=== PATIENT | female | born 1985 | race American Indian/Alaskan Native ===

== ENCOUNTER 2016-05-15 03:18 | Emergency (ER) | payer OTHER ==
[2016-05-15 05:17] LABS: Basophils % (Auto) 0.5 % (0.0-1.8); Eosinophils % (Auto) 1.4 % (0.0-4.3); Hemoglobin 14.2 gm/dl (10.1-14.3); Mean Corpuscular HGB Conc 35 % (30-34); Mean Corpuscular Hemoglobin 32 pg (28-32); Mean Corpuscular Volume 91 fl (79-97); Platelet Count 241 K/mm3 (140-440); Red Blood Count 4.51 M/mm3 (3.65-5.03); Red Cell Distribution Width 13.8 % (13.2-15.2); White Blood Count 7.9 K/mm3 (4.5-11.0)
[2016-05-15 05:23] LABS: BUN/Creatinine Ratio 17.14; Blood Urea Nitrogen 12 mg/dL (7-17); Calcium 9.2 mg/dL (8.4-10.2); Carbon Dioxide 24 mmol/L (22-30); Chloride 98.1 mmol/L (98-107); Glucose 122 mg/dL (65-100); Potassium 4.3 mmol/L (3.6-5.0); Sodium 137 mmol/L (137-145)
[2016-05-15 05:44] LABS: Anion Gap 19 mmol/L
[2016-05-15 09:32] VITALS: BP 125/87
--- NOTE | 2016-05-15 10:12 | Emergency Department Report ---
ED ENT HPI - General Chief complaint: Sore Throat Stated complaint: SORE THROAT Time Seen by Provider: 05/15/16 09:40 Source: patient Mode of arrival: Ambulatory Limitations: No Limitations - History of Present Illness Initial comments: 31 y/o female complain of sore throat x 2 month . complaint: sore throat Onset/Timin -: days(s) Location: throat Severity: moderate Severity scale (0 -10): 3 Quality: aching Consistency: constant Improves with: none Worsens with: none - Related Data Previous Rx's Medication Instructions Recorded Last Taken Type Azithromycin [Zithromax Z-LUCAS] 250 mg PO DAILY #7 tab 12/29/12 01/03/13 07:30 Rx Prednisone 20 mg PO QDAY #5 tablet 12/29/12 Unknown Rx Ciprofloxacin HCl [Cipro] 500 mg PO Q12H #14 tab 09/02/14 Unknown Rx HYDROcodone/APAP 5-325 [Pima 1 each PO Q6HR PRN #20 tablet 09/02/14 Unknown Rx 5/325] Ibuprofen [Motrin] 600 mg PO Q8H PRN #50 tablet 09/02/14 Unknown Rx Amoxicillin [Amoxicillin TAB] 875 mg PO BID #20 tablet 04/03/16 Unknown Rx Cetirizine HCl [ZyrTEC] 10 mg PO QDAY #30 capsule 04/03/16 Unknown Rx Fluticasone [Flonase] 1 spray NS QDAY #1 bottle 04/03/16 Unknown Rx guaiFENesin/DEXTROMETHORPHAN 1 each PO BID #20 tbmp.12hr 04/03/16 Unknown Rx [Mucinex Dm ER 1,200-60 mg Tab] ALBUTEROL Inhaler [Proair] 2 puff IH QID PRN #1 inhalation 04/06/16 Unknown Rx Azelastine 0.1% (Nf) [Astelin (Nf)] 137 mcg NS QDAY #1 ml 04/06/16 Unknown Rx Ibuprofen [Motrin] 600 mg PO Q8H PRN #20 tablet 04/06/16 Unknown Rx Amoxicillin/K Clav Tab [Augmentin 1 tab PO Q12HR #20 tab 05/15/16 Unknown Rx 875 mg] Ibuprofen [Motrin] 800 mg PO Q8HR PRN #30 tablet 05/15/16 Unknown Rx Allergies Allergy/AdvReac Type Severity Reaction Status Date / Time Sulfa (Sulfonamide Allergy Unknown Verified 05/15/16 03:21 Antibiotics) ED Dental HPI - General Chief complaint: Sore Throat Stated complaint: SORE THROAT Time Seen by Provider: 05/15/16 09:40 Source: patient Mode of arrival: Ambulatory Limitations: No Limitations - Related Data Previous Rx's Medication Instructions Recorded Last Taken Type Azithromycin [Zithromax Z-LUCAS] 250 mg PO DAILY #7 tab 12/29/12 01/03/13 07:30 Rx Prednisone 20 mg PO QDAY #5 tablet 12/29/12 Unknown Rx Ciprofloxacin HCl [Cipro] 500 mg PO Q12H #14 tab 09/02/14 Unknown Rx HYDROcodone/APAP 5-325 [Pima 1 each PO Q6HR PRN #20 tablet 09/02/14 Unknown Rx 5/325] Ibuprofen [Motrin] 600 mg PO Q8H PRN #50 tablet 09/02/14 Unknown Rx Amoxicillin [Amoxicillin TAB] 875 mg PO BID #20 tablet 04/03/16 Unknown Rx Cetirizine HCl [ZyrTEC] 10 mg PO QDAY #30 capsule 04/03/16 Unknown Rx Fluticasone [Flonase] 1 spray NS QDAY #1 bottle 04/03/16 Unknown Rx guaiFENesin/DEXTROMETHORPHAN 1 each PO BID #20 tbmp.12hr 04/03/16 Unknown Rx [Mucinex Dm ER 1,200-60 mg Tab] ALBUTEROL Inhaler [Proair] 2 puff IH QID PRN #1 inhalation 04/06/16 Unknown Rx Azelastine 0.1% (Nf) [Astelin (Nf)] 137 mcg NS QDAY #1 ml 04/06/16 Unknown Rx Ibuprofen [Motrin] 600 mg PO Q8H PRN #20 tablet 04/06/16 Unknown Rx Amoxicillin/K Clav Tab [Augmentin 1 tab PO Q12HR #20 tab 05/15/16 Unknown Rx 875 mg] Ibuprofen [Motrin] 800 mg PO Q8HR PRN #30 tablet 05/15/16 Unknown Rx Allergies Allergy/AdvReac Type Severity Reaction Status Date / Time Sulfa (Sulfonamide Allergy Unknown Verified 05/15/16 03:21 Antibiotics) ED Review of Systems ROS: Stated complaint: SORE THROAT Other details as noted in HPI Constitutional: denies: chills, fever Eyes: denies: eye pain, eye discharge, vision change ENT: throat pain. denies: ear pain Respiratory: denies: cough, shortness of breath, wheezing Cardiovascular: denies: chest pain, palpitations Endocrine: no symptoms reported Gastrointestinal: denies: abdominal pain, nausea, diarrhea Genitourinary: denies: urgency, dysuria, discharge Musculoskeletal: denies: back pain, joint swelling, arthralgia Skin: denies: rash, lesions Neurological: denies: headache, weakness, paresthesias Psychiatric: denies: anxiety, depression Hematological/Lymphatic: denies: easy bleeding, easy bruising ED Past Medical Hx - Past Medical History Previous Medical History?: Yes Hx Congestive Heart Failure: Yes (in 2006 related) Additional medical history: Vaginal delivery x 3 - Surgical History Past Surgical History?: Yes Additional Surgical History: hernia repair x 2, endoscopy - Social History Smoking Status: Never Smoker Substance Use Type: None - Medications Home Medications: Home Medications Medication Instructions Recorded Confirmed Last Taken Type Azithromycin [Zithromax Z-LUCAS] 250 mg PO DAILY #7 tab 12/29/12 01/03/13 07:30 Rx Prednisone 20 mg PO QDAY #5 tablet 12/29/12 01/03/13 Unknown Rx Ciprofloxacin HCl [Cipro] 500 mg PO Q12H #14 tab 09/02/14 Unknown Rx HYDROcodone/APAP 5-325 [Pima 1 each PO Q6HR PRN #20 tablet 09/02/14 Unknown Rx 5/325] Ibuprofen [Motrin] 600 mg PO Q8H PRN #50 tablet 09/02/14 Unknown Rx Amoxicillin [Amoxicillin TAB] 875 mg PO BID #20 tablet 04/03/16 Unknown Rx Cetirizine HCl [ZyrTEC] 10 mg PO QDAY #30 capsule 04/03/16 Unknown Rx Fluticasone [Flonase] 1 spray NS QDAY #1 bottle 04/03/16 Unknown Rx guaiFENesin/DEXTROMETHORPHAN 1 each PO BID #20 tbmp.12hr 04/03/16 Unknown Rx [Mucinex Dm ER 1,200-60 mg Tab] ALBUTEROL Inhaler [Proair] 2 puff IH QID PRN #1 inhalation 04/06/16 Unknown Rx Azelastine 0.1% (Nf) [Astelin (Nf)] 137 mcg NS QDAY #1 ml 04/06/16 Unknown Rx Ibuprofen [Motrin] 600 mg PO Q8H PRN #20 tablet 04/06/16 Unknown Rx Amoxicillin/K Clav Tab [Augmentin 1 tab PO Q12HR #20 tab 05/15/16 Unknown Rx 875 mg] Ibuprofen [Motrin] 800 mg PO Q8HR PRN #30 tablet 05/15/16 Unknown Rx ED Physical Exam - General Limitations: No Limitations General appearance: alert, in no apparent distress - Head Head exam: Present: atraumatic, normocephalic - Eye Eye exam: Present: normal appearance - ENT ENT exam: Present: mucous membranes moist - Expanded ENT Exam Expanded Ear exam: Present: normal external inspection Mouth exam: Absent: drooling, trismus, muffled voice Throat exam: Positive: tonsillomegaly, tonsillar exudate - Neck Neck exam: Present: normal inspection - Respiratory Respiratory exam: Present: normal lung sounds bilaterally. Absent: respiratory distress - Cardiovascular Cardiovascular Exam: Present: regular rate, normal rhythm. Absent: systolic murmur, diastolic murmur, rubs, gallop - GI/Abdominal GI/Abdominal exam: Present: soft, normal bowel sounds - Extremities Exam Extremities exam: Present: normal inspection - Back Exam Back exam: Present: normal inspection - Neurological Exam Neurological exam: Present: alert, oriented X3 - Psychiatric Psychiatric exam: Present: normal affect, normal mood - Skin Skin exam: Present: warm, dry, intact, normal color. Absent: rash ED Course Vital Signs 05/15/16 05/15/16 03:22 09:31 Temperature 99.3 F 99.4 F Pulse Rate 97 H 91 H Respiratory 18 Rate Blood Pressure 148/91 Blood Pressure 125/87 [Left] O2 Sat by Pulse 99 99 Oximetry ED Medical Decision Making - Lab Data Result diagrams: 05/15/16 04:47 05/15/16 04:47 - Medical Decision Making Pharyngitis pt has been evaluate three time in the last month for sore throat .pt to follow up with ENT Critical care attestation.: If time is entered above; I have spent that time in minutes in the direct care of this critically ill patient, excluding procedure time. ED Disposition Clinical Impression: Pharyngitis Qualifiers: Pharyngitis/tonsillitis etiology: unspecified etiology Qualified Code(s): J02.9 - Acute pharyngitis, unspecified Disposition: DISCHARGED TO HOME OR SELFCARE Is pt being admited?: No Does the pt Need Aspirin: No Condition: Stable Instructions: Pharyngitis (ED) Additional Instructions: follow up with ENT Prescriptions: Amoxicillin/K Clav Tab [Augmentin 875 mg] 1 tab PO Q12HR #20 tab Ibuprofen [Motrin] 800 mg PO Q8HR PRN #30 tablet PRN Reason: Pain Referrals: PRIMARY CAREMD [Primary Care Provider] - 3-5 Days MIGNON HORTON MD [Staff Physician] - 3-5 Days Forms: Work/School Release Form(ED) Time of Disposition: 10:15
== END 2016-05-15 10:21 | disposition home or self-care (01) ==
LOC: ED 03:18
DX: J02.9 Acute pharyngitis, unspecified (principal); I50.9 Heart failure, unspecified; Z88.2 Allergy status to sulfonamides
CPT/HCPCS: 36415; 80048; 85025; 87116; 87430; 99283

== ENCOUNTER 2016-05-17 18:19 | Emergency (ER) | payer OTHER ==
--- NOTE | 2016-05-17 23:14 | Emergency Department Report ---
ED ENT HPI - General Chief complaint: Sore Throat Stated complaint: FEVER/SORE THROAT/BODY ACHES Time Seen by Provider: 05/17/16 23:10 Source: patient Mode of arrival: Ambulatory Limitations: No Limitations - History of Present Illness Initial comments: 31-year-old female comes in for sore throat that's been going on since 2015. She was most recently seen on 05/15/2016 for sore throat with cultures that came back negative for strep. She still complains of difficulty swallowing pain not improved while being on Augmentin. She also reports that she is still running a fever. MD complaint: sore throat - Related Data Previous Rx's Medication Instructions Recorded Last Taken Type Azithromycin [Zithromax Z-LUCAS] 250 mg PO DAILY #7 tab 12/29/12 01/03/13 07:30 Rx Prednisone 20 mg PO QDAY #5 tablet 12/29/12 Unknown Rx Ciprofloxacin HCl [Cipro] 500 mg PO Q12H #14 tab 09/02/14 Unknown Rx HYDROcodone/APAP 5-325 [Mccormick 1 each PO Q6HR PRN #20 tablet 09/02/14 Unknown Rx 5/325] Ibuprofen [Motrin] 600 mg PO Q8H PRN #50 tablet 09/02/14 Unknown Rx Amoxicillin [Amoxicillin TAB] 875 mg PO BID #20 tablet 04/03/16 Unknown Rx Cetirizine HCl [ZyrTEC] 10 mg PO QDAY #30 capsule 04/03/16 Unknown Rx Fluticasone [Flonase] 1 spray NS QDAY #1 bottle 04/03/16 Unknown Rx guaiFENesin/DEXTROMETHORPHAN 1 each PO BID #20 tbmp.12hr 04/03/16 Unknown Rx [Mucinex Dm ER 1,200-60 mg Tab] ALBUTEROL Inhaler [Proair] 2 puff IH QID PRN #1 inhalation 04/06/16 Unknown Rx Azelastine 0.1% (Nf) [Astelin (Nf)] 137 mcg NS QDAY #1 ml 04/06/16 Unknown Rx Ibuprofen [Motrin] 600 mg PO Q8H PRN #20 tablet 04/06/16 Unknown Rx Amoxicillin/K Clav Tab [Augmentin 1 tab PO Q12HR #20 tab 05/15/16 Unknown Rx 875 mg] Ibuprofen [Motrin] 800 mg PO Q8HR PRN #30 tablet 05/15/16 Unknown Rx Prednisone [predniSONE 5 mg (6-Day 5 mg PO .TAPER #1 tab.ds.pk 05/18/16 Unknown Rx Pack, 21 Tabs)] Allergies Allergy/AdvReac Type Severity Reaction Status Date / Time Sulfa (Sulfonamide Allergy Unknown Verified 05/15/16 03:21 Antibiotics) ED Dental HPI - General Chief complaint: Sore Throat Stated complaint: FEVER/SORE THROAT/BODY ACHES Time Seen by Provider: 05/17/16 23:10 Source: patient Mode of arrival: Ambulatory Limitations: No Limitations - Related Data Previous Rx's Medication Instructions Recorded Last Taken Type Azithromycin [Zithromax Z-LUCAS] 250 mg PO DAILY #7 tab 12/29/12 01/03/13 07:30 Rx Prednisone 20 mg PO QDAY #5 tablet 12/29/12 Unknown Rx Ciprofloxacin HCl [Cipro] 500 mg PO Q12H #14 tab 09/02/14 Unknown Rx HYDROcodone/APAP 5-325 [Mccormick 1 each PO Q6HR PRN #20 tablet 09/02/14 Unknown Rx 5/325] Ibuprofen [Motrin] 600 mg PO Q8H PRN #50 tablet 09/02/14 Unknown Rx Amoxicillin [Amoxicillin TAB] 875 mg PO BID #20 tablet 04/03/16 Unknown Rx Cetirizine HCl [ZyrTEC] 10 mg PO QDAY #30 capsule 04/03/16 Unknown Rx Fluticasone [Flonase] 1 spray NS QDAY #1 bottle 04/03/16 Unknown Rx guaiFENesin/DEXTROMETHORPHAN 1 each PO BID #20 tbmp.12hr 04/03/16 Unknown Rx [Mucinex Dm ER 1,200-60 mg Tab] ALBUTEROL Inhaler [Proair] 2 puff IH QID PRN #1 inhalation 04/06/16 Unknown Rx Azelastine 0.1% (Nf) [Astelin (Nf)] 137 mcg NS QDAY #1 ml 04/06/16 Unknown Rx Ibuprofen [Motrin] 600 mg PO Q8H PRN #20 tablet 04/06/16 Unknown Rx Amoxicillin/K Clav Tab [Augmentin 1 tab PO Q12HR #20 tab 05/15/16 Unknown Rx 875 mg] Ibuprofen [Motrin] 800 mg PO Q8HR PRN #30 tablet 05/15/16 Unknown Rx Prednisone [predniSONE 5 mg (6-Day 5 mg PO .TAPER #1 tab.ds.pk 05/18/16 Unknown Rx Pack, 21 Tabs)] Allergies Allergy/AdvReac Type Severity Reaction Status Date / Time Sulfa (Sulfonamide Allergy Unknown Verified 05/15/16 03:21 Antibiotics) ED Review of Systems ROS: Stated complaint: FEVER/SORE THROAT/BODY ACHES Other details as noted in HPI Constitutional: chills, fever ENT: throat pain Respiratory: denies: cough, shortness of breath, wheezing Cardiovascular: denies: chest pain, palpitations Endocrine: no symptoms reported Gastrointestinal: denies: abdominal pain, nausea, diarrhea Genitourinary: denies: urgency, dysuria, discharge Musculoskeletal: denies: back pain, joint swelling, arthralgia ED Past Medical Hx - Past Medical History Previous Medical History?: Yes Hx Congestive Heart Failure: Yes (in 2005 related) Additional medical history: Vaginal delivery x 3 - Surgical History Past Surgical History?: Yes Additional Surgical History: hernia repair x 2, endoscopy - Social History Smoking Status: Never Smoker Substance Use Type: None - Medications Home Medications: Home Medications Medication Instructions Recorded Confirmed Last Taken Type Azithromycin [Zithromax Z-LUCAS] 250 mg PO DAILY #7 tab 12/29/12 01/03/13 07:30 Rx Prednisone 20 mg PO QDAY #5 tablet 12/29/12 01/03/13 Unknown Rx Ciprofloxacin HCl [Cipro] 500 mg PO Q12H #14 tab 09/02/14 Unknown Rx HYDROcodone/APAP 5-325 [Mccormick 1 each PO Q6HR PRN #20 tablet 09/02/14 Unknown Rx 5/325] Ibuprofen [Motrin] 600 mg PO Q8H PRN #50 tablet 09/02/14 Unknown Rx Amoxicillin [Amoxicillin TAB] 875 mg PO BID #20 tablet 04/03/16 Unknown Rx Cetirizine HCl [ZyrTEC] 10 mg PO QDAY #30 capsule 04/03/16 Unknown Rx Fluticasone [Flonase] 1 spray NS QDAY #1 bottle 04/03/16 Unknown Rx guaiFENesin/DEXTROMETHORPHAN 1 each PO BID #20 tbmp.12hr 04/03/16 Unknown Rx [Mucinex Dm ER 1,200-60 mg Tab] ALBUTEROL Inhaler [Proair] 2 puff IH QID PRN #1 inhalation 04/06/16 Unknown Rx Azelastine 0.1% (Nf) [Astelin (Nf)] 137 mcg NS QDAY #1 ml 04/06/16 Unknown Rx Ibuprofen [Motrin] 600 mg PO Q8H PRN #20 tablet 04/06/16 Unknown Rx Amoxicillin/K Clav Tab [Augmentin 1 tab PO Q12HR #20 tab 05/15/16 Unknown Rx 875 mg] Ibuprofen [Motrin] 800 mg PO Q8HR PRN #30 tablet 05/15/16 Unknown Rx Prednisone [predniSONE 5 mg (6-Day 5 mg PO .TAPER #1 tab.ds.pk 05/18/16 Unknown Rx Pack, 21 Tabs)] ED Physical Exam - General Limitations: No Limitations General appearance: alert - ENT ENT exam: Present: mucous membranes moist, TM's normal bilaterally - Expanded ENT Exam Expanded Throat exam: Positive: tonsillar erythema, tonsillomegaly, tonsillar exudate - Neck Neck exam: Present: tenderness, full ROM, lymphadenopathy - Respiratory Respiratory exam: Present: normal lung sounds bilaterally - Cardiovascular Cardiovascular Exam: Present: regular rate, normal rhythm, normal heart sounds - GI/Abdominal GI/Abdominal exam: Present: soft. Absent: distended, tenderness ED Course Vital Signs 05/17/16 05/17/16 05/18/16 20:14 23:44 00:14 Temperature 100.9 F H Pulse Rate 122 H Respiratory 18 16 16 Rate Blood Pressure 152/96 Blood Pressure [Right] O2 Sat by Pulse 100 Oximetry 05/18/16 00:25 Temperature 100.2 F H Pulse Rate 116 H Respiratory 16 Rate Blood Pressure Blood Pressure 142/83 [Right] O2 Sat by Pulse 97 Oximetry ED Medical Decision Making - Lab Data Result diagrams: 05/17/16 23:20 05/17/16 23:20 - Radiology Data Radiology results: image reviewed FINAL REPORT PROCEDURE: XR NECK SOFT TISSUE TECHNIQUE: Soft tissue neck radiographs, 2 views, including AP and lateral. CPT 18289 HISTORY: throat pain that is not responding to abx COMPARISON: No prior studies are available for comparison. FINDINGS: Bone mineralization: Normal. Alignment: Normal. Soft tissues: Epiglottis and hypopharyngeal soft tissues normal. Foreign bodies: None. IMPRESSION: Normal Examination. Transcribed By: [facility] Dictated By: ZOIE MCCANN MD Electronically Authenticated By: ZOIE MCCANN MD Signed Date/Time: 05/18/16 0304 - Medical Decision Making Patient's been evaluated by this provider. This case was discussed with Dr. Kraft. Please IV. The patient a bolus of normal saline 1000 mL's as well as an IV of ceftriaxone and Decadron and morphine 2 mg. Patient was reevaluated she says she felt somewhat better but still difficulty swallowing so this provider when ahead and did a soft tissue neck x-ray which came back within normal limits. We will discharge patient on a prednisone taper she is to continue with the Augmentin and ibuprofen for pain and coverage. Will place patient for referral to Dr. Nolan Pablo ear nose and throat doctor. Patient verbalized understanding. Critical care attestation.: If time is entered above; I have spent that time in minutes in the direct care of this critically ill patient, excluding procedure time. ED Disposition Clinical Impression: Sublingual gland swelling Pharyngitis Qualifiers: Pharyngitis/tonsillitis etiology: unspecified etiology Qualified Code(s): J02.9 - Acute pharyngitis, unspecified Disposition: DISCHARGED TO HOME OR SELFCARE Is pt being admited?: No Does the pt Need Aspirin: No Condition: Stable Instructions: Pharyngitis (ED) Additional Instructions: Complete her antibiotics as prescribed on May 15, take the steroid taper pack as prescribed. We will refer you to her ear nose and throat for further evaluation. Can continue with the pain medication as prescribed. Prescriptions: Prednisone [predniSONE 5 mg (6-Day Pack, 21 Tabs)] 5 mg PO .TAPER #1 tab.ds.pk Referrals: SHOAIB WOOD MD [Staff Physician] - 3-5 Days NEO BRIONES MD [Staff Physician] - 3-5 Days Forms: Work/School Release Form(ED)
[2016-05-17 23:29] LABS: Hematocrit 40.2 % (30.3-42.9); Hemoglobin 13.3 gm/dl (10.1-14.3); Mean Corpuscular HGB Conc 33 % (30-34); Mean Corpuscular Hemoglobin 30 pg (28-32); Mean Corpuscular Volume 91 fl (79-97); Platelet Count 210 K/mm3 (140-440); Red Blood Count 4.42 M/mm3 (3.65-5.03); Red Cell Distribution Width 13.5 % (13.2-15.2); White Blood Count 8.7 K/mm3 (4.5-11.0)
[2016-05-17] MEDS: DECADRON IV ONE (23:43)
[2016-05-17] MEDS: MORPHINE IV ONE (23:44)
[2016-05-17] MEDS: NACL 0.9% 1000 ML IV SCH (23:44)
[2016-05-17 23:51] LABS: Anion Gap 20 mmol/L; Blood Urea Nitrogen 6 mg/dL (7-17); Calcium 9.2 mg/dL (8.4-10.2); Carbon Dioxide 23 mmol/L (22-30); Chloride 93.2 mmol/L (98-107); Glucose 113 mg/dL (65-100); Potassium 3.7 mmol/L (3.6-5.0); Sodium 132 mmol/L (137-145)
[2016-05-18] MEDS: ROCEPHIN 500 MG in NACL 0.9% 50 ML IV SCH (00:24)
[2016-05-18 00:26] VITALS: BP 142/83
--- NOTE | 2016-05-18 02:07 | XRay Report ---
FINAL REPORT PROCEDURE: XR NECK SOFT TISSUE TECHNIQUE: Soft tissue neck radiographs, 2 views, including AP and lateral. CPT 32941 HISTORY: throat pain that is not responding to abx COMPARISON: No prior studies are available for comparison. FINDINGS: Bone mineralization: Normal. Alignment: Normal. Soft tissues: Epiglottis and hypopharyngeal soft tissues normal. Foreign bodies: None. IMPRESSION: Normal Examination.
== END 2016-05-18 03:26 | disposition home or self-care (01) ==
LOC: ED 18:19
DX: K11.8 Other diseases of salivary glands (principal); J02.9 Acute pharyngitis, unspecified; I50.9 Heart failure, unspecified; Z88.2 Allergy status to sulfonamides
CPT/HCPCS: 36415; 70360; 80048; 85027; 86308; 96361; 96365; 96375; 99284; J0696; J1100; J2270; J7030

== ENCOUNTER 2016-08-10 18:38 | Emergency (ER) | payer SELFPAY ==
[2016-08-10 20:07] VITALS: BP 144/107
--- NOTE | 2016-08-10 22:05 | Emergency Department Report ---
ED ENT HPI - General Chief complaint: Sore Throat Stated complaint: SORETHROAT Time Seen by Provider: 08/10/16 21:07 Source: patient Mode of arrival: Ambulatory Limitations: No Limitations - History of Present Illness Initial comments: This is a 31-year-old female that presents with sore throat for the past 7 months. Patient stated that sore throat comes and goes from time to time. Patient also stated that she take a test 3 days ago and is positive. Patient stated has been treating sore throat with many different antibiotics and steroids. Last dose of antibiotics was last month of Rocephin IV in the ED. Patient denies fever, chills, shortness of breath, chest pain, numbness or tingling, nausea or vomiting, cough, wheezing, rhinorrhea, abdominal pain, pelvic pain. Patient stated she does not have a primary care doctor and is currently in the process of getting one. At this visit the patient denies sore throat but believes it will return either tomorrow or couple days. Patient is well-nourished. She does not seem toxic or ill in appearance. No signs of distress noted. MD complaint: sore throat -: Gradual, month(s) (7) Location: throat Severity scale (0 -10): 0 Consistency: intermittent Context-Epistaxis: history of similar Associated Symptoms: denies: fever, cough, gum swelling, toothache, pain with swallowing, sore throat, tinnitus, hearing loss, discharge from ear, rhinorrhea - Related Data Previous Rx's Medication Instructions Recorded Last Taken Type Azithromycin [Zithromax Z-LUCAS] 250 mg PO DAILY #7 tab 12/29/12 01/03/13 07:30 Rx Prednisone 20 mg PO QDAY #5 tablet 12/29/12 Unknown Rx Ciprofloxacin HCl [Cipro] 500 mg PO Q12H #14 tab 09/02/14 Unknown Rx HYDROcodone/APAP 5-325 [[place] 1 each PO Q6HR PRN #20 tablet 09/02/14 Unknown Rx 5/325] Ibuprofen [Motrin] 600 mg PO Q8H PRN #50 tablet 09/02/14 Unknown Rx Amoxicillin [Amoxicillin TAB] 875 mg PO BID #20 tablet 04/03/16 Unknown Rx Cetirizine HCl [ZyrTEC] 10 mg PO QDAY #30 capsule 04/03/16 Unknown Rx Fluticasone [Flonase] 1 spray NS QDAY #1 bottle 04/03/16 Unknown Rx guaiFENesin/DEXTROMETHORPHAN 1 each PO BID #20 tbmp.12hr 04/03/16 Unknown Rx [Mucinex Dm ER 1,200-60 mg Tab] ALBUTEROL Inhaler [Proair] 2 puff IH QID PRN #1 inhalation 04/06/16 Unknown Rx Azelastine 0.1% (Nf) [Astelin (Nf)] 137 mcg NS QDAY #1 ml 04/06/16 Unknown Rx Ibuprofen [Motrin] 600 mg PO Q8H PRN #20 tablet 04/06/16 Unknown Rx Amoxicillin/K Clav Tab [Augmentin 1 tab PO Q12HR #20 tab 05/15/16 Unknown Rx 875 mg] Ibuprofen [Motrin] 800 mg PO Q8HR PRN #30 tablet 05/15/16 Unknown Rx Prednisone [predniSONE 5 mg (6-Day 5 mg PO .TAPER #1 tab.ds.pk 05/18/16 Unknown Rx Pack, 21 Tabs)] Allergies Allergy/AdvReac Type Severity Reaction Status Date / Time Sulfa (Sulfonamide Allergy Unknown Verified 05/15/16 03:21 Antibiotics) ED Dental HPI - General Chief complaint: Sore Throat Stated complaint: SORETHROAT Time Seen by Provider: 08/10/16 21:07 Source: patient Mode of arrival: Ambulatory Limitations: No Limitations - Related Data Previous Rx's Medication Instructions Recorded Last Taken Type Azithromycin [Zithromax Z-LUCAS] 250 mg PO DAILY #7 tab 12/29/12 01/03/13 07:30 Rx Prednisone 20 mg PO QDAY #5 tablet 12/29/12 Unknown Rx Ciprofloxacin HCl [Cipro] 500 mg PO Q12H #14 tab 09/02/14 Unknown Rx HYDROcodone/APAP 5-325 [[place] 1 each PO Q6HR PRN #20 tablet 09/02/14 Unknown Rx 5/325] Ibuprofen [Motrin] 600 mg PO Q8H PRN #50 tablet 09/02/14 Unknown Rx Amoxicillin [Amoxicillin TAB] 875 mg PO BID #20 tablet 04/03/16 Unknown Rx Cetirizine HCl [ZyrTEC] 10 mg PO QDAY #30 capsule 04/03/16 Unknown Rx Fluticasone [Flonase] 1 spray NS QDAY #1 bottle 04/03/16 Unknown Rx guaiFENesin/DEXTROMETHORPHAN 1 each PO BID #20 tbmp.12hr 04/03/16 Unknown Rx [Mucinex Dm ER 1,200-60 mg Tab] ALBUTEROL Inhaler [Proair] 2 puff IH QID PRN #1 inhalation 04/06/16 Unknown Rx Azelastine 0.1% (Nf) [Astelin (Nf)] 137 mcg NS QDAY #1 ml 04/06/16 Unknown Rx Ibuprofen [Motrin] 600 mg PO Q8H PRN #20 tablet 04/06/16 Unknown Rx Amoxicillin/K Clav Tab [Augmentin 1 tab PO Q12HR #20 tab 05/15/16 Unknown Rx 875 mg] Ibuprofen [Motrin] 800 mg PO Q8HR PRN #30 tablet 05/15/16 Unknown Rx Prednisone [predniSONE 5 mg (6-Day 5 mg PO .TAPER #1 tab.ds.pk 05/18/16 Unknown Rx Pack, 21 Tabs)] Allergies Allergy/AdvReac Type Severity Reaction Status Date / Time Sulfa (Sulfonamide Allergy Unknown Verified 05/15/16 03:21 Antibiotics) ED Review of Systems ROS: Stated complaint: SORETHROAT Other details as noted in HPI Constitutional: denies: chills, fever Eyes: denies: eye pain, eye discharge, vision change ENT: denies: ear pain, throat pain Respiratory: denies: cough, shortness of breath, wheezing Cardiovascular: denies: chest pain, palpitations Endocrine: no symptoms reported Gastrointestinal: denies: abdominal pain, nausea, diarrhea Genitourinary: denies: urgency, dysuria, discharge Musculoskeletal: denies: back pain, joint swelling, arthralgia Skin: denies: rash, lesions Neurological: denies: headache, weakness, paresthesias Psychiatric: denies: anxiety, depression Hematological/Lymphatic: denies: easy bleeding, easy bruising ED Past Medical Hx - Past Medical History Hx Congestive Heart Failure: Yes (in 2005 related) Additional medical history: Vaginal delivery x 3 - Surgical History Additional Surgical History: hernia repair x 2, endoscopy - Social History Smoking Status: Former Smoker Substance Use Type: None - Medications Home Medications: Home Medications Medication Instructions Recorded Confirmed Last Taken Type Azithromycin [Zithromax Z-LUCAS] 250 mg PO DAILY #7 tab 12/29/12 01/03/13 07:30 Rx Prednisone 20 mg PO QDAY #5 tablet 12/29/12 01/03/13 Unknown Rx Ciprofloxacin HCl [Cipro] 500 mg PO Q12H #14 tab 09/02/14 Unknown Rx HYDROcodone/APAP 5-325 [[place] 1 each PO Q6HR PRN #20 tablet 09/02/14 Unknown Rx 5/325] Ibuprofen [Motrin] 600 mg PO Q8H PRN #50 tablet 09/02/14 Unknown Rx Amoxicillin [Amoxicillin TAB] 875 mg PO BID #20 tablet 04/03/16 Unknown Rx Cetirizine HCl [ZyrTEC] 10 mg PO QDAY #30 capsule 04/03/16 Unknown Rx Fluticasone [Flonase] 1 spray NS QDAY #1 bottle 04/03/16 Unknown Rx guaiFENesin/DEXTROMETHORPHAN 1 each PO BID #20 tbmp.12hr 04/03/16 Unknown Rx [Mucinex Dm ER 1,200-60 mg Tab] ALBUTEROL Inhaler [Proair] 2 puff IH QID PRN #1 inhalation 04/06/16 Unknown Rx Azelastine 0.1% (Nf) [Astelin (Nf)] 137 mcg NS QDAY #1 ml 04/06/16 Unknown Rx Ibuprofen [Motrin] 600 mg PO Q8H PRN #20 tablet 04/06/16 Unknown Rx Amoxicillin/K Clav Tab [Augmentin 1 tab PO Q12HR #20 tab 05/15/16 Unknown Rx 875 mg] Ibuprofen [Motrin] 800 mg PO Q8HR PRN #30 tablet 05/15/16 Unknown Rx Prednisone [predniSONE 5 mg (6-Day 5 mg PO .TAPER #1 tab.ds.pk 05/18/16 Unknown Rx Pack, 21 Tabs)] ED Physical Exam - General Limitations: No Limitations General appearance: alert, in no apparent distress - Head Head exam: Present: atraumatic, normocephalic - Eye Eye exam: Present: normal appearance, PERRL, EOMI - ENT ENT exam: Present: normal exam, normal orophraynx, mucous membranes moist, TM's normal bilaterally, normal external ear exam - Neck Neck exam: Present: normal inspection, full ROM. Absent: tenderness, meningismus, lymphadenopathy - Respiratory Respiratory exam: Present: normal lung sounds bilaterally. Absent: respiratory distress, wheezes, rales, rhonchi, stridor, chest wall tenderness, accessory muscle use, decreased breath sounds, prolonged expiratory - Cardiovascular Cardiovascular Exam: Present: regular rate, normal rhythm. Absent: systolic murmur, diastolic murmur, rubs, gallop - GI/Abdominal GI/Abdominal exam: Present: soft, normal bowel sounds. Absent: distended, tenderness, guarding, rebound, rigid - Extremities Exam Extremities exam: Present: normal inspection, full ROM, normal capillary refill. Absent: tenderness, pedal edema, joint swelling, calf tenderness - Back Exam Back exam: Present: normal inspection - Neurological Exam Neurological exam: Present: alert, oriented X3, CN II-XII intact, normal gait - Psychiatric Psychiatric exam: Present: normal affect, normal mood - Skin Skin exam: Present: warm, dry, intact, normal color. Absent: rash ED Course Vital Signs 08/10/16 08/10/16 20:00 22:31 Temperature 98.9 F Pulse Rate 93 H 89 Respiratory 18 Rate Blood Pressure 144/107 Blood Pressure 144/107 [Left] O2 Sat by Pulse 100 100 Oximetry ED Medical Decision Making - Medical Decision Making ED course: 29-year-old female that presents with sore throat 7 months. 1- strep throat has been obtained in the ED and sent to lab to rule out Streptococcus infection. Negative. 2- I notify the patient to follow up with an ENT doctor if symptoms proceed. I also instructed the patient for no current treatment due to no symptoms of infection or needing of steroids or any other treatment. 3- patient agrees to discharge plan. Patient does not seem toxic or ill in appearance at the time of discharge. No signs of distress noted. Critical care attestation.: If time is entered above; I have spent that time in minutes in the direct care of this critically ill patient, excluding procedure time. 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 Forms: Work/School Release Form(ED)
== END 2016-08-10 22:53 | disposition home or self-care (01) ==
LOC: ED 18:38
DX: J02.9 Acute pharyngitis, unspecified (principal); Z88.2 Allergy status to sulfonamides; Z87.891 Personal history of nicotine dependence; I50.9 Heart failure, unspecified
CPT/HCPCS: 87116; 87430; 99282

== ENCOUNTER 2016-09-07 13:20 | Emergency (ER) | payer SELFPAY ==
[2016-09-07 14:10] LABS: Basophils % (Auto) 0.5 % (0.0-1.8); Eosinophils % (Auto) 1.7 % (0.0-4.3); Hematocrit 38.8 % (30.3-42.9); Mean Corpuscular HGB Conc 34 % (30-34); Mean Corpuscular Hemoglobin 30 pg (28-32); Mean Corpuscular Volume 90 fl (79-97); Platelet Count 288 K/mm3 (140-440); Red Blood Count 4.31 M/mm3 (3.65-5.03); Red Cell Distribution Width 13.2 % (13.2-15.2); White Blood Count 7.8 K/mm3 (4.5-11.0)
--- NOTE | 2016-09-07 16:07 | Ultrasound Report ---
ULTRASOUND OB LESS THAN 14 WEEKS - TRANSABDOMINAL AND TRANSVAGINAL INDICATION: , bleeding. Serum beta-hCG 12,903 units. COMPARISON: None similar. FINDINGS: Transabdominal and transvaginal pelvic sonography performed in this patient with LMP of 07/13/2016 and estimated menstrual age of 8 weeks and zero days. A 10.3 x 6.5 x 6.7 cm uterus demonstrates mean gestational sac diameter of 2.28 cm, corresponding to 7 weeks and 2 days. Mean crown-rump length of 0.58 cm corresponds to 6 weeks and 3 days. No heart tones though obtained. Yolk sac measures 3 mm. No pelvic free fluid. Right ovary is 3.3 x 3 x 3 cm with a 1.5 cm cyst. Unremarkable left ovary measures 2.4 x 1.6 x 2.3 cm. CONCLUSION: 1. Sonographic findings representing intrauterine demise with ultrasound estimated gestational age of approximately 6 weeks and 6 days. Please correlate. 2. Right ovarian cyst. Thank you for the opportunity to participate in this patient's care.
--- NOTE | 2016-09-07 16:31 | Emergency Department Report ---
ED Female HPI - General Chief complaint: Vaginal Bleeding Stated complaint: 8 WKS /VAG BLEEDING Time Seen by Provider: 09/07/16 16:13 Source: patient Mode of arrival: Ambulatory Limitations: No Limitations - History of Present Illness Initial comments: PT states she is 8 weeks . PT states that she started spotting while at work today. PT states she has not seen an OUTPATIENT PSYCHIATRIST for this . PT states that her last was 4 years ago and that is the last time she thinks she has been seen by OUTPATIENT PSYCHIATRIST. PT denies abd pain or n/v MD Complaint: vaginal bleeding -: Sudden Severity scale (0 -10): 0 Consistency: constant Improves with: none Are you Now?: Yes Last Menstrual Period: 07/13/16 EDC: 04/19/17 Associated Symptoms: denies other symptoms, vaginal bleeding. denies: abdominal pain, nausea/vomiting, fever/chills, loss of appetite, dysuria - Related Data Sexually active: Yes : 5 Para: 4 Previous Rx's Medication Instructions Recorded Last Taken Type Acetaminophen/Codeine [Tylenol #3] 1 tab PO Q6H PRN #12 tab 09/07/16 Unknown Rx Allergies Allergy/AdvReac Type Severity Reaction Status Date / Time Sulfa (Sulfonamide Allergy Unknown Verified 05/15/16 03:21 Antibiotics) ED Review of Systems ROS: Stated complaint: 8 WKS /VAG BLEEDING Other details as noted in HPI Comment: All other systems reviewed and negative Constitutional: denies: fever Gastrointestinal: denies: abdominal pain, nausea, vomiting Genitourinary: abnormal menses (spotting now). denies: dysuria Psychiatric: anxiety (concerned ) ED Past Medical Hx - Past Medical History Previous Medical History?: Yes Hx Congestive Heart Failure: Yes (in 2006 related) Additional medical history: Vaginal delivery x 3 - Surgical History Past Surgical History?: Yes Additional Surgical History: hernia repair x 2, endoscopy - Social History Smoking Status: Former Smoker Substance Use Type: Non Opiate Pain, Prescribed - Medications Home Medications: Home Medications Medication Instructions Recorded Confirmed Last Taken Type Acetaminophen/Codeine [Tylenol #3] 1 tab PO Q6H PRN #12 tab 09/07/16 Unknown Rx ED Physical Exam - General Limitations: No Limitations General appearance: alert, in no apparent distress - Head Head exam: Present: atraumatic, normocephalic, normal inspection - Eye Eye exam: Present: normal appearance, PERRL, EOMI. Absent: conjunctival injection - ENT ENT exam: Present: normal exam, normal external ear exam - Neck Neck exam: Present: normal inspection, full ROM - Respiratory Respiratory exam: Present: normal lung sounds bilaterally. Absent: respiratory distress - Cardiovascular Cardiovascular Exam: Present: regular rate, normal rhythm - GI/Abdominal GI/Abdominal exam: Present: soft. Absent: tenderness - Extremities Exam Extremities exam: Present: normal inspection, full ROM - Back Exam Back exam: Present: normal inspection, full ROM - Neurological Exam Neurological exam: Present: alert, oriented X3 - Psychiatric Psychiatric exam: Present: normal affect, normal mood - Skin Skin exam: Present: warm, dry, intact ED Course Vital Signs 09/07/16 09/07/16 13:37 17:27 Temperature 98.9 F 98 F Pulse Rate 78 65 Respiratory 18 14 Rate Blood Pressure 128/83 Blood Pressure 125/90 [Left] O2 Sat by Pulse 100 99 Oximetry - Reevaluation(s) Reevaluation #1: 09/07/16 16:33 PT aware of US result. PT tearful. PT aware of expected course. PT given strict return precautions. 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 PT has no questions at this time. Reevaluation #2: 09/07/16 16:35 Dr [place] aware of pt and agrees with plan of care - Pulse Oximetry Interpretation Digit-Finger Initial Pulse Oximetry Readin Actions Taken: none ED Medical Decision Making - Lab Data Result diagrams: 09/07/16 13:52 Lab Results 09/07/16 09/07/16 09/07/16 Range/Units 13:52 13:52 14:43 WBC 7.8 (4.5-11.0) K/mm3 RBC 4.31 (3.65-5.03) M/mm3 Hgb 13.0 (10.1-14.3) gm/dl Hct 38.8 (30.3-42.9) % MCV 90 (79-97) fl MCH 30 (28-32) pg MCHC 34 (30-34) % RDW 13.2 (13.2-15.2) % Plt Count 288 (140-440) K/mm3 Lymph % (Auto) 35.4 H (13.4-35.0) % [place] % (Auto) 7.1 (0.0-7.3) % Eos % (Auto) 1.7 (0.0-4.3) % Baso % (Auto) 0.5 (0.0-1.8) % Lymph # 2.7 (1.2-5.4) K/mm3 [place] # 0.6 (0.0-0.8) K/mm3 Eos # 0.1 (0.0-0.4) K/mm3 Baso # 0.0 (0.0-0.1) K/mm3 Seg Neutrophils % 55.3 (40.0-70.0) % Seg Neutrophils # 4.3 (1.8-7.7) K/mm3 HCG, Quant 73631 H (0-4) mIU/mL Blood Type O POSITIVE - Radiology Data Radiology results: report reviewed US - demise 6 weeks, 6 days - Differential Diagnosis ectopic , early , subchorionic hemorrage, demise Critical Care Time: No Critical care attestation.: If time is entered above; I have spent that time in minutes in the direct care of this critically ill patient, excluding procedure time. ED Disposition Clinical Impression: demise Disposition: DISCHARGED TO HOME OR SELFCARE Is pt being admited?: No Does the pt Need Aspirin: No Condition: Stable Instructions: Threatened Miscarriage (ED) Additional Instructions: No driving or ETOH after taking Tylenol #3 for pain Return to the ED if you are having heavy vaginal bleeding, saturating more than a pad an hour Call OUTPATIENT PSYCHIATRIST tomorrow and set up your follow up appointment Prescriptions: Acetaminophen/Codeine [Tylenol #3] 1 tab PO Q6H PRN #12 tab PRN Reason: Pain , Severe (7-10) Referrals: [facility] [Provider Group] - 3-5 Days PRIMARY CARE, [Primary Care Provider] - 3-5 Days Forms: Work/School Release Form(ED) Time of Disposition: 16:43
[2016-09-07 17:17] LABS: Bilirubin,Urine NEG (Negative); Blood,Urine LG (Negative); Ketones,Urine NEG (Negative); Leukocyte Esterase,Urine NEG (Negative); Mucus,Urine FEW /HPF; Nitrite,Urine NEG (Negative); Protein,Urine <15 mg/dL mg/dL (Negative); Urobilinogen,Urine < 2.0 mg/dL (<2.0)
[2016-09-07 17:30] VITALS: BP 125/90
== END 2016-09-07 17:27 | disposition home or self-care (01) ==
LOC: ED 13:20
DX: O20.9 Hemorrhage in early pregnancy, unspecified (principal); I50.9 Heart failure, unspecified; Z87.891 Personal history of nicotine dependence; Z3A.08 8 weeks gestation of pregnancy
CPT/HCPCS: 36415; 76801; 76817; 81001; 84702; 85025; 86900; 86901; 99284

== ENCOUNTER 2016-09-14 10:59 | Emergency (ER) | payer MEDICAID ==
--- NOTE | 2016-09-14 12:02 | Emergency Department Report ---
Chief Complaint: Vaginal Bleeding Stated Complaint: ABD PAIN Time Seen by Provider: 09/14/16 11:56 - HPI History of Present Illness: PT states she was told last week that she is having a miscarriage, pt states she did not follow up with [employer]INING [employer]. PT states this am she started having pelvic pain and vaginal bleeding. PT States she is passing large clots. pt states she has used 2 pads today. - ROS Review of Systems: + pelvic pain + vaginal bleeding + anxiety - Exam Physical Exam: labs, us MSE screening note: Focused history and physical exam performed. Due to findings the following was ordered: ED Disposition for MSE Condition: Stable
[2016-09-14 12:25] LABS: Basophils % (Auto) 0.5 % (0.0-1.8); Eosinophils % (Auto) 1.8 % (0.0-4.3); Hematocrit 37.5 % (30.3-42.9); Hemoglobin 12.6 gm/dl (10.1-14.3); Mean Corpuscular HGB Conc 34 % (30-34); Mean Corpuscular Hemoglobin 30 pg (28-32); Mean Corpuscular Volume 89 fl (79-97); Platelet Count 277 K/mm3 (140-440); Red Cell Distribution Width 13.2 % (13.2-15.2); White Blood Count 7.6 K/mm3 (4.5-11.0)
[2016-09-14 12:44] LABS: Alanine Aminotransferase 14 units/L (7-56); Albumin 4.2 g/dL (3.9-5); Albumin/Globulin Ratio 1.4 %; Alkaline Phosphatase 47 units/L (35-129); Anion Gap 19 mmol/L; BUN/Creatinine Ratio 13.75; Blood Urea Nitrogen 11 mg/dL (7-17); Calcium 9.2 mg/dL (8.4-10.2); Carbon Dioxide 24 mmol/L (22-30); Chloride 101.1 mmol/L (98-107); Glucose 95 mg/dL (65-100); Potassium 4.2 mmol/L (3.6-5.0); Sodium 140 mmol/L (137-145); Total Protein 7.2 g/dL (6.3-8.2)
[2016-09-14 13:27] LABS: INR 1.03 (0.87-1.13)
[2016-09-14 13:28] LABS: Partial Thromboplastin Time 30.7 Sec. (24.2-36.6)
--- NOTE | 2016-09-14 13:55 | Ultrasound Report ---
Transabdominal and transvaginal pelvic ultrasound. History: Vaginal bleeding. The patient's serum hCG at the time of the study is 2243 as opposed to 12,903 on September 07. Findings: There is no evidence of intrauterine on today's study. The endometrial is thickened at 2.2 cm. The ovaries are normal in size and configuration. There is no fluid within the cul-de-sac. Impression: Thickened endometrium with no evidence of an acute on today's study. On the previous study of September 07, there was evidence of demise.
--- NOTE | 2016-09-14 15:43 | Emergency Department Report ---
ED Female HPI - General Chief complaint: Vaginal Bleeding Stated complaint: ABD PAIN Time Seen by Provider: 09/14/16 11:56 Source: patient, old records reviewed (Type and RH ) Mode of arrival: Ambulatory Limitations: No Limitations - History of Present Illness MD Complaint: vaginal bleeding -: Gradual, hour(s) Severity: severe Severity scale (0 -10): 10 Quality: other (feels like contractions ) Improves with: none Worsens with: none Are you Now?: Yes (dx with miscarriage last week ) Associated Symptoms: vaginal bleeding, abdominal pain. denies: nausea/vomiting , fever/chills, headaches, dysuria, shortness of breath - Related Data Sexually active: Yes Previous Rx's Medication Instructions Recorded Last Taken Type Acetaminophen/Codeine [Tylenol #3] 1 tab PO Q6H PRN #12 tab 09/07/16 Unknown Rx Allergies Allergy/AdvReac Type Severity Reaction Status Date / Time Sulfa (Sulfonamide Allergy Unknown Verified 09/14/16 12:03 Antibiotics) ED Review of Systems ROS: Stated complaint: ABD PAIN Other details as noted in HPI Constitutional: denies: chills, fever Gastrointestinal: abdominal pain Genitourinary: abnormal menses, other (vaginal bleeding - used two pads today ) ED Past Medical Hx - Past Medical History Hx Congestive Heart Failure: Yes (in 2006 related) Additional medical history: Vaginal delivery x 3 - Surgical History Additional Surgical History: hernia repair x 2, endoscopy - Social History Smoking Status: Never Smoker Substance Use Type: None - Medications Home Medications: Home Medications Medication Instructions Recorded Confirmed Last Taken Type Acetaminophen/Codeine [Tylenol #3] 1 tab PO Q6H PRN #12 tab 09/07/16 Unknown Rx ED Physical Exam - General Limitations: No Limitations General appearance: alert, in no apparent distress - Head Head exam: Present: atraumatic, normocephalic, normal inspection - Eye Eye exam: Present: normal appearance. Absent: conjunctival injection - ENT ENT exam: Present: normal exam, normal external ear exam - Neck Neck exam: Present: normal inspection, full ROM - Respiratory Respiratory exam: Present: normal lung sounds bilaterally. Absent: respiratory distress - Cardiovascular Cardiovascular Exam: Present: regular rate, normal rhythm - GI/Abdominal GI/Abdominal exam: Present: soft. Absent: tenderness - External exam: Present: other (pt declined. pt states she is feeling better and she wants to go home. ) - Extremities Exam Extremities exam: Present: normal inspection, full ROM - Back Exam Back exam: Present: normal inspection, full ROM. Absent: tenderness, CVA tenderness (R), CVA tenderness (L) - Neurological Exam Neurological exam: Present: alert, oriented X3 - Psychiatric Psychiatric exam: Present: normal affect, normal mood - Skin Skin exam: Present: warm, dry, intact, normal color ED Course Vital Signs 09/14/16 09/14/16 11:57 15:59 Temperature 99.6 F 99.2 F Pulse Rate 107 H 81 Respiratory 18 16 Rate Blood Pressure 127/85 128/88 O2 Sat by Pulse 100 100 Oximetry - Reevaluation(s) Reevaluation #1: 09/14/16 15:32 PT states she passed a large clot prior to going to US. PT states her pain has decreased after passing the clot. PT is wanting to be dc'd home. PT aware of lab results. PT aware of US results. 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 - Pulse Oximetry Interpretation Digit-Finger Initial Pulse Oximetry Readin Actions Taken: none ED Medical Decision Making - Lab Data Result diagrams: 09/14/16 12:03 09/14/16 12:03 Lab Results 09/14/16 09/14/16 09/14/16 Range/Units 12:03 12:03 12:03 WBC 7.6 (4.5-11.0) K/mm3 RBC 4.20 (3.65-5.03) M/mm3 Hgb 12.6 (10.1-14.3) gm/dl Hct 37.5 (30.3-42.9) % MCV 89 (79-97) fl MCH 30 (28-32) pg MCHC 34 (30-34) % RDW 13.2 (13.2-15.2) % Plt Count 277 (140-440) K/mm3 Lymph % (Auto) 22.1 (13.4-35.0) % [place] % (Auto) 7.2 (0.0-7.3) % Eos % (Auto) 1.8 (0.0-4.3) % Baso % (Auto) 0.5 (0.0-1.8) % Lymph # 1.7 (1.2-5.4) K/mm3 [place] # 0.5 (0.0-0.8) K/mm3 Eos # 0.1 (0.0-0.4) K/mm3 Baso # 0.0 (0.0-0.1) K/mm3 Seg Neutrophils % 68.4 (40.0-70.0) % Seg Neutrophils # 5.2 (1.8-7.7) K/mm3 PT 13.4 (12.2-14.9) Sec. INR 1.03 (0.87-1.13) APTT 30.7 (24.2-36.6) Sec. Sodium (137-145) mmol/L Potassium (3.6-5.0) mmol/L Chloride (98-107) mmol/L Carbon Dioxide (22-30) mmol/L Anion Gap mmol/L BUN (7-17) mg/dL Creatinine (0.7-1.2) mg/dL Estimated GFR ml/min BUN/Creatinine Ratio % Glucose (65-100) mg/dL Calcium (8.4-10.2) mg/dL Total Bilirubin (0.1-1.2) mg/dL AST (5-40) units/L ALT (7-56) units/L Alkaline Phosphatase (35-129) units/L Total Protein (6.3-8.2) g/dL Albumin (3.9-5) g/dL Albumin/Globulin Ratio % HCG, Quant 2243 H (0-4) mIU/mL 09/14/16 Range/Units 12:03 WBC (4.5-11.0) K/mm3 RBC (3.65-5.03) M/mm3 Hgb (10.1-14.3) gm/dl Hct (30.3-42.9) % MCV (79-97) fl MCH (28-32) pg MCHC (30-34) % RDW (13.2-15.2) % Plt Count (140-440) K/mm3 Lymph % (Auto) (13.4-35.0) % [place] % (Auto) (0.0-7.3) % Eos % (Auto) (0.0-4.3) % Baso % (Auto) (0.0-1.8) % Lymph # (1.2-5.4) K/mm3 [place] # (0.0-0.8) K/mm3 Eos # (0.0-0.4) K/mm3 Baso # (0.0-0.1) K/mm3 Seg Neutrophils % (40.0-70.0) % Seg Neutrophils # (1.8-7.7) K/mm3 PT (12.2-14.9) Sec. INR (0.87-1.13) APTT (24.2-36.6) Sec. Sodium 140 (137-145) mmol/L Potassium 4.2 (3.6-5.0) mmol/L Chloride 101.1 (98-107) mmol/L Carbon Dioxide 24 (22-30) mmol/L Anion Gap 19 mmol/L BUN 11 (7-17) mg/dL Creatinine 0.8 (0.7-1.2) mg/dL Estimated GFR > 60 ml/min BUN/Creatinine Ratio 13.75 % Glucose 95 (65-100) mg/dL Calcium 9.2 (8.4-10.2) mg/dL Total Bilirubin 0.30 (0.1-1.2) mg/dL AST 15 (5-40) units/L ALT 14 (7-56) units/L Alkaline Phosphatase 47 (35-129) units/L Total Protein 7.2 (6.3-8.2) g/dL Albumin 4.2 (3.9-5) g/dL Albumin/Globulin Ratio 1.4 % HCG, Quant (0-4) mIU/mL bhcg decreased from previous visit. cbc stable - Radiology Data Radiology results: report reviewed US-no evidence of intrauterine - Differential Diagnosis retained products, misscarriage Critical Care Time: No Critical care attestation.: If time is entered above; I have spent that time in minutes in the direct care of this critically ill patient, excluding procedure time. ED Disposition Clinical Impression: Miscarriage Disposition: Z ELOPED Is pt being admited?: No Does the pt Need Aspirin: No Condition: Stable Instructions: Spontaneous Miscarriage (ED) Referrals: PRIMARY CARE, [Primary Care Provider] - 3-5 Days RENUKA NICOLAS MD [Staff Physician] - 3-5 Days Forms: Work/School Release Form(ED) Time of Disposition: 15:51
[2016-09-14 16:01] VITALS: BP 128/88
== END 2016-09-14 17:09 | disposition left against medical advice (07) ==
LOC: ED 10:59
DX: N93.8 Other specified abnormal uterine and vaginal bleeding (principal); R10.9 Unspecified abdominal pain; Z88.2 Allergy status to sulfonamides
CPT/HCPCS: 36415; 76801; 76817; 80053; 84702; 85025; 85610; 85730

== ENCOUNTER 2017-03-19 15:59 | Emergency (ER) | payer MEDICAID, OTHER ==
[2017-03-19 16:44] LABS: Basophils % (Auto) 0.9 % (0.0-1.8); Eosinophils % (Auto) 1.7 % (0.0-4.3); Hematocrit 37.7 % (30.3-42.9); Hemoglobin 12.4 gm/dl (10.1-14.3); Mean Corpuscular HGB Conc 33 % (30-34); Mean Corpuscular Hemoglobin 30 pg (28-32); Mean Corpuscular Volume 91 fl (79-97); Platelet Count 285 K/mm3 (140-440); Red Blood Count 4.13 M/mm3 (3.65-5.03); Red Cell Distribution Width 13.3 % (13.2-15.2)
[2017-03-19 17:08] LABS: Anion Gap 20 mmol/L; BUN/Creatinine Ratio 17; Blood Urea Nitrogen 12 mg/dL (7-17); Carbon Dioxide 24 mmol/L (22-30); Chloride 99.5 mmol/L (98-107); Glucose 88 mg/dL (65-100); Potassium 4.1 mmol/L (3.6-5.0); Sodium 139 mmol/L (137-145)
[2017-03-19 19:01] LABS: Bacteria,Urine 1+ /HPF (Negative); Bilirubin,Urine NEG (Negative); Blood,Urine NEG (Negative); Ketones,Urine NEG (Negative); Leukocyte Esterase,Urine SM (Negative); Mucus,Urine 2+ /HPF; Nitrite,Urine NEG (Negative)
[2017-03-19 21:40] VITALS: BP 143/89
== END 2017-03-19 21:50 | disposition left against medical advice (07) ==
LOC: ED 15:59
DX: R42 Dizziness and giddiness (principal); Z53.21 Procedure and treatment not carried out due to patient leaving prior to being seen by health care provider
CPT/HCPCS: 36415; 80048; 81001; 85025; 93005; 93010

== ENCOUNTER 2017-08-22 08:28 | Emergency (ER) | payer MEDICAID, OTHER ==
[2017-08-22 08:35] VITALS: BP 164/88
--- NOTE | 2017-08-22 10:51 | Emergency Department Report ---
HPI - General Chief Complaint: Sore Throat Time Seen by Provider: 08/22/17 10:12 - HPI HPI: Patient is a 32-year-old female who presents to ED complaining of throat pain for the past 2 weeks. Patient states she's had this symptoms many times before. She states she has a symptoms about every month. Patient states that she's been tested for strep and every time causes are negative. Patient states sometimes the throat pain is worse than other times. She denies difficulty swallowing. She states mild discomfort with swallowing foods. She denies fevers/chills/nausea vomiting/abdominal pain/chest pain/sobreath ED Past Medical Hx - Past Medical History Previous Medical History?: Yes Hx Congestive Heart Failure: Yes (in 2006 related) Additional medical history: Vaginal delivery x 3, SORE THROAT - Surgical History Past Surgical History?: Yes Additional Surgical History: hernia repair x 2, endoscopy - Social History Smoking Status: Former Smoker Substance Use Type: Alcohol, Marijuana - Medications Home Medications: Home Medications Medication Instructions Recorded Confirmed Last Taken Type Acetaminophen/Codeine [Tylenol #3] 1 tab PO Q6H PRN #12 tab 09/07/16 Unknown Rx Ibuprofen [Motrin] 800 mg PO Q8HR PRN #30 tablet 08/22/17 Unknown Rx Nystas/Diphen/Xyl Visc/Mylanta 30 ml PO TID PRN #240 ml 08/22/17 Unknown Rx [Magic Mouthwash] ED Review of Systems ROS: Stated complaint: SORE THROAT Other details as noted in HPI Constitutional: denies: chills, fever Eyes: denies: eye pain, eye discharge, vision change ENT: denies: ear pain, throat pain Respiratory: denies: cough, shortness of breath, wheezing Cardiovascular: denies: chest pain, palpitations Endocrine: no symptoms reported Gastrointestinal: denies: abdominal pain, nausea, diarrhea Genitourinary: denies: urgency, dysuria, discharge Musculoskeletal: denies: back pain, joint swelling, arthralgia Skin: denies: rash, lesions Neurological: denies: headache, weakness, paresthesias Psychiatric: denies: anxiety, depression Hematological/Lymphatic: denies: easy bleeding, easy bruising Physical Exam - Physical Exam Vital Signs: Vital Signs 08/22/17 08:31 Temperature 98.9 F Pulse Rate 91 H Respiratory 20 Rate Blood Pressure 164/88 O2 Sat by Pulse 100 Oximetry Physical Exam: GENERAL: Alert and oriented x3, no apparent distress, Normal Gait, atraumatic. HEAD: Head is normocephalic and a-traumatic. EARS: symetrical, atraumatic, non tender, ear canal clear and moderate cerumen, tympanic membrance non inflamed. gross auditory nml bilaterally. MOUTH:Mouth is well hydrated and without lesions. Tonsils nonerythematous or swollen, Uvula midline, Tongue not elevated. Mucous membranes are moist. Posterior pharynx clear, exudate on bilateral tonsils, no lesions. Patent airways. NECK: Supple. Non edematous, No lymphadenopathy or thyromegaly. No C-spine tenderness LUNGS: Symetrical with respiration, No wheezing, no rales or crackles, CTAB. HEART: S1, S2 present, regular rate and rhythm without murmur, no rubs, no gallops. Non tender to palpation ABDOMEN: No organomegaly was noted,Positive bowel sounds, soft, and non- distended. . Nontender to palpation on all Quadrants, NO CVA tenderness. NEUROLOGIC: The patient is cooperative with no focal neurologic deficits. SKIN: Warm and dry, No lesions, No ulceration or induration present. ED Course Vital Signs 08/22/17 08:31 Temperature 98.9 F Pulse Rate 91 H Respiratory 20 Rate Blood Pressure 164/88 O2 Sat by Pulse 100 Oximetry ED Medical Decision Making - Lab Data Result diagrams: 08/22/17 11:02 08/22/17 11:02 - Medical Decision Making 32-year-old female presents with tonsillitis ED course: CBC, CMP, strep, mono test all collected ALL LABS WITHIN NORMAL LIMITS DISCUSSED THIS FINDINGS WITH THE PATIENT. DISCUSSED THE PATIENT SHE'LL NEED TO FOLLOW-UP WITH HER PRIMARY CARE PHYSICIAN OR ENT SPECIALIST DUE to recurrent tonsillitis. Vital signs are stable Patient is in no acute or respiratory distress. She understands all instructions given. Critical care attestation.: If time is entered above; I have spent that time in minutes in the direct care of this critically ill patient, excluding procedure time. ED Disposition Clinical Impression: Tonsillitis, chronic Disposition: DC-01 TO HOME OR SELFCARE Is pt being admited?: No Does the pt Need Aspirin: No Condition: Stable Instructions: Tonsillitis (ED) Additional Instructions: Make sure to follow up with the primary care physician as discussed. Take all your medications as you've been prescribed. If you have any worsening symptoms or develop new symptoms please return to ED immediately. Prescriptions: Ibuprofen [Motrin] 800 mg PO Q8HR PRN #30 tablet PRN Reason: Pain Nystas/Diphen/Xyl Visc/Mylanta [Magic Mouthwash] 30 ml PO TID PRN #240 ml PRN Reason: Pain Referrals: PRIMARY CARE, [Primary Care Provider] - 3-5 Days [facility] [Provider Group] - 3-5 Days [facility] [Provider Group] - 3-5 Days [facility] [Outside] - 3-5 Days [facility] [Outside] - 3-5 Days Forms: Work/School Release Form(ED) Time of Disposition: 13:49
[2017-08-22 11:38] LABS: Basophils % (Auto) 0.4 % (0.0-1.8); Eosinophils # (Auto) 0.1 K/mm3 (0.0-0.4); Eosinophils % (Auto) 1.6 % (0.0-4.3); Hematocrit 38.9 % (30.3-42.9); Hemoglobin 13.2 gm/dl (10.1-14.3); Lymphocytes # (Auto) 1.7 K/mm3 (1.2-5.4); Lymphocytes % (Auto) 28.5 % (13.4-35.0); Mean Corpuscular HGB Conc 34 % (30-34); Mean Corpuscular Hemoglobin 31 pg (28-32); Mean Corpuscular Volume 90 fl (79-97); Monocytes # (Auto) 0.6 K/mm3 (0.0-0.8); Monocytes % (Auto) 9.4 % (0.0-7.3); Platelet Count 259 K/mm3 (140-440); Red Cell Distribution Width 13.5 % (13.2-15.2)
[2017-08-22] MEDS ORDERED: DELTASONE PO ONE (12:26)
[2017-08-22] MEDS ORDERED: TYLENOL/CODEINE PO ONE (12:27)
[2017-08-22 12:47] LABS: Alanine Aminotransferase 27 units/L (7-56); Albumin 4.2 g/dL (3.9-5); BUN/Creatinine Ratio 15; Blood Urea Nitrogen 9 mg/dL (7-17); Hemolysis Index 14
== END 2017-08-22 13:59 | disposition home or self-care (01) ==
LOC: ED 08:28
DX: J35.01 Chronic tonsillitis (principal); I50.9 Heart failure, unspecified; Z87.891 Personal history of nicotine dependence
CPT/HCPCS: 36415; 80053; 85025; 86308; 87116; 87430; 99283; J7512

== ENCOUNTER 2017-12-20 20:32 | Emergency (ER) | payer SELFPAY ==
[2017-12-20 21:30] VITALS: BP 139/92
[2017-12-20] MEDS ORDERED: MOTRIN PO ONE (23:30)
[2017-12-20] MEDS ORDERED: LIDOCAINE VISCOUS 2% PO ONE (23:30)
[2017-12-20] MEDS ORDERED: MOTRIN ONE (23:33)
[2017-12-20] MEDS ORDERED: LIDOCAINE VISCOUS 2% ONE (23:33)
--- NOTE | 2017-12-21 03:07 | Emergency Department Report ---
ED ENT HPI - General Chief complaint: Sore Throat Stated complaint: SORE THROAT Source: patient Mode of arrival: Ambulatory Limitations: No Limitations - History of Present Illness Initial comments: 32-year-old Polish female presents to the emergency room for headache chills achy shoulder and sore throat 1 month. Patient reports frequent sore throats and strep since childhood. Use goes away but this one won't go away. She admits to runny nose nasal congestion headache sneezing postnasal drip. MD complaint: sore throat -: month(s) (1) Location: throat Severity scale (0 -10): 7 Consistency: intermittent Worsens with: swallowing Associated Symptoms: sore throat - Related Data Previous Rx's Medication Instructions Recorded Last Taken Type Acetaminophen/Codeine [Tylenol #3] 1 tab PO Q6H PRN #12 tab 09/07/16 Unknown Rx Ibuprofen [Motrin] 800 mg PO Q8HR PRN #30 tablet 08/22/17 Unknown Rx Nystas/Diphen/Xyl Visc/Mylanta 30 ml PO TID PRN #240 ml 08/22/17 Unknown Rx [Magic Mouthwash] Cephalexin [Keflex] 500 mg PO BID #20 capsule 12/21/17 Unknown Rx Dexchlorpheniram/Phenylephrine 1 each PO Q6H #16 tablet 12/21/17 Unknown Rx [Rymed Tablet] Fluticasone [Flonase] 1 spray NS QDAY #1 bottle 12/21/17 Unknown Rx Allergies Allergy/AdvReac Type Severity Reaction Status Date / Time Sulfa (Sulfonamide Allergy Unknown Verified 09/14/16 12:03 Antibiotics) ED Dental HPI - General Chief complaint: Sore Throat Stated complaint: SORE THROAT Source: patient Mode of arrival: Ambulatory Limitations: No Limitations - Related Data Previous Rx's Medication Instructions Recorded Last Taken Type Acetaminophen/Codeine [Tylenol #3] 1 tab PO Q6H PRN #12 tab 09/07/16 Unknown Rx Ibuprofen [Motrin] 800 mg PO Q8HR PRN #30 tablet 08/22/17 Unknown Rx Nystas/Diphen/Xyl Visc/Mylanta 30 ml PO TID PRN #240 ml 08/22/17 Unknown Rx [Magic Mouthwash] Cephalexin [Keflex] 500 mg PO BID #20 capsule 12/21/17 Unknown Rx Dexchlorpheniram/Phenylephrine 1 each PO Q6H #16 tablet 12/21/17 Unknown Rx [Rymed Tablet] Fluticasone [Flonase] 1 spray NS QDAY #1 bottle 12/21/17 Unknown Rx Allergies Allergy/AdvReac Type Severity Reaction Status Date / Time Sulfa (Sulfonamide Allergy Unknown Verified 09/14/16 12:03 Antibiotics) ED Review of Systems ROS: Stated complaint: SORE THROAT Other details as noted in HPI Constitutional: denies: chills, fever Eyes: denies: eye pain, eye discharge, vision change ENT: throat pain, congestion, other (rhinorrhea, sneezing) Respiratory: cough Cardiovascular: denies: chest pain, palpitations Endocrine: no symptoms reported Gastrointestinal: denies: abdominal pain, nausea, diarrhea Genitourinary: denies: urgency, dysuria, discharge Musculoskeletal: denies: back pain, joint swelling, arthralgia Skin: denies: rash, lesions Neurological: denies: headache, weakness, paresthesias Psychiatric: denies: anxiety, depression Hematological/Lymphatic: denies: easy bleeding, easy bruising ED Past Medical Hx - Past Medical History Previous Medical History?: Yes Hx Congestive Heart Failure: Yes (in 2006 related) Additional medical history: Vaginal delivery x 3, frequent/chronic SORE THROAT - Surgical History Past Surgical History?: Yes Additional Surgical History: hernia repair x 2, endoscopy 1992 - Social History Smoking Status: Never Smoker Substance Use Type: Alcohol - Medications Home Medications: Home Medications Medication Instructions Recorded Confirmed Last Taken Type Acetaminophen/Codeine [Tylenol #3] 1 tab PO Q6H PRN #12 tab 09/07/16 Unknown Rx Ibuprofen [Motrin] 800 mg PO Q8HR PRN #30 tablet 08/22/17 Unknown Rx Nystas/Diphen/Xyl Visc/Mylanta 30 ml PO TID PRN #240 ml 08/22/17 Unknown Rx [Magic Mouthwash] Cephalexin [Keflex] 500 mg PO BID #20 capsule 12/21/17 Unknown Rx Dexchlorpheniram/Phenylephrine 1 each PO Q6H #16 tablet 12/21/17 Unknown Rx [Rymed Tablet] Fluticasone [Flonase] 1 spray NS QDAY #1 bottle 12/21/17 Unknown Rx ED Physical Exam - General Limitations: No Limitations General appearance: alert, in no apparent distress - Head Head exam: Present: atraumatic, normocephalic - Eye Eye exam: Present: EOMI - ENT ENT exam: Present: mucous membranes moist - Expanded ENT Exam Expanded Throat exam: Positive: tonsillar erythema. Negative: tonsillar exudate - Neck Neck exam: Present: full ROM. Absent: tenderness, lymphadenopathy - Respiratory Respiratory exam: Present: normal lung sounds bilaterally. Absent: respiratory distress - Cardiovascular Cardiovascular Exam: Present: regular rate, normal rhythm. Absent: systolic murmur, diastolic murmur, rubs, gallop - Extremities Exam Extremities exam: Present: normal inspection - Neurological Exam Neurological exam: Present: alert, oriented X3 - Psychiatric Psychiatric exam: Present: normal affect, normal mood - Skin Skin exam: Present: warm, dry, intact, normal color. Absent: rash ED Course Vital Signs 12/20/17 21:22 Temperature 99.9 F H Pulse Rate 83 Respiratory 18 Rate Blood Pressure 139/92 O2 Sat by Pulse 99 Oximetry ED Medical Decision Making - Medical Decision Making Patient's been evaluated by this provider fast rate. Strep test negative. Patient was given pain medication for management of pain. Discussed the patient that her strep test was negative this is most likely due to allergic rhinitis with postnasal drip for irritation of her throat. Discharge patient on Ray med, Flonase and ibuprofen. Critical care attestation.: If time is entered above; I have spent that time in minutes in the direct care of this critically ill patient, excluding procedure time. ED Disposition Clinical Impression: Allergic rhinitis Qualifiers: Allergic rhinitis trigger: unspecified Allergic rhinitis seasonality: unspecified Qualified Code(s): J30.9 - Allergic rhinitis, unspecified Sinusitis, acute Qualifiers: Sinusitis location: unspecified location Recurrence: not specified as recurrent Qualified Code(s): J01.90 - Acute sinusitis, unspecified Disposition: DC- TO HOME OR SELFCARE Is pt being admited?: No Does the pt Need Aspirin: No Condition: Stable Instructions: Sinusitis (ED), Allergic Rhinitis (ED) Additional Instructions: Complete antibiotics as prescribed. Use nasal spray and antihistamine pills as prescribed. Please increase her water intake by 2 L while taking medication as this can dry you out. You can continue with Tylenol or Motrin for pain management. If her symptoms persist or gets worse please follow up with her primary care provider. Prescriptions: Cephalexin [Keflex] 500 mg PO BID #20 capsule Dexchlorpheniram/Phenylephrine [Rymed Tablet] 1 each PO Q6H #16 tablet Fluticasone [Flonase] 1 spray NS QDAY #1 bottle Referrals: PRIMARY CARE, [Primary Care Provider] - 3-5 Days Forms: Work/School Release Form(ED)
== END 2017-12-21 03:45 | disposition home or self-care (01) ==
LOC: ED 20:32
DX: J01.90 Acute sinusitis, unspecified (principal); J30.9 Allergic rhinitis, unspecified; I50.9 Heart failure, unspecified; Z88.2 Allergy status to sulfonamides
CPT/HCPCS: 87116; 87430; 99283

== ENCOUNTER 2017-12-24 05:56 | Emergency (ER) | payer SELFPAY ==
[2017-12-24 07:24] VITALS: BP 145/97
[2017-12-24] MEDS ORDERED: MOTRIN PO ONE (08:23)
[2017-12-24 08:47] LABS: Basophils % (Auto) 0.3 % (0.0-1.8); Eosinophils % (Auto) 0.1 % (0.0-4.3); Hematocrit 38.3 % (30.3-42.9); Hemoglobin 12.9 gm/dl (10.1-14.3); Lymphocytes # (Auto) 0.7 K/mm3 (1.2-5.4); Lymphocytes % (Auto) 9.4 % (13.4-35.0); Mean Corpuscular HGB Conc 34 % (30-34); Mean Corpuscular Hemoglobin 30 pg (28-32); Mean Corpuscular Volume 90 fl (79-97); Monocytes # (Auto) 0.5 K/mm3 (0.0-0.8); Monocytes % (Auto) 6.1 % (0.0-7.3); Platelet Count 290 K/mm3 (140-440); Red Blood Count 4.27 M/mm3 (3.65-5.03)
--- NOTE | 2017-12-24 10:53 | Emergency Department Report ---
Blank Doc - Documentation Documentation: Patient is a 32-year-old Female had recurrent pharyngitis. Patient was seen several days ago for sore throat had a strep test that was done that was negative. Patient was put on Keflex. Patient states that she feels like she is getting worse. Patient's been febrile at home. Outpatient several months ago had the same thing and tested negative for mono. [place] test was not done 3 days ago. Monotest will be added and the patient be reassessed. On focused physical exam patient does have exudative pharyngitis. Patient is able to speak in full sentences and does not appear to be in any distress
--- NOTE | 2017-12-24 11:34 | Emergency Department Report ---
ED ENT HPI - General Chief complaint: Sore Throat Stated complaint: CHEST PAIN,SORE THROAT Time Seen by Provider: 12/24/17 10:45 Source: patient Mode of arrival: Ambulatory Limitations: No Limitations - History of Present Illness Initial comments: This is a 32-year-old female nontoxic, well nourished in appearance, no acute signs of distress presents to the ED with c/o of acute on chronic intermittent sore throat x2 months. Patient stated that symptoms come and go. They stated that she was seen 3 days ago and has been prescribed Keflex with no relief. Patient also stated that she has some subjective fevers. Patient denies any drooling or hoarseness. Patient denies any cough. Patient denies any sick contacts. Patient denies any recent travels, long car, recent hospital stays. Patient denies any calf pain or calf tenderness. Patient denies any chest pain , short of breath, fever, chills, nausea, vomiting, hemoptysis, numbness, tingling, headache or stiff neck. Patient states allergies sulfa. Denies significant past medical history. MD complaint: sore throat -: month(s) (2) Location: throat Severity: moderate Severity scale (0 -10): 8 Quality: aching Consistency: constant Improves with: none Worsens with: swallowing Associated Symptoms: pain with swallowing, sore throat. denies: fever, cough, gum swelling, toothache, tinnitus, hearing loss, discharge from ear, rhinorrhea - Related Data Previous Rx's Medication Instructions Recorded Last Taken Type Acetaminophen/Codeine [Tylenol #3] 1 tab PO Q6H PRN #12 tab 09/07/16 Unknown Rx Ibuprofen [Motrin] 800 mg PO Q8HR PRN #30 tablet 08/22/17 Unknown Rx Nystas/Diphen/Xyl Visc/Mylanta 30 ml PO TID PRN #240 ml 08/22/17 Unknown Rx [Magic Mouthwash] Cephalexin [Keflex] 500 mg PO BID #20 capsule 12/21/17 Unknown Rx Dexchlorpheniram/Phenylephrine 1 each PO Q6H #16 tablet 12/21/17 Unknown Rx [Rymed Tablet] Fluticasone [Flonase] 1 spray NS QDAY #1 bottle 12/21/17 Unknown Rx Amoxicillin/K Clav Tab [Augmentin 1 tab PO Q12HR #20 tab 12/24/17 Unknown Rx 875 mg] Ibuprofen [Motrin] 600 mg PO Q8H PRN #30 tablet 12/24/17 Unknown Rx Nystas/Diphen/Xyl Visc/Mylanta 30 ml MM TID PRN 5 Days ml 12/24/17 Unknown Rx [Magic Mouthwash] Allergies Allergy/AdvReac Type Severity Reaction Status Date / Time Sulfa (Sulfonamide Allergy Unknown Verified 09/14/16 12:03 Antibiotics) ED Dental HPI - General Chief complaint: Sore Throat Stated complaint: CHEST PAIN,SORE THROAT Time Seen by Provider: 12/24/17 10:45 Source: patient Mode of arrival: Ambulatory Limitations: No Limitations - Related Data Previous Rx's Medication Instructions Recorded Last Taken Type Acetaminophen/Codeine [Tylenol #3] 1 tab PO Q6H PRN #12 tab 09/07/16 Unknown Rx Ibuprofen [Motrin] 800 mg PO Q8HR PRN #30 tablet 08/22/17 Unknown Rx Nystas/Diphen/Xyl Visc/Mylanta 30 ml PO TID PRN #240 ml 08/22/17 Unknown Rx [Magic Mouthwash] Cephalexin [Keflex] 500 mg PO BID #20 capsule 12/21/17 Unknown Rx Dexchlorpheniram/Phenylephrine 1 each PO Q6H #16 tablet 12/21/17 Unknown Rx [Rymed Tablet] Fluticasone [Flonase] 1 spray NS QDAY #1 bottle 12/21/17 Unknown Rx Amoxicillin/K Clav Tab [Augmentin 1 tab PO Q12HR #20 tab 12/24/17 Unknown Rx 875 mg] Ibuprofen [Motrin] 600 mg PO Q8H PRN #30 tablet 12/24/17 Unknown Rx Nystas/Diphen/Xyl Visc/Mylanta 30 ml MM TID PRN 5 Days ml 12/24/17 Unknown Rx [Magic Mouthwash] Allergies Allergy/AdvReac Type Severity Reaction Status Date / Time Sulfa (Sulfonamide Allergy Unknown Verified 09/14/16 12:03 Antibiotics) ED Review of Systems ROS: Stated complaint: CHEST PAIN,SORE THROAT Other details as noted in HPI Constitutional: denies: chills, fever Eyes: denies: eye pain, eye discharge, vision change ENT: throat pain. denies: ear pain Respiratory: denies: cough, shortness of breath, wheezing Cardiovascular: denies: chest pain, palpitations Endocrine: no symptoms reported Gastrointestinal: denies: abdominal pain, nausea, diarrhea Genitourinary: denies: urgency, dysuria, discharge Musculoskeletal: denies: back pain, joint swelling, arthralgia Skin: denies: rash, lesions Neurological: denies: headache, weakness, paresthesias Psychiatric: denies: anxiety, depression Hematological/Lymphatic: denies: easy bleeding, easy bruising ED Past Medical Hx - Past Medical History Hx Congestive Heart Failure: Yes (in 2006 related) Additional medical history: Vaginal delivery x 3, frequent/chronic SORE THROAT - Surgical History Additional Surgical History: hernia repair x 2, endoscopy 1992 - Social History Smoking Status: Never Smoker Substance Use Type: Alcohol - Medications Home Medications: Home Medications Medication Instructions Recorded Confirmed Last Taken Type Acetaminophen/Codeine [Tylenol #3] 1 tab PO Q6H PRN #12 tab 09/07/16 Unknown Rx Ibuprofen [Motrin] 800 mg PO Q8HR PRN #30 tablet 08/22/17 Unknown Rx Nystas/Diphen/Xyl Visc/Mylanta 30 ml PO TID PRN #240 ml 08/22/17 Unknown Rx [Magic Mouthwash] Cephalexin [Keflex] 500 mg PO BID #20 capsule 12/21/17 Unknown Rx Dexchlorpheniram/Phenylephrine 1 each PO Q6H #16 tablet 12/21/17 Unknown Rx [Rymed Tablet] Fluticasone [Flonase] 1 spray NS QDAY #1 bottle 12/21/17 Unknown Rx Amoxicillin/K Clav Tab [Augmentin 1 tab PO Q12HR #20 tab 12/24/17 Unknown Rx 875 mg] Ibuprofen [Motrin] 600 mg PO Q8H PRN #30 tablet 12/24/17 Unknown Rx Nystas/Diphen/Xyl Visc/Mylanta 30 ml MM TID PRN 5 Days ml 12/24/17 Unknown Rx [Magic Mouthwash] ED Physical Exam - General Limitations: No Limitations General appearance: alert, in no apparent distress - Head Head exam: Present: atraumatic, normocephalic - Eye Eye exam: Present: normal appearance Pupils: Present: normal accommodation - ENT ENT exam: Present: mucous membranes moist - Expanded ENT Exam Expanded Ear exam: Present: normal external inspection Mouth exam: Present: normal external inspection, tongue normal. Absent: drooling, trismus, muffled voice, tongue elevation, laceration Teeth exam: Present: normal inspection Throat exam: Positive: tonsillar erythema, tonsillomegaly (2+), tonsillar exudate, other (Uvula midline). Negative: R peritonsillar mass, L peritonsillar mass - Neck Neck exam: Present: normal inspection, full ROM, lymphadenopathy (bilateral tonsillar). Absent: tenderness, meningismus - Respiratory Respiratory exam: Present: normal lung sounds bilaterally. Absent: respiratory distress, wheezes, rales, rhonchi, stridor, chest wall tenderness, accessory muscle use, decreased breath sounds, prolonged expiratory - Cardiovascular Cardiovascular Exam: Present: regular rate, normal rhythm, normal heart sounds. Absent: bradycardia, tachycardia, irregular rhythm, systolic murmur, diastolic murmur, rubs, gallop - GI/Abdominal GI/Abdominal exam: Present: soft, normal bowel sounds - Extremities Exam Extremities exam: Present: normal inspection, full ROM, normal capillary refill - Back Exam Back exam: Present: normal inspection, full ROM - Neurological Exam Neurological exam: Present: alert, oriented X3, normal gait - Psychiatric Psychiatric exam: Present: normal affect, normal mood - Skin Skin exam: Present: warm, dry, intact, normal color. Absent: rash ED Course Vital Signs 12/24/17 12/24/17 07:21 08:30 Temperature 102.1 F H Pulse Rate 83 Respiratory 18 18 Rate Blood Pressure 145/97 O2 Sat by Pulse 100 Oximetry - Reevaluation(s) Reevaluation #1: 12/24/17 11:37 Patient is speaking in full sentences with no signs of distress noted. - Consultations Consultation #1: 12/24/17 11:37 Patient has been consulted with Dr. Ford about patient history, physical exam , and labs and examined and screened patient and agrees to ED plan of care and discharge plan of care. ED Medical Decision Making - Lab Data Result diagrams: 12/24/17 08:30 - Medical Decision Making This is a 32-year-old female that presents with tonsillitis with exudate. Patient is stable was examined by me and Dr. Ford. Patient has a negative strep in the previous visit. There is no drooling. No tonsillar abscess noted. Uvula is midline. Labs unremarkable. Negative [place] test. Patient stated has had a PCN G shot with no relief. Patient was instructed to to discontinue Keflex and I will treat patient with Augmentin. Vital signs are stable. Patient is not febrile and normal heart rate. Patient was instructed to Follow- up with a ENT doctor in 2-3 days or if symptoms worsen and continue return to emergency room as soon as possible. At time of discharge, the patient does not seem toxic or ill in appearance. No acute signs of distress noted. Patient agrees to discharge treatment plan of care. No further questions noted by the patient. Critical care attestation.: If time is entered above; I have spent that time in minutes in the direct care of this critically ill patient, excluding procedure time. ED Disposition Clinical Impression: Exudative tonsillitis Disposition: TO HOME OR SELFCARE Is pt being admited?: No Does the pt Need Aspirin: No Condition: Stable Instructions: Tonsillitis (ED) Additional Instructions: Follow-up with a ENT doctor in 2-3 days or if symptoms worsen and continue return to emergency room as soon as possible. Increase hydration, rest and take Motrin/Tylenol very few episodes. Prescriptions: Amoxicillin/K Clav Tab [Augmentin 875 mg] 1 tab PO Q12HR #20 tab Ibuprofen [Motrin] 600 mg PO Q8H PRN #30 tablet PRN Reason: Pain/FEver Nystas/Diphen/Xyl Visc/Mylanta [Magic Mouthwash] 30 ml MM TID PRN 5 Days ml PRN Reason: Sore Throat Referrals: PRIMARY MD ADRIANE [Primary Care Provider] - 3-5 Days [facility] [Outside] - 3-5 Days SHOAIB WOOD MD [Staff Physician] - 2-3 Days Forms: Work/School Release Form(ED)
== END 2017-12-24 12:08 | disposition home or self-care (01) ==
LOC: ED 05:56
DX: J03.90 Acute tonsillitis, unspecified (principal); Z88.2 Allergy status to sulfonamides; I50.9 Heart failure, unspecified
CPT/HCPCS: 36415; 85025; 86308; 93005; 93010; 99283

== ENCOUNTER 2019-02-07 19:28 | Emergency (ER) | payer SELFPAY ==
[2019-02-07 19:46] VITALS: BP 157/78
--- NOTE | 2019-02-07 19:47 | Emergency Department Report ---
ED ENT HPI - General Chief complaint: Sore Throat Stated complaint: SORE THROAT Time Seen by Provider: 02/07/19 19:42 Source: patient Mode of arrival: Ambulatory Limitations: No Limitations - History of Present Illness Initial comments: This is a 33-year-old female nontoxic well in appearance with no signs of distress presents to the ED with complaint of sore throat. Patient denies any drooling or hoarseness. Patient denies any other symptoms. Denies any fever, chills, headache, nausea, vomiting, chest pain or SOB. Denies any other complaints. Patient stated allergies to Bactrim. MD complaint: sore throat -: days(s) (4) Location: throat Severity: mild Severity scale (0 -10): 8 Quality: aching Consistency: constant Improves with: none Worsens with: swallowing Associated Symptoms: pain with swallowing, sore throat. denies: fever, cough, gum swelling, toothache, tinnitus, hearing loss, discharge from ear, rhinorrhea - Related Data Previous Rx's Medication Instructions Recorded Last Taken Type Acetaminophen/Codeine [Tylenol #3] 1 tab PO Q6H PRN #12 tab 09/07/16 Unknown Rx Ibuprofen [Motrin] 800 mg PO Q8HR PRN #30 tablet 08/22/17 Unknown Rx Nystas/Diphen/Xyl Visc/Mylanta 30 ml PO TID PRN #240 ml 08/22/17 Unknown Rx [Magic Mouthwash] Cephalexin [Keflex] 500 mg PO BID #20 capsule 12/21/17 Unknown Rx Dexchlorpheniram/Phenylephrine 1 each PO Q6H #16 tablet 12/21/17 Unknown Rx [Rymed Tablet] Fluticasone [Flonase] 1 spray NS QDAY #1 bottle 12/21/17 Unknown Rx Amoxicillin/K Clav Tab [Augmentin 1 tab PO Q12HR #20 tab 12/24/17 Unknown Rx 875 mg] Ibuprofen [Motrin] 600 mg PO Q8H PRN #30 tablet 12/24/17 Unknown Rx Nystas/Diphen/Xyl Visc/Mylanta 30 ml MM TID PRN 5 Days ml 12/24/17 Unknown Rx [Magic Mouthwash] Ibuprofen [Motrin] 800 mg PO Q8HR PRN #20 tablet 08/16/18 Unknown Rx Lidocaine Viscous 2% 15 ml PO Q6H PRN #120 ml 08/16/18 Unknown Rx Penicillin V Potassium 500 mg PO Q6H #40 tablet 08/16/18 Unknown Rx methylPREDNISolone [Medrol] 4 mg PO DAILY #21 tab.ds.pk 08/16/18 Unknown Rx Amoxicillin [Amoxicillin TAB] 875 mg PO BID #20 tablet 02/07/19 Unknown Rx Ibuprofen [Motrin] 600 mg PO Q8H PRN #20 tablet 02/07/19 Unknown Rx Nystas/Diphen/Xyl Visc/Mylanta 15 ml MM Q6H PRN 5 Days ml 02/07/19 Unknown Rx [Magic Mouthwash] Allergies Allergy/AdvReac Type Severity Reaction Status Date / Time Sulfa (Sulfonamide Allergy Unknown Verified 08/16/18 16:41 Antibiotics) ED Dental HPI - General Chief complaint: Sore Throat Stated complaint: SORE THROAT Time Seen by Provider: 02/07/19 19:42 Source: patient Mode of arrival: Ambulatory Limitations: No Limitations - Related Data Previous Rx's Medication Instructions Recorded Last Taken Type Acetaminophen/Codeine [Tylenol #3] 1 tab PO Q6H PRN #12 tab 09/07/16 Unknown Rx Ibuprofen [Motrin] 800 mg PO Q8HR PRN #30 tablet 08/22/17 Unknown Rx Nystas/Diphen/Xyl Visc/Mylanta 30 ml PO TID PRN #240 ml 08/22/17 Unknown Rx [Magic Mouthwash] Cephalexin [Keflex] 500 mg PO BID #20 capsule 12/21/17 Unknown Rx Dexchlorpheniram/Phenylephrine 1 each PO Q6H #16 tablet 12/21/17 Unknown Rx [Rymed Tablet] Fluticasone [Flonase] 1 spray NS QDAY #1 bottle 12/21/17 Unknown Rx Amoxicillin/K Clav Tab [Augmentin 1 tab PO Q12HR #20 tab 12/24/17 Unknown Rx 875 mg] Ibuprofen [Motrin] 600 mg PO Q8H PRN #30 tablet 12/24/17 Unknown Rx Nystas/Diphen/Xyl Visc/Mylanta 30 ml MM TID PRN 5 Days ml 12/24/17 Unknown Rx [Magic Mouthwash] Ibuprofen [Motrin] 800 mg PO Q8HR PRN #20 tablet 08/16/18 Unknown Rx Lidocaine Viscous 2% 15 ml PO Q6H PRN #120 ml 08/16/18 Unknown Rx Penicillin V Potassium 500 mg PO Q6H #40 tablet 08/16/18 Unknown Rx methylPREDNISolone [Medrol] 4 mg PO DAILY #21 tab.ds.pk 08/16/18 Unknown Rx Amoxicillin [Amoxicillin TAB] 875 mg PO BID #20 tablet 02/07/19 Unknown Rx Ibuprofen [Motrin] 600 mg PO Q8H PRN #20 tablet 02/07/19 Unknown Rx Nystas/Diphen/Xyl Visc/Mylanta 15 ml MM Q6H PRN 5 Days ml 02/07/19 Unknown Rx [Magic Mouthwash] Allergies Allergy/AdvReac Type Severity Reaction Status Date / Time Sulfa (Sulfonamide Allergy Unknown Verified 08/16/18 16:41 Antibiotics) ED Review of Systems ROS: Stated complaint: SORE THROAT Other details as noted in HPI Constitutional: denies: chills, fever Eyes: denies: eye pain, eye discharge, vision change ENT: throat pain. denies: ear pain Respiratory: denies: cough, shortness of breath, wheezing Cardiovascular: denies: chest pain, palpitations Endocrine: no symptoms reported Gastrointestinal: denies: abdominal pain, nausea, diarrhea Genitourinary: denies: urgency, dysuria, discharge Musculoskeletal: denies: back pain, joint swelling, arthralgia Skin: denies: rash, lesions Neurological: denies: headache, weakness, paresthesias Psychiatric: denies: anxiety, depression Hematological/Lymphatic: denies: easy bleeding, easy bruising ED Past Medical Hx - Past Medical History Hx Congestive Heart Failure: Yes (in 2005 related 13 YRS AGO) Additional medical history: Vaginal delivery x 3, frequent/chronic SORE THROAT - Surgical History Additional Surgical History: hernia repair x 2, endoscopy 1992 - Social History Smoking Status: Never Smoker Substance Use Type: None - Medications Home Medications: Home Medications Medication Instructions Recorded Confirmed Last Taken Type Acetaminophen/Codeine [Tylenol #3] 1 tab PO Q6H PRN #12 tab 09/07/16 Unknown Rx Ibuprofen [Motrin] 800 mg PO Q8HR PRN #30 tablet 08/22/17 Unknown Rx Nystas/Diphen/Xyl Visc/Mylanta 30 ml PO TID PRN #240 ml 08/22/17 Unknown Rx [Magic Mouthwash] Cephalexin [Keflex] 500 mg PO BID #20 capsule 12/21/17 Unknown Rx Dexchlorpheniram/Phenylephrine 1 each PO Q6H #16 tablet 12/21/17 Unknown Rx [Rymed Tablet] Fluticasone [Flonase] 1 spray NS QDAY #1 bottle 12/21/17 Unknown Rx Amoxicillin/K Clav Tab [Augmentin 1 tab PO Q12HR #20 tab 12/24/17 Unknown Rx 875 mg] Ibuprofen [Motrin] 600 mg PO Q8H PRN #30 tablet 12/24/17 Unknown Rx Nystas/Diphen/Xyl Visc/Mylanta 30 ml MM TID PRN 5 Days ml 12/24/17 Unknown Rx [Magic Mouthwash] Ibuprofen [Motrin] 800 mg PO Q8HR PRN #20 tablet 08/16/18 Unknown Rx Lidocaine Viscous 2% 15 ml PO Q6H PRN #120 ml 08/16/18 Unknown Rx Penicillin V Potassium 500 mg PO Q6H #40 tablet 08/16/18 Unknown Rx methylPREDNISolone [Medrol] 4 mg PO DAILY #21 tab.ds.pk 08/16/18 Unknown Rx Amoxicillin [Amoxicillin TAB] 875 mg PO BID #20 tablet 02/07/19 Unknown Rx Ibuprofen [Motrin] 600 mg PO Q8H PRN #20 tablet 02/07/19 Unknown Rx Nystas/Diphen/Xyl Visc/Mylanta 15 ml MM Q6H PRN 5 Days ml 02/07/19 Unknown Rx [Magic Mouthwash] ED Physical Exam - General Limitations: No Limitations General appearance: alert, in no apparent distress - Head Head exam: Present: atraumatic, normocephalic - Expanded ENT Exam Expanded Ear exam: Present: normal external inspection Mouth exam: Present: normal external inspection. Absent: drooling, trismus, muffled voice Teeth exam: Present: normal inspection Throat exam: Positive: tonsillar erythema. Negative: tonsillomegaly, tonsillar exudate, R peritonsillar mass, L peritonsillar mass - Neck Neck exam: Present: normal inspection, full ROM. Absent: tenderness, meningismus, lymphadenopathy - Extremities Exam Extremities exam: Present: normal inspection, full ROM - Back Exam Back exam: Present: normal inspection, full ROM - Neurological Exam Neurological exam: Present: alert, oriented X3, normal gait - Psychiatric Psychiatric exam: Present: normal affect, normal mood - Skin Skin exam: Present: warm, dry, intact, normal color. Absent: rash ED Course - Reevaluation(s) Reevaluation #1: 02/07/19 19:44 Patient is speaking in full sentences with no signs of distress noted. ED Medical Decision Making - Medical Decision Making Patient was instructed to Follow-up with a primary care doctor in 3-5 days or if symptoms worsen and continue return to emergency room as soon as possible. At time of discharge, the patient does not seem toxic or ill in appearance. No acute signs of distress noted. Patient agrees to discharge treatment plan of care. No further questions noted by the patient. Critical care attestation.: If time is entered above; I have spent that time in minutes in the direct care of this critically ill patient, excluding procedure time. ED Disposition Clinical Impression: Pharyngitis Qualifiers: Pharyngitis/tonsillitis etiology: unspecified etiology Qualified Code(s): J02.9 - Acute pharyngitis, unspecified Disposition: TO HOME OR SELFCARE Is pt being admited?: No Does the pt Need Aspirin: No Condition: Stable Instructions: Pharyngitis (ED) Additional Instructions: Follow-up with a primary care doctor in 3-5 days or if symptoms worsen and continue return to emergency room as soon as possible. Prescriptions: Amoxicillin [Amoxicillin TAB] 875 mg PO BID #20 tablet Nystas/Diphen/Xyl Visc/Mylanta [Magic Mouthwash] 15 ml MM Q6H PRN 5 Days ml PRN Reason: Sore Throat Ibuprofen [Motrin] 600 mg PO Q8H PRN #20 tablet PRN Reason: Pain Referrals: PRIMARY MD ADRIANE [Referring] - 3-5 Days PATTIE PETERSON MD [Staff Physician] - 3-5 Days [facility] [Outside] - 3-5 Days [facility] [Outside] - 3-5 Days Forms: Work/School Release Form(ED)
== END 2019-02-07 20:11 | disposition home or self-care (01) ==
LOC: ED 19:28
DX: J02.9 Acute pharyngitis, unspecified (principal)
CPT/HCPCS: 99282

== ENCOUNTER 2019-02-10 16:28 | Emergency (ER) | payer SELFPAY ==
[2019-02-10] MEDS ORDERED: PENICILLIN G BENZATHINE 1.2 MILLION UNIT/2 ML INJ IM ONE (18:40)
[2019-02-10] MEDS ORDERED: KETOROLAC 30 MG/1 ML INJ IM ONE (18:40)
[2019-02-10] MEDS ORDERED: dexAMETHasone 20 MG/5 ML VIAL IM ONE (18:40)
[2019-02-10] MEDS ORDERED: HYDROcodone/ACETAMINOPHEN 5-325 MG TAB PO ONE (18:40)
[2019-02-10] MEDS ORDERED: LIDOCAINE VISCOUS 2% 15 ML ORAL LIQD PO ONE (18:40)
[2019-02-10] MEDS ORDERED: ONDANSETRON 4 MG ODT TAB PO ONE (18:41)
--- NOTE | 2019-02-10 19:21 | Emergency Department Report ---
ED General Adult HPI - General Chief complaint: Sore Throat Stated complaint: SORE THROAT Source: patient Mode of arrival: Ambulatory Limitations: No Limitations - History of Present Illness Initial comments: Patient is a 33-year-old -[place] female with a history of chronic recurrent streptococcal pharyngitis who presents to the ED with complaint of acute onset persistent severe sore throat with dysphagia, swollen tonsils with white thick exudates for the last 1 week worse in the last 2 days. Patient states that she was initially treated for the same about 3 days ago in this ED and states that symptoms are worsened despite taking antibiotics and pain medication. Patient denies fever, chills, nausea, vomiting, chest pain, shortness of breath, cough, headache, dizziness, abdominal pain or change in vision. MD Complaint: Recurrent sore throat -: Sudden, week(s) (1) Location: mouth Radiation: non-radiation Severity scale (0 -10): 10 Quality: burning, aching, sharp Consistency: constant Worsens with: eating Associated Symptoms: denies other symptoms, fever/chills, loss of appetite. denies: confusion, chest pain, cough, diaphoresis, headaches, malaise, nausea/vomiting, seizure, shortness of breath, syncope, weakness, other Treatments Prior to Arrival: NSAID - Related Data Previous Rx's Medication Instructions Recorded Last Taken Type Acetaminophen/Codeine [Tylenol #3] 1 tab PO Q6H PRN #12 tab 09/07/16 Unknown Rx Nystas/Diphen/Xyl Visc/Mylanta 30 ml PO TID PRN #240 ml 08/22/17 Unknown Rx [Magic Mouthwash] Cephalexin [Keflex] 500 mg PO BID #20 capsule 12/21/17 Unknown Rx Dexchlorpheniram/Phenylephrine 1 each PO Q6H #16 tablet 12/21/17 Unknown Rx [Rymed Tablet] Fluticasone [Flonase] 1 spray NS QDAY #1 bottle 12/21/17 Unknown Rx Amoxicillin/K Clav Tab [Augmentin 1 tab PO Q12HR #20 tab 12/24/17 Unknown Rx 875 mg] Ibuprofen [Motrin] 600 mg PO Q8H PRN #30 tablet 12/24/17 Unknown Rx Nystas/Diphen/Xyl Visc/Mylanta 30 ml MM TID PRN 5 Days ml 09/16/18 Unknown Rx [Magic Mouthwash] Ibuprofen [Motrin] 800 mg PO Q8HR PRN #20 tablet 08/16/18 Unknown Rx Penicillin V Potassium 500 mg PO Q6H #40 tablet 08/16/18 Unknown Rx methylPREDNISolone [Medrol] 4 mg PO DAILY #21 tab.ds.pk 08/16/18 Unknown Rx Amoxicillin [Amoxicillin TAB] 875 mg PO BID #20 tablet 02/07/19 Unknown Rx Ibuprofen [Motrin] 600 mg PO Q8H PRN #20 tablet 02/07/19 Unknown Rx Nystas/Diphen/Xyl Visc/Mylanta 15 ml MM Q6H PRN 5 Days ml 02/07/19 Unknown Rx [Magic Mouthwash] Clindamycin [Clindamycin CAP] 300 mg PO Q8HR #60 capsule 02/10/19 Unknown Rx Ibuprofen [Motrin 800 MG tab] 800 mg PO Q8HR PRN #30 tablet 02/10/19 Unknown Rx Lidocaine Viscous 2% 10 ml PO Q6H PRN #120 ml 02/10/19 Unknown Rx Prednisone [predniSONE 10 mg 10 mg PO .TAPER #21 tab.ds.pk 02/10/19 Unknown Rx (6-Day Pack, 21 Tabs)] Allergies Allergy/AdvReac Type Severity Reaction Status Date / Time Sulfa (Sulfonamide Allergy Unknown Verified 02/10/19 16:34 Antibiotics) ED Review of Systems ROS: Stated complaint: SORE THROAT Other details as noted in HPI Constitutional: denies: chills, fever, malaise Eyes: denies: eye pain, eye discharge, vision change ENT: throat pain, congestion. denies: ear pain Respiratory: denies: cough, shortness of breath, wheezing Cardiovascular: denies: chest pain, palpitations Endocrine: no symptoms reported Gastrointestinal: denies: abdominal pain, nausea, diarrhea Genitourinary: denies: urgency, dysuria, discharge Musculoskeletal: denies: back pain, joint swelling, arthralgia Skin: denies: rash, lesions Neurological: denies: headache, weakness, paresthesias Psychiatric: denies: anxiety, depression Hematological/Lymphatic: denies: easy bleeding, easy bruising ED Past Medical Hx - Past Medical History Hx Congestive Heart Failure: Yes (in 2005 related 13 YRS AGO) Additional medical history: Vaginal delivery x 3, frequent/chronic SORE THROAT - Surgical History Additional Surgical History: hernia repair x 2, endoscopy 1992 - Social History Smoking Status: Current Every Day Smoker Substance Use Type: None - Medications Home Medications: Home Medications Medication Instructions Recorded Confirmed Last Taken Type Acetaminophen/Codeine [Tylenol #3] 1 tab PO Q6H PRN #12 tab 09/07/16 Unknown Rx Nystas/Diphen/Xyl Visc/Mylanta 30 ml PO TID PRN #240 ml 08/22/17 Unknown Rx [Magic Mouthwash] Cephalexin [Keflex] 500 mg PO BID #20 capsule 12/21/17 Unknown Rx Dexchlorpheniram/Phenylephrine 1 each PO Q6H #16 tablet 12/21/17 Unknown Rx [Rymed Tablet] Fluticasone [Flonase] 1 spray NS QDAY #1 bottle 12/21/17 Unknown Rx Amoxicillin/K Clav Tab [Augmentin 1 tab PO Q12HR #20 tab 12/24/17 Unknown Rx 875 mg] Ibuprofen [Motrin] 600 mg PO Q8H PRN #30 tablet 12/24/17 Unknown Rx Nystas/Diphen/Xyl Visc/Mylanta 30 ml MM TID PRN 5 Days ml 12/24/17 Unknown Rx [Magic Mouthwash] Ibuprofen [Motrin] 800 mg PO Q8HR PRN #20 tablet 08/16/18 Unknown Rx Penicillin V Potassium 500 mg PO Q6H #40 tablet 08/16/18 Unknown Rx methylPREDNISolone [Medrol] 4 mg PO DAILY #21 tab.ds.pk 08/16/18 Unknown Rx Amoxicillin [Amoxicillin TAB] 875 mg PO BID #20 tablet 02/07/19 Unknown Rx Ibuprofen [Motrin] 600 mg PO Q8H PRN #20 tablet 02/07/19 Unknown Rx Nystas/Diphen/Xyl Visc/Mylanta 15 ml MM Q6H PRN 5 Days ml 02/07/19 Unknown Rx [Magic Mouthwash] Clindamycin [Clindamycin CAP] 300 mg PO Q8HR #60 capsule 02/10/19 Unknown Rx Ibuprofen [Motrin 800 MG tab] 800 mg PO Q8HR PRN #30 tablet 02/10/19 Unknown Rx Lidocaine Viscous 2% 10 ml PO Q6H PRN #120 ml 02/10/19 Unknown Rx Prednisone [predniSONE 10 mg 10 mg PO .TAPER #21 tab.ds.pk 02/10/19 Unknown Rx (6-Day Pack, 21 Tabs)] ED Physical Exam - General Limitations: No Limitations General appearance: alert, in no apparent distress - Head Head exam: Present: atraumatic, normocephalic, normal inspection - Eye Eye exam: Present: normal appearance, PERRL, EOMI Pupils: Present: normal accommodation - ENT ENT exam: Present: mucous membranes moist, TM's normal bilaterally, normal external ear exam, other (erythematous swelling oropharynx and tonsils with thick white exudates) - Neck Neck exam: Present: normal inspection, full ROM, lymphadenopathy - Respiratory Respiratory exam: Present: normal lung sounds bilaterally. Absent: respiratory distress, wheezes, stridor, chest wall tenderness, decreased breath sounds, prolonged expiratory - Cardiovascular Cardiovascular Exam: Present: normal rhythm, bradycardia, normal heart sounds. Absent: systolic murmur, diastolic murmur, rubs, gallop - GI/Abdominal GI/Abdominal exam: Present: soft, normal bowel sounds. Absent: tenderness, guarding, hyperactive bowel sounds, organomegaly - Extremities Exam Extremities exam: Present: normal inspection, full ROM, normal capillary refill - Back Exam Back exam: Present: normal inspection. Absent: muscle spasm, paraspinal tenderness - Neurological Exam Neurological exam: Present: alert, oriented X3, CN II-XII intact, normal gait, reflexes normal - Psychiatric Psychiatric exam: Present: normal affect, normal mood - Skin Skin exam: Present: warm, dry, intact, normal color. Absent: rash ED Course Vital Signs 02/10/19 17:36 Temperature 98.6 F Pulse Rate 56 L Respiratory 18 Rate Blood Pressure 147/84 O2 Sat by Pulse 100 Oximetry - Reevaluation(s) Reevaluation #1: 02/10/19 19:21 This is a 33-year-old female with a history of recurrent streptococcal pharyngitis and tonsillitis who presents to the ED with worsening sore throat for one week. In the ED, patient is alert and oriented 3 and is not in any distress with normal vital signs. Patient was treated for pain and also given Bicillin L a 1.2 million units intramuscular injection, also given Decadron and pain medications. On reevaluation, patient's pain is well controlled with medications. Patient will discharge home and given a referral to the ENT physician business relations manager for follow-up. Patient stated that she already has an ENT physician that she will be following up with. Patient was advised to return to the ED immediately if symptoms get worse. ED Medical Decision Making - Medical Decision Making This is a 33-year-old female with a history of recurrent streptococcal pharyngitis and tonsillitis who presents to the ED with worsening sore throat for one week. In the ED, patient is alert and oriented 3 and is not in any distress with normal vital signs. Patient was treated for pain and also given Bicillin L a 1.2 million units intramuscular injection, also given Decadron and pain medications. On reevaluation, patient's pain is well controlled with medications. Patient will discharge home and given a referral to the ENT physician business relations manager for follow-up. Patient stated that she already has an ENT physician that she will be following up with. Patient was advised to return to the ED immediately if symptoms get worse. - Differential Diagnosis strep pharyngitis; tonsillitis; Mononucleosis; Peritonsillar abscess Critical care attestation.: If time is entered above; I have spent that time in minutes in the direct care of this critically ill patient, excluding procedure time. ED Disposition Clinical Impression: Acute bacterial tonsillitis, Acute bacterial pharyngitis Disposition: - TO HOME OR SELFCARE Is pt being admited?: No Does the pt Need Aspirin: No Condition: Stable Instructions: Pharyngitis (ED), Strep Throat (ED), Tonsillitis (ED) Additional Instructions: Take medications with food, drink plenty of fluids and follow-up with your primary care physician in 5-7 days for reevaluation. Return to the ED immediately if symptoms get worse. Ensure that he follow-up with the ENT physician or fear choice in the next 7-10 days for reevaluation. Prescriptions: Clindamycin [Clindamycin CAP] 300 mg PO Q8HR #60 capsule Lidocaine Viscous 2% 10 ml PO Q6H PRN #120 ml PRN Reason: Pain , Severe (7-10) Ibuprofen [Motrin 800 MG tab] 800 mg PO Q8HR PRN #30 tablet PRN Reason: Pain Prednisone [predniSONE 10 mg (6-Day Pack, 21 Tabs)] 10 mg PO .TAPER #21 tab.ds.pk Referrals: SHOAIB WOOD MD [Staff Physician] - 7-10 days Time of Disposition: 19:25 Print Language: DIVEHI
[2019-02-10 20:29] VITALS: BP 141/80
== END 2019-02-10 20:25 | disposition home or self-care (01) ==
LOC: ED 16:28
DX: J03.90 Acute tonsillitis, unspecified (principal); F17.200 Nicotine dependence, unspecified, uncomplicated; Z79.899 Other long term (current) drug therapy; Z88.2 Allergy status to sulfonamides
CPT/HCPCS: 96372; 99282; J0561; J1100; J1885; Q0162

== ENCOUNTER 2019-02-28 20:22 | Emergency (ER) | payer SELFPAY ==
[2019-02-28 21:11] VITALS: BP 134/87
--- NOTE | 2019-02-28 22:09 | Event Note ---
ED Screening Note Date of service: 02/28/19 Time: 22:06 ED Screening Note: 34 y o female presents cc of abdominal pain and cc of a knot in top left quad of abd cc of diarhea worsening with eating This initial assessment/diagnostic orders/clinical plan/treatment(s) is/are subject to change based on patients health status, clinical progression and re- assessment by fellow clinical providers in the ED. Further treatment and workup at subsequent clinical providers discretion. Patient/guardian urged not to elope from the ED as their condition may be serious if not clinically assessed and managed. Initial orders include: labs ua
[2019-02-28 23:07] LABS: Basophils # (Auto) 0.1 K/mm3 (0.0-0.1); Basophils % (Auto) 0.8 % (0.0-1.8); Eosinophils # (Auto) 0.1 K/mm3 (0.0-0.4); Eosinophils % (Auto) 1.2 % (0.0-4.3); Hematocrit 38.1 % (30.3-42.9); Hemoglobin 12.7 gm/dl (10.1-14.3); Lymphocytes # (Auto) 2.4 K/mm3 (1.2-5.4); Lymphocytes % (Auto) 32.9 % (13.4-35.0); Mean Corpuscular HGB Conc 33 % (30-34); Mean Corpuscular Volume 92 fl (79-97); Monocytes # (Auto) 0.6 K/mm3 (0.0-0.8); Monocytes % (Auto) 8.4 % (0.0-7.3); Platelet Count 283 K/mm3 (140-440); Red Blood Count 4.13 M/mm3 (3.65-5.03); Red Cell Distribution Width 13.6 % (13.2-15.2)
[2019-02-28 23:34] LABS: Alanine Aminotransferase 18 units/L (7-56); Albumin 4.3 g/dL (3.9-5); BUN/Creatinine Ratio 14; Blood Urea Nitrogen 10 mg/dL (7-17); Calcium 9.3 mg/dL (8.4-10.2); Hemolysis Index 9
[2019-02-28] MEDS ORDERED: ACETAMINOPHEN 500 MG TAB PO ONE (23:58)
[2019-03-01 00:47] LABS: Bilirubin,Urine NEG (Negative); Blood,Urine NEG (Negative); Color,Urine Yellow (Yellow); Mucus,Urine 2+ /HPF; Urobilinogen,Urine < 2.0 mg/dL (<2.0)
[2019-03-01 00:51] LABS: HCG Qualitative,Urine Negative (Negative)
--- NOTE | 2019-03-01 01:02 | Emergency Department Report ---
ED Abdominal Pain HPI - General Chief Complaint: Abdominal Pain Stated Complaint: ABD PAIN Time Seen by Provider: 02/28/19 23:57 Source: patient Mode of arrival: Ambulatory Limitations: No Limitations - History of Present Illness Initial Comments: Ms. Vazquez is a 74 mg emergency female who presents with left upper quadrant abdominal pain for 3 months. Spasms intermittently. Patient denies fevers / chills no nausea vomiting. Patient is tolerating by mouth intake. There is occasional diarrhea. No persistent constipation. Symptoms are removed by rest. Symptoms are exacerbated by eating. PT denies substance ,or ETOH abuse MD Complaint: abdominal pain Onset/Timin -: Gradual, month(s) Location: [facility] Radiation: none Migration to: [facility] Severity scale (0 -10): 3 Quality: aching Consistency: intermittent Improves With: nothing Worsens With: eating Associated Symptoms: diarrhea (intermittently ) - Related Data LMP (females 10-50): 3 weeks Previous Rx's Medication Instructions Recorded Last Taken Type Acetaminophen/Codeine [Tylenol #3] 1 tab PO Q6H PRN #12 tab 09/07/16 Unknown Rx Nystas/Diphen/Xyl Visc/Mylanta 30 ml PO TID PRN #240 ml 08/22/17 Unknown Rx [Magic Mouthwash] Cephalexin [Keflex] 500 mg PO BID #20 capsule 12/21/17 Unknown Rx Dexchlorpheniram/Phenylephrine 1 each PO Q6H #16 tablet 12/21/17 Unknown Rx [Rymed Tablet] Fluticasone [Flonase] 1 spray NS QDAY #1 bottle 12/21/17 Unknown Rx Amoxicillin/K Clav Tab [Augmentin 1 tab PO Q12HR #20 tab 12/24/17 Unknown Rx 875 mg] Ibuprofen [Motrin] 600 mg PO Q8H PRN #30 tablet 12/24/17 Unknown Rx Nystas/Diphen/Xyl Visc/Mylanta 30 ml MM TID PRN 5 Days ml 12/24/17 Unknown Rx [Magic Mouthwash] Ibuprofen [Motrin] 800 mg PO Q8HR PRN #20 tablet 08/16/18 Unknown Rx Penicillin V Potassium 500 mg PO Q6H #40 tablet 08/16/18 Unknown Rx methylPREDNISolone [Medrol] 4 mg PO DAILY #21 tab.ds.pk 08/16/18 Unknown Rx Amoxicillin [Amoxicillin TAB] 875 mg PO BID #20 tablet 02/07/19 Unknown Rx Ibuprofen [Motrin] 600 mg PO Q8H PRN #20 tablet 02/07/19 Unknown Rx Nystas/Diphen/Xyl Visc/Mylanta 15 ml MM Q6H PRN 5 Days ml 02/07/19 Unknown Rx [Magic Mouthwash] Clindamycin [Clindamycin CAP] 300 mg PO Q8HR #60 capsule 02/10/19 Unknown Rx Ibuprofen [Motrin 800 MG tab] 800 mg PO Q8HR PRN #30 tablet 02/10/19 Unknown Rx Lidocaine Viscous 2% 10 ml PO Q6H PRN #120 ml 02/10/19 Unknown Rx Prednisone [predniSONE 10 mg 10 mg PO .TAPER #21 tab.ds.pk 02/10/19 Unknown Rx (6-Day Pack, 21 Tabs)] Naproxen 500 mg PO BID PRN #30 tablet 03/01/19 Unknown Rx Allergies Allergy/AdvReac Type Severity Reaction Status Date / Time Sulfa (Sulfonamide Allergy Unknown Verified 02/10/19 16:34 Antibiotics) ED Review of Systems ROS: Stated complaint: ABD PAIN Other details as noted in HPI Constitutional: denies: chills, fever Eyes: denies: eye pain, eye discharge, vision change ENT: denies: ear pain, throat pain Respiratory: denies: cough, shortness of breath, wheezing Cardiovascular: denies: chest pain, palpitations Endocrine: no symptoms reported Gastrointestinal: abdominal pain, diarrhea. denies: nausea, vomiting, constipation, hematemesis, melena, hematochezia Genitourinary: denies: urgency, dysuria, frequency, hematuria, discharge, abnormal menses, dyspareunia Musculoskeletal: denies: back pain, joint swelling, arthralgia Skin: denies: rash, lesions Neurological: denies: headache, weakness, paresthesias, vertigo Psychiatric: anxiety. denies: depression Hematological/Lymphatic: denies: easy bleeding, easy bruising ED Past Medical Hx - Past Medical History Previous Medical History?: Yes Hx Congestive Heart Failure: Yes (in 2005 related 13 YRS AGO) Additional medical history: Vaginal delivery x 3, frequent/chronic SORE THROAT - Surgical History Past Surgical History?: Yes Additional Surgical History: hernia repair x 2, endoscopy 1992 - Social History Smoking Status: Never Smoker Substance Use Type: None - Medications Home Medications: Home Medications Medication Instructions Recorded Confirmed Last Taken Type Acetaminophen/Codeine [Tylenol #3] 1 tab PO Q6H PRN #12 tab 09/07/16 Unknown Rx Nystas/Diphen/Xyl Visc/Mylanta 30 ml PO TID PRN #240 ml 08/22/17 Unknown Rx [Magic Mouthwash] Cephalexin [Keflex] 500 mg PO BID #20 capsule 12/21/17 Unknown Rx Dexchlorpheniram/Phenylephrine 1 each PO Q6H #16 tablet 12/21/17 Unknown Rx [Rymed Tablet] Fluticasone [Flonase] 1 spray NS QDAY #1 bottle 12/21/17 Unknown Rx Amoxicillin/K Clav Tab [Augmentin 1 tab PO Q12HR #20 tab 12/24/17 Unknown Rx 875 mg] Ibuprofen [Motrin] 600 mg PO Q8H PRN #30 tablet 12/24/17 Unknown Rx Nystas/Diphen/Xyl Visc/Mylanta 30 ml MM TID PRN 5 Days ml 12/24/17 Unknown Rx [Magic Mouthwash] Ibuprofen [Motrin] 800 mg PO Q8HR PRN #20 tablet 08/16/18 Unknown Rx Penicillin V Potassium 500 mg PO Q6H #40 tablet 08/16/18 Unknown Rx methylPREDNISolone [Medrol] 4 mg PO DAILY #21 tab.ds.pk 08/16/18 Unknown Rx Amoxicillin [Amoxicillin TAB] 875 mg PO BID #20 tablet 02/07/19 Unknown Rx Ibuprofen [Motrin] 600 mg PO Q8H PRN #20 tablet 02/07/19 Unknown Rx Nystas/Diphen/Xyl Visc/Mylanta 15 ml MM Q6H PRN 5 Days ml 02/07/19 Unknown Rx [Magic Mouthwash] Clindamycin [Clindamycin CAP] 300 mg PO Q8HR #60 capsule 02/10/19 Unknown Rx Ibuprofen [Motrin 800 MG tab] 800 mg PO Q8HR PRN #30 tablet 02/10/19 Unknown Rx Lidocaine Viscous 2% 10 ml PO Q6H PRN #120 ml 02/10/19 Unknown Rx Prednisone [predniSONE 10 mg 10 mg PO .TAPER #21 tab.ds.pk 02/10/19 Unknown Rx (6-Day Pack, 21 Tabs)] Naproxen 500 mg PO BID PRN #30 tablet 03/01/19 Unknown Rx ED Physical Exam - General Limitations: No Limitations General appearance: alert, in no apparent distress - Head Head exam: Present: atraumatic, normocephalic - Eye Eye exam: Present: normal appearance - ENT ENT exam: Present: mucous membranes moist - Neck Neck exam: Present: normal inspection, full ROM. Absent: tenderness, lymphadenopathy - Respiratory Respiratory exam: Present: normal lung sounds bilaterally, chest wall tenderness. Absent: respiratory distress, wheezes, stridor - Cardiovascular Cardiovascular Exam: Present: regular rate, normal rhythm, normal heart sounds. Absent: systolic murmur, diastolic murmur, rubs, gallop - GI/Abdominal GI/Abdominal exam: Present: soft, normal bowel sounds. Absent: distended, tenderness, guarding, rebound, rigid, bruit, hernia - Rectal Rectal exam: Present: deferred - Extremities Exam Extremities exam: Present: normal inspection, full ROM. Absent: tenderness - Back Exam Back exam: Present: normal inspection, CVA tenderness (R), CVA tenderness (L). Absent: full ROM, tenderness, vertebral tenderness - Neurological Exam Neurological exam: Present: alert, oriented X3 - Psychiatric Psychiatric exam: Present: normal affect, normal mood - Skin Skin exam: Present: warm, dry, intact, normal color. Absent: rash ED Course Vital Signs 02/28/19 20:56 Temperature 98.5 F Pulse Rate 96 H Respiratory 20 Rate Blood Pressure 134/87 O2 Sat by Pulse 96 Oximetry ED Medical Decision Making - Lab Data Result diagrams: 02/28/19 22:32 02/28/19 22:32 Labs 02/28/19 02/28/19 02/28/19 22:32 22:32 Unknown WBC 7.3 RBC 4.13 Hgb 12.7 Hct 38.1 MCV 92 MCH 31 MCHC 33 RDW 13.6 Plt Count 283 Lymph % (Auto) 32.9 [place] % (Auto) 8.4 H Eos % (Auto) 1.2 Baso % (Auto) 0.8 Lymph # 2.4 [place] # 0.6 Eos # 0.1 Baso # 0.1 Seg Neutrophils % 56.7 Seg Neutrophils # 4.1 Sodium 139 Potassium 4.0 Chloride 100.9 Carbon Dioxide 23 Anion Gap 19 BUN 10 Creatinine 0.7 Estimated GFR > 60 BUN/Creatinine Ratio 14 Glucose 90 Calcium 9.3 Total Bilirubin 0.40 AST 16 ALT 18 Alkaline Phosphatase 60 Total Protein 7.4 Albumin 4.3 Albumin/Globulin Ratio 1.4 Urine Color Yellow Urine Turbidity Clear Urine pH 5.0 Ur Specific [place] 1.027 Urine Protein 30 mg/dl Urine Glucose (UA) Neg Urine Ketones 20 Urine Blood Neg Urine Nitrite Neg Urine Bilirubin Neg Urine Urobilinogen < 2.0 Ur Leukocyte Esterase Neg Urine WBC (Auto) 2.0 Urine RBC (Auto) 2.0 U Epithel Cells (Auto) 6.0 Urine Mucus 2+ Urine HCG, Qual Negative - Radiology Data Radiology results: report reviewed, image reviewed Referring Physician: JACKIE PHILIPPE Patient Name: MALCOLM VAZQUEZ Date of : 1985 Sex: Female Report Date: 2019-03-01 Report Status: Finalized Findings [facility] [address] [place] [address] XRay Report Signed Patient: MALCOLM VAZQUEZ MR#: [id number] : 1985 Acct:[id number] Age/Sex: 34 / F ADM Date: 02/28/19 Loc: ED Attending Dr: Ordering Physician: JACKIE PHILIPPE NP Date of Service: 03/01/19 Procedure(s): XR abdomen 1V ap Accession Number(s): [id number] cc: JACKIE PHILIPPE NP Fluoro Time In Minutes: ABDOMEN 1 VIEW(S) INDICATION / CLINICAL INFORMATION: abd pain. COMPARISON: None available. FINDINGS: TUBES / LINES: None. BOWEL GAS PATTERN: No significant abnormality. ADDITIONAL FINDINGS: No significant additional findings. Signer Name: Carlo Farris MD Signed: 03/01/2019 1:14 AM Workstation Name: [id number] Transcribed By: ES Dictated By: Carlo Farris MD Electronically Authenticated By: Carlo Farris MD Signed Date/Time: 03/01/19113 DD/ 2 TD/TT: - Medical Decision Making all labs are normal, exam is benign, kub: normal gas pattern, pt is tolerating po intake there is no n/v no fever or chills, no vaginal bleeding , no vaginal discharge plan: dc to home , prn rx naproxen, follow up with GI, follow up with pcp return to ed if symptoms worsen, pt verbalized agreement and understanding of discharge plan. Critical care attestation.: If time is entered above; I have spent that time in minutes in the direct care of this critically ill patient, excluding procedure time. ED Disposition Clinical Impression: Abdominal pain Qualifiers: Abdominal location: generalized Qualified Code(s): R10.84 - Generalized abdominal pain Disposition: DC-01 TO HOME OR SELFCARE Is pt being admited?: No Condition: Stable Instructions: Abdominal Pain (ED) Prescriptions: Naproxen 500 mg PO BID PRN #30 tablet PRN Reason: pain Referrals: [facility] [Provider Group] - 3-5 Days [facility] [Provider Group] - 3-5 Days Forms: Work/School Release Form(ED) Time of Disposition: 01:51
--- NOTE | 2019-03-01 01:18 | XRay Report ---
ABDOMEN 1 VIEW(S) INDICATION / CLINICAL INFORMATION: abd pain. COMPARISON: None available. FINDINGS: TUBES / LINES: None. BOWEL GAS PATTERN: No significant abnormality. ADDITIONAL FINDINGS: No significant additional findings. Signer Name: Carlo Farris MD Signed: 03/01/2019 1:14 AM Workstation Name: [id number]
== END 2019-03-01 02:25 | disposition home or self-care (01) ==
LOC: ED 20:22
DX: R10.12 Left upper quadrant pain (principal); R19.7 Diarrhea, unspecified; I50.9 Heart failure, unspecified; Z79.899 Other long term (current) drug therapy; Z79.1 Long term (current) use of non-steroidal anti-inflammatories (NSAID); Z88.2 Allergy status to sulfonamides
CPT/HCPCS: 36415; 74018; 80053; 81001; 81025; 85025; 99284

== ENCOUNTER 2019-05-30 08:41 | Emergency (ER) | payer OTHER ==
[2019-05-30] MEDS ORDERED: dexAMETHasone 20 MG/5 ML VIAL IM ONE (11:58)
--- NOTE | 2019-05-30 12:22 | Emergency Department Report ---
ED ENT HPI - General Chief complaint: Sore Throat Stated complaint: SORE THROAT Time Seen by Provider: 05/30/19 11:55 Source: patient Mode of arrival: Ambulatory Limitations: No Limitations - History of Present Illness Initial comments: Patient is a 13-year-old male who presents to ED with his mother complaining of throat pain 4 days. Patient states she gets recurrent strep throat infections and is waiting to see ENT who would see her. patient describes pain as throbbing in nature, 8 out of 10 intensity, nonradiating, localized to his throat. Admits pain with swallowing and eating. Patient admits no appetite due to throat pain. Patient admits fever for the first 2 days but not at the moment. Patient denies nausea/vomiting/abdominal pain/shortness of breath/chest pain/headache. MD complaint: sore throat - Related Data Previous Rx's Medication Instructions Recorded Last Taken Type Acetaminophen/Codeine [Tylenol #3] 1 tab PO Q6H PRN #12 tab 09/07/16 Unknown Rx Nystas/Diphen/Xyl Visc/Mylanta 30 ml PO TID PRN #240 ml 08/22/17 Unknown Rx [Magic Mouthwash] Cephalexin [Keflex] 500 mg PO BID #20 capsule 12/21/17 Unknown Rx Dexchlorpheniram/Phenylephrine 1 each PO Q6H #16 tablet 12/21/17 Unknown Rx [Rymed Tablet] Fluticasone [Flonase] 1 spray NS QDAY #1 bottle 12/21/17 Unknown Rx Amoxicillin/K Clav Tab [Augmentin 1 tab PO Q12HR #20 tab 12/24/17 Unknown Rx 875 mg] Ibuprofen [Motrin] 600 mg PO Q8H PRN #30 tablet 12/24/17 Unknown Rx Ibuprofen [Motrin] 800 mg PO Q8HR PRN #20 tablet 08/16/18 Unknown Rx Penicillin V Potassium 500 mg PO Q6H #40 tablet 08/16/18 Unknown Rx methylPREDNISolone [Medrol] 4 mg PO DAILY #21 tab.ds.pk 08/16/18 Unknown Rx Ibuprofen [Motrin] 600 mg PO Q8H PRN #20 tablet 02/07/19 Unknown Rx Nystas/Diphen/Xyl Visc/Mylanta 15 ml MM Q6H PRN 5 Days ml 02/07/19 Unknown Rx [Magic Mouthwash] Clindamycin [Clindamycin CAP] 300 mg PO Q8HR #60 capsule 02/10/19 Unknown Rx Ibuprofen [Motrin 800 MG tab] 800 mg PO Q8HR PRN #30 tablet 02/10/19 Unknown Rx Lidocaine Viscous 2% 10 ml PO Q6H PRN #120 ml 02/10/19 Unknown Rx Prednisone [predniSONE 10 mg 10 mg PO .TAPER #21 tab.ds.pk 02/10/19 Unknown Rx (6-Day Pack, 21 Tabs)] Naproxen 500 mg PO BID PRN #30 tablet 03/01/19 Unknown Rx Amoxicillin [Amoxicillin TAB] 875 mg PO BID #20 tablet 05/30/19 Unknown Rx Nystas/Diphen/Xyl Visc/Mylanta 30 ml MM TID PRN 5 Days #120 ml 05/30/19 Unknown Rx [Magic Mouthwash] Allergies Allergy/AdvReac Type Severity Reaction Status Date / Time Sulfa (Sulfonamide Allergy Unknown Verified 05/30/19 08:43 Antibiotics) ED Dental HPI - General Chief complaint: Sore Throat Stated complaint: SORE THROAT Time Seen by Provider: 05/30/19 11:55 Source: patient Mode of arrival: Ambulatory Limitations: No Limitations - Related Data Previous Rx's Medication Instructions Recorded Last Taken Type Acetaminophen/Codeine [Tylenol #3] 1 tab PO Q6H PRN #12 tab 09/07/16 Unknown Rx Nystas/Diphen/Xyl Visc/Mylanta 30 ml PO TID PRN #240 ml 08/22/17 Unknown Rx [Magic Mouthwash] Cephalexin [Keflex] 500 mg PO BID #20 capsule 12/21/17 Unknown Rx Dexchlorpheniram/Phenylephrine 1 each PO Q6H #16 tablet 12/21/17 Unknown Rx [Rymed Tablet] Fluticasone [Flonase] 1 spray NS QDAY #1 bottle 12/21/17 Unknown Rx Amoxicillin/K Clav Tab [Augmentin 1 tab PO Q12HR #20 tab 12/24/17 Unknown Rx 875 mg] Ibuprofen [Motrin] 600 mg PO Q8H PRN #30 tablet 12/24/17 Unknown Rx Ibuprofen [Motrin] 800 mg PO Q8HR PRN #20 tablet 08/16/18 Unknown Rx Penicillin V Potassium 500 mg PO Q6H #40 tablet 08/16/18 Unknown Rx methylPREDNISolone [Medrol] 4 mg PO DAILY #21 tab.ds.pk 08/16/18 Unknown Rx Ibuprofen [Motrin] 600 mg PO Q8H PRN #20 tablet 02/07/19 Unknown Rx Nystas/Diphen/Xyl Visc/Mylanta 15 ml MM Q6H PRN 5 Days ml 02/07/19 Unknown Rx [Magic Mouthwash] Clindamycin [Clindamycin CAP] 300 mg PO Q8HR #60 capsule 02/10/19 Unknown Rx Ibuprofen [Motrin 800 MG tab] 800 mg PO Q8HR PRN #30 tablet 02/10/19 Unknown Rx Lidocaine Viscous 2% 10 ml PO Q6H PRN #120 ml 02/10/19 Unknown Rx Prednisone [predniSONE 10 mg 10 mg PO .TAPER #21 tab.ds.pk 02/10/19 Unknown Rx (6-Day Pack, 21 Tabs)] Naproxen 500 mg PO BID PRN #30 tablet 03/01/19 Unknown Rx Amoxicillin [Amoxicillin TAB] 875 mg PO BID #20 tablet 05/30/19 Unknown Rx Nystas/Diphen/Xyl Visc/Mylanta 30 ml MM TID PRN 5 Days #120 ml 05/30/19 Unknown Rx [Magic Mouthwash] Allergies Allergy/AdvReac Type Severity Reaction Status Date / Time Sulfa (Sulfonamide Allergy Unknown Verified 05/30/19 08:43 Antibiotics) ED Review of Systems ROS: Stated complaint: SORE THROAT Other details as noted in HPI Comment: All other systems reviewed and negative ED Past Medical Hx - Past Medical History Hx Congestive Heart Failure: Yes (in 2005 related 13 YRS AGO) Additional medical history: Vaginal delivery x 3, frequent/chronic SORE THROAT - Surgical History Additional Surgical History: hernia repair x 2, endoscopy 1992 - Social History Smoking Status: Never Smoker Substance Use Type: None - Medications Home Medications: Home Medications Medication Instructions Recorded Confirmed Last Taken Type Acetaminophen/Codeine [Tylenol #3] 1 tab PO Q6H PRN #12 tab 09/07/16 Unknown Rx Nystas/Diphen/Xyl Visc/Mylanta 30 ml PO TID PRN #240 ml 08/22/17 Unknown Rx [Magic Mouthwash] Cephalexin [Keflex] 500 mg PO BID #20 capsule 12/21/17 Unknown Rx Dexchlorpheniram/Phenylephrine 1 each PO Q6H #16 tablet 12/21/17 Unknown Rx [Rymed Tablet] Fluticasone [Flonase] 1 spray NS QDAY #1 bottle 12/21/17 Unknown Rx Amoxicillin/K Clav Tab [Augmentin 1 tab PO Q12HR #20 tab 12/24/17 Unknown Rx 875 mg] Ibuprofen [Motrin] 600 mg PO Q8H PRN #30 tablet 12/24/17 Unknown Rx Ibuprofen [Motrin] 800 mg PO Q8HR PRN #20 tablet 08/16/18 Unknown Rx Penicillin V Potassium 500 mg PO Q6H #40 tablet 08/16/18 Unknown Rx methylPREDNISolone [Medrol] 4 mg PO DAILY #21 tab.ds.pk 08/16/18 Unknown Rx Ibuprofen [Motrin] 600 mg PO Q8H PRN #20 tablet 02/07/19 Unknown Rx Nystas/Diphen/Xyl Visc/Mylanta 15 ml MM Q6H PRN 5 Days ml 02/07/19 Unknown Rx [Magic Mouthwash] Clindamycin [Clindamycin CAP] 300 mg PO Q8HR #60 capsule 02/10/19 Unknown Rx Ibuprofen [Motrin 800 MG tab] 800 mg PO Q8HR PRN #30 tablet 02/10/19 Unknown Rx Lidocaine Viscous 2% 10 ml PO Q6H PRN #120 ml 02/10/19 Unknown Rx Prednisone [predniSONE 10 mg 10 mg PO .TAPER #21 tab.ds.pk 02/10/19 Unknown Rx (6-Day Pack, 21 Tabs)] Naproxen 500 mg PO BID PRN #30 tablet 03/01/19 Unknown Rx Amoxicillin [Amoxicillin TAB] 875 mg PO BID #20 tablet 05/30/19 Unknown Rx Nystas/Diphen/Xyl Visc/Mylanta 30 ml MM TID PRN 5 Days #120 ml 05/30/19 Unknown Rx [Magic Mouthwash] ED Physical Exam - General Limitations: No Limitations General appearance: alert, in no apparent distress - Head Head exam: Present: atraumatic, normocephalic - Eye Eye exam: Present: normal appearance - ENT ENT exam: Present: mucous membranes moist - Expanded ENT Exam Expanded Mouth exam: Present: normal external inspection Throat exam: Positive: tonsillar erythema, tonsillomegaly, tonsillar exudate, other (Patent airways) - Neck Neck exam: Present: normal inspection - Respiratory Respiratory exam: Present: normal lung sounds bilaterally. Absent: respiratory distress - Cardiovascular Cardiovascular Exam: Present: regular rate, normal rhythm. Absent: systolic murmur, diastolic murmur, rubs, gallop - GI/Abdominal GI/Abdominal exam: Present: soft, normal bowel sounds - Extremities Exam Extremities exam: Present: normal inspection - Back Exam Back exam: Present: normal inspection - Neurological Exam Neurological exam: Present: alert, oriented X3 - Psychiatric Psychiatric exam: Present: normal affect, normal mood - Skin Skin exam: Present: warm, dry, intact, normal color. Absent: rash ED Course Vital Signs 05/30/19 08:44 Temperature 98.9 F Pulse Rate 102 H Respiratory 18 Rate Blood Pressure 144/89 O2 Sat by Pulse 100 Oximetry ED Medical Decision Making - Medical Decision Making 34-year-old male presents with bacterial pharyngitis. ED course: Patient received 1 dose of Decadron in the ED for miild swelling Fever responsive to one dose of Tylenol. Vital signs stable patient is in no acute or respiratory distress. Discussed findings with patient about the positive strep. Discussed treatment in ED with patient Discussed the patient that strep throat is contagious and to limit sharing spoons and such. Discussed with patient follow-up with primary care physician. Patient verbally states he understands and will comply to follow-up. Critical care attestation.: If time is entered above; I have spent that time in minutes in the direct care of this critically ill patient, excluding procedure time. ED Disposition Clinical Impression: Acute bacterial tonsillitis, Acute pharyngitis Disposition: - TO HOME OR SELFCARE Is pt being admited?: No Does the pt Need Aspirin: No Condition: Stable Instructions: Tonsillitis (ED) Additional Instructions: Make sure to follow up with the primary care physician as discussed. Take all your medications as you've been prescribed. If you have any worsening symptoms or develop new symptoms please return to ED immediately. Prescriptions: Amoxicillin [Amoxicillin TAB] 875 mg PO BID #20 tablet Nystas/Diphen/Xyl Visc/Mylanta [Magic Mouthwash] 30 ml MM TID PRN 5 Days #120 ml PRN Reason: Sore Throat Referrals: PRIMARY CARE,MD [Primary Care Provider] - 3-5 Days [facility] [Outside] - 3-5 Days [facility] [Outside] - 3-5 Days [facility] [Outside] - 3-5 Days Forms: Accompanied Note, Work/School Release Form(ED) Time of Disposition: 12:44
[2019-05-30 13:36] VITALS: BP 125/77
== END 2019-05-30 13:34 | disposition home or self-care (01) ==
LOC: ED 08:41
DX: J02.9 Acute pharyngitis, unspecified (principal); J03.80 Acute tonsillitis due to other specified organisms; B96.89 Other specified bacterial agents as the cause of diseases classified elsewhere; Z88.2 Allergy status to sulfonamides; Z79.899 Other long term (current) drug therapy; Z98.890 Other specified postprocedural states
CPT/HCPCS: 96372; 99282; J1100

== ENCOUNTER 2019-12-26 15:28 | Observation (INO) | payer MEDICAID ==
[2019-12-26] MEDS ORDERED: LACTATED RINGERS 1,000 ML IV ONE ×3 (16:36→18:58)
[2019-12-26] MEDS: TERBUTALINE 1 MG/1 ML INJ SUB-Q SCH ×2 (17:13→18:53)
[2019-12-26 17:42] LABS: Bacteria,Urine 1+ /HPF (Negative); Bilirubin,Urine NEG (Negative); Blood,Urine NEG (Negative); Color,Urine Yellow (Yellow); Mucus,Urine 3+ /HPF
--- NOTE | 2019-12-26 21:03 | History and Physical Report ---
History of Present Illness Date of examination: 12/26/19 History of present illness: Patient presented office today for 35-week visit complaining of pelvic pressure and slightly dilated cervix in office exam 2 cm and patient was sent to triage labor and delivery for observation to rule out labor . Patient was o bserved in triage with a contractions that initially approximately every 3 minutes but improved from with to bruit putatively injections x2 but patient still had complaints of pressure and contractions without change in cervix RN in triage cervix was approximately one 1-1/2 centimeters but no change during her observation. Patient been admitted for observation and sedation due to contractions. Menstrual History Regularity: regular Menses every: 28 days Duration: 5 LMP: 04/25/2019 LMP reliability: definite LMP character: normal test type: urine test Date: 08/29/2019 BC at conception: none Planned ? no EDC Confirmation: 01/30/2020 Past History : 7 Term Births: 4 Premature Births: 0 Living Children: 4 Para: 4 Mult. Births: 0 Prev : 0 Aborta: 2 Elect. Ab: 1 Spont. Ab: 1 Ectopics: 0 # 1 Delivery date: 02/02/2003 Weeks Gestation: 39 labor: no Delivery type: Hours of labor: 16 Anesthesia type: epidural Delivery location: [place] Infant Sex: Male weight: 7-3 Name: Panda # 2 Delivery date: 05/17/2005 Weeks Gestation: 39 labor: no Delivery type: Hours of labor: 16 Anesthesia type: epidural Delivery location[place] [facility] [place] Sex: Female weight: 7-8 Name: Charlotte Comments: HTN/ CHF # 3 Delivery date: 11/2007 Weeks Gestation: 39 Delivery type: Anesthesia type: epidural weight: ? Comments: Infant was placed for adoption # 4 Delivery date: 2008 Delivery type: EAB # 5 Delivery date: 04/09/2012 Weeks Gestation: 38 labor: no Delivery type: Hours of labor: 12 Anesthesia type: none Delivery location: [facility] Sex: Male weight: 7-12 Name: Arian # 6 Delivery date: 2017 Weeks Gestation: SAB Delivery type: SAB Comments: No D&C Risk Factors: Smoked Tobacco Use: Former smoker Cigarettes: Yes Years smoked: 15 Year quit: 2016 Years Since Last Quit: 4 Smokeless Tobacco Use: Never Passive smoke exposure: no Drug use: no HIV high-risk behavior: no Alcohol use: no Exercise: no Seatbelt use: 100 % Past Medical History: Allergies-seasonal G E R D Past Surgical History: Bilateral inguinal hernia repairs D&C: (2008) EAB Family History Summary: Other Family Member - Has No Family History of Ovarvian Cancer - Entered On: 08/29/2019 Other Family Member - Has No Family History of Colon Cancer - Entered On: 08/29/2019 Other Family Member - Has No Family History of Breast Cancer - Entered On: 08/29/2019 Other Family Member - Has Family History of Hypertension - Entered On: 08/29/2019 Other Family Member - Has Family History of Diabetes - Entered On: 08/29/2019 Other Family Member - Has Family History of Coronary Heart Disease - Entered On: 08/29/2019 Social History: Marital Status: Children: 3 Occupation: [employer] Smoking History: Patient has never smoked. Past Medical History Surgery (Non-appeals representative): Bilateral inguinal hernia repairs D&C: (2008) EAB Abnormal PAP: negative Infertility: negative Uterine Anomaly: negative Social Hx: Marital Status: Children: 3 Occupation: [employer] Smoking History: Patient has never smoked. Infection History Hx of STD: none HIV Risk Eval: no Personal hx. of genital herpes: no Genetic History ADVANCED MATERNAL AGE Congenital Heart Defect: Mom: no Dad: no Marc Disease: Mom: no Dad: no Thalassemia Mom: no Dad: no Neural Tube Defect Mom: no Dad: no Down's Syndrome Mom: no Dad: no Eder-Sachs Mom: no Dad: no Sickle Cell Disease/Trait Mom: no Dad: no Hemophilia Mom: no Dad: no Muscular Dystrophy Mom: no Dad: no Cystic Fibrosis Mom: no Dad: no Kinzers Chorea Mom: no Dad: no Mental Retardation Mom: no Dad: no Fragile X Mom: no Dad: no Other Genetic/Chromosomal Disorder Mom: no Dad: no Child w/other defect Mom: no Dad: no Active Medications (reviewed today): None Current Allergies (reviewed today): * SULFUR (Critical) Past History Past Medical History: other (See HPI) Past Surgical History: other (See HPI) MASSEUR/MASSEUSE History: other (See HPI) Family/Genetic History: other (See HPI) Social history: full code, other (See HPI) - Obstetrical History Expected Date of Delivery: 01/30/20 Actual Gestation: 35 Week(s) 1 Day(s) : 7 Para: 4 Hx # Term Pregnancies: 4 Number of Pregnancies: 0 Spontaneous Abortions: 1 Induced : 1 Medications and Allergies Allergies Allergy/AdvReac Type Severity Reaction Status Date / Time Sulfa (Sulfonamide Allergy Unknown Verified 05/30/19 08:43 Antibiotics) Home Medications Medication Instructions Recorded Confirmed Last Taken Type Acetaminophen/Codeine [Tylenol #3] 1 tab PO Q6H PRN #12 tab 09/07/16 Unknown Rx Nystas/Diphen/Xyl Visc/Mylanta 30 ml PO TID PRN #240 ml 08/22/17 Unknown Rx [Magic Mouthwash] Cephalexin [Keflex] 500 mg PO BID #20 capsule 12/21/17 Unknown Rx Dexchlorpheniram/Phenylephrine 1 each PO Q6H #16 tablet 12/21/17 Unknown Rx [Rymed Tablet] Fluticasone [Flonase] 1 spray NS QDAY #1 bottle 12/21/17 Unknown Rx Amoxicillin/K Clav Tab [Augmentin 1 tab PO Q12HR #20 tab 12/24/17 Unknown Rx 875 mg] Ibuprofen [Motrin] 600 mg PO Q8H PRN #30 tablet 12/24/17 Unknown Rx Ibuprofen [Motrin] 800 mg PO Q8HR PRN #20 tablet 08/16/18 Unknown Rx Penicillin V Potassium 500 mg PO Q6H #40 tablet 08/16/18 Unknown Rx methylPREDNISolone [Medrol] 4 mg PO DAILY #21 tab.ds.pk 08/16/18 Unknown Rx Ibuprofen [Motrin] 600 mg PO Q8H PRN #20 tablet 02/07/19 Unknown Rx Nystas/Diphen/Xyl Visc/Mylanta 15 ml MM Q6H PRN 5 Days ml 02/07/19 Unknown Rx [Magic Mouthwash] Clindamycin [Clindamycin CAP] 300 mg PO Q8HR #60 capsule 02/10/19 Unknown Rx Ibuprofen [Motrin 800 MG tab] 800 mg PO Q8HR PRN #30 tablet 02/10/19 Unknown Rx Lidocaine Viscous 2% 10 ml PO Q6H PRN #120 ml 02/10/19 Unknown Rx Prednisone [predniSONE 10 mg 10 mg PO .TAPER #21 tab.ds.pk 02/10/19 Unknown Rx (6-Day Pack, 21 Tabs)] Naproxen 500 mg PO BID PRN #30 tablet 03/01/19 Unknown Rx Amoxicillin [Amoxicillin TAB] 875 mg PO BID #20 tablet 05/30/19 Unknown Rx Nystas/Diphen/Xyl Visc/Mylanta 30 ml MM TID PRN 5 Days #120 ml 05/30/19 Unknown Rx [Magic Mouthwash] Azithromycin [Zithromax Z-LUCAS] 250 mg PO DAILY #6 tablet 07/29/19 Unknown Rx Fluticasone [Flonase] 1 spray NS QDAY #1 bottle 07/29/19 Unknown Rx Active Meds: Active Medications Terbutaline Sulfate (Brethine) 0.25 mg SUB-Q Q20MIN ALEX Stop: 12/28/19 17:01 Last Admin: 12/26/19 18:53 Dose: 0.25 mg Documented by: - Vital Signs Vital signs: Vital Signs Pulse BP 100 H 140/71 12/26/19 16:04 12/26/19 16:04 Temp Pulse Resp BP Pulse Ox 97.9 F 115 H 20 119/65 97 12/26/19 18:56 12/26/19 20:52 12/26/19 18:56 12/26/19 20:20 12/26/19 20:52 - Physical Exam Cardiovascular: Regular rate Lungs: Positive: Normal air movement Abdomen: Positive: normal appearance, soft Cervix: Positive: other (Per RN) - Obstetrical FHR: category 1 Uterine Contraction Monitor Mode: External Uterine Contraction Pattern: Irregular Uterine Contraction Intensity: Moderate Results Abnormal lab results 12/26/19 Range/Units 17:17 U Epithel Cells (Auto) 31.0 H (0-13.0) /HPF All other labs normal. Assessment and Plan - Patient Problems (1) uterine contractions Current Visit: Yes Status: Acute Plan to address problem: Will admit observation overnight. Will give sedation monitor for possible labor (2) Advanced maternal age (AMA) in Current Visit: Yes Status: Acute (3) 35 weeks gestation of Current Visit: Yes Status: Acute
[2019-12-26] MEDS ORDERED: ACETAMINOPHEN 325 MG TAB PO PRN (21:04)
[2019-12-26] MEDS ORDERED: DOCUSATE SODIUM 100 MG CAP PO PRN (21:04)
[2019-12-26] MEDS ORDERED: MAGNESIUM HYDROXIDE (MOM) ORAL LIQD UDC PO PRN (21:04)
[2019-12-26] MEDS ORDERED: BUTORPHANOL 2 MG/1 ML INJ IV ONE (21:18)
[2019-12-26] MEDS ORDERED: LACTATED RINGERS 1,000 ML IV SCH (22:00)
[2019-12-27] MEDS: BUTORPHANOL 2 MG/1 ML INJ IV PRN ×5 (02:17→21:53)
--- NOTE | 2019-12-27 04:58 | Event Note ---
Date: 12/27/19 Received call from RN initially around 1:50 AM stating that patient's contractions had increased after the initially decrease in a spacing out with her dose of Stadol, and now patient desired more pain medication. At this time patient's cervix was thought to be 2 to 3 cm on exam. Will continue with the Stadol for pain. Received a second call from the nurse at approximately 4:45 AM stating that patient's contractions began again after initially decreasing and her cervical exam is 4 cm. With the change in cervix will admit patient diagnosis of premature labor. Her nurse indicates that she does not desires epidural. Will continue expectant management.
[2019-12-27 06:59] LABS: Hematocrit 32.8 % (30.3-42.9); Hemoglobin 11.1 gm/dl (10.1-14.3); Mean Corpuscular HGB Conc 34 % (30-34); Mean Corpuscular Volume 91 fl (79-97); Platelet Count 267 K/mm3 (140-440); Red Blood Count 3.61 M/mm3 (3.65-5.03); Red Cell Distribution Width 13.7 % (13.2-15.2)
--- NOTE | 2019-12-27 07:39 | Progress Note ---
Assessment and Plan A: 34 y.o. @ 35 + wks, with labor. Feeling vaginal pressure, Cervical exam 2.5/50/-3. P: Continue with labor and delivery care. Expectant management. Subjective - Subjective Date of service: 12/27/19 (Feeling pressure) Principal diagnosis: IUP @ 35 + wks, labor Patient reports: other (Pt states that she is feeling vaginal pressure. ) Objective - Vital Signs Vital Signs: Vital Signs - 12hr 12/26/19 12/26/19 12/26/19 19:36 19:39 19:54 Temperature Pulse Rate 123 H 125 H 120 H Respiratory Rate Blood Pressure 135/82 O2 Sat by Pulse 100 97 Oximetry 12/26/19 12/26/19 12/26/19 19:59 20:04 20:05 Temperature Pulse Rate 121 H 116 H 118 H Respiratory Rate Blood Pressure 126/69 O2 Sat by Pulse 91 99 Oximetry 12/26/19 12/26/19 12/26/19 20:09 20:12 20:14 Temperature Pulse Rate 120 H 113 H 121 H Respiratory Rate Blood Pressure O2 Sat by Pulse 97 93 98 Oximetry 12/26/19 12/26/19 12/26/19 20:19 20:20 20:24 Temperature Pulse Rate 117 H 121 H 123 H Respiratory Rate Blood Pressure 119/65 O2 Sat by Pulse 97 99 Oximetry 12/26/19 12/26/19 12/26/19 20:37 20:42 20:47 Temperature Pulse Rate 129 H 118 H 119 H Respiratory Rate Blood Pressure O2 Sat by Pulse 93 98 98 Oximetry 12/26/19 12/26/19 12/26/19 20:52 20:57 21:02 Temperature Pulse Rate 115 H 118 H 111 H Respiratory Rate Blood Pressure O2 Sat by Pulse 97 98 93 Oximetry 12/26/19 12/27/19 12/27/19 22:10 02:17 04:36 Temperature Pulse Rate Respiratory 18 18 18 Rate Blood Pressure O2 Sat by Pulse Oximetry 12/27/19 12/27/19 12/27/19 06:21 06:22 07:10 Temperature 98.1 F 98.8 F Pulse Rate 75 Respiratory 18 Rate Blood Pressure 116/77 O2 Sat by Pulse Oximetry - Exam Breasts: deferred Cardiovascular: Regular rate Lungs: Normal air movement Abdomen: Present: normal appearance, soft Vulva: both: normal Uterus: Present: normal FHR: auscultation normal Uterine Contraction Monitor Mode: External Cervical Dilatation: 2.5 (Medium to firm) Cervical Effacement Percentage: 50 station: -3 Uterine Contraction Pattern: Regular Uterine Tone Measurement Phase: Resting Uterine Contraction Intensity: Mild Extremities: normal Deep Tendon Reflex Grade: Normal +2 - Labs Labs: Abnormal Labs 12/26/19 12/27/19 17:17 06:36 RBC 3.61 L U Epithel Cells (Auto) 31.0 H Laboratory Results - last 24 hr 12/26/19 12/26/19 12/26/19 17:17 17:17 17:17 WBC RBC Hgb Hct MCV MCH MCHC RDW Plt Count Urine Color Yellow Urine Turbidity Cloudy Urine pH 6.0 Ur Specific [place] 1.027 Urine Protein 30 mg/dl Urine Glucose (UA) Neg Urine Ketones Neg Urine Blood Neg Urine Nitrite Neg Urine Bilirubin Neg Urine Urobilinogen 4.0 Ur Leukocyte Esterase Neg Urine WBC (Auto) 1.0 Urine RBC (Auto) 5.0 U Epithel Cells (Auto) 31.0 H Urine Bacteria (Auto) 1+ Urine Mucus 3+ Syphilis IgG Antibody Nonreactive HIV 1&2 Antibody Rapid Non react HIV P24 Antigen Non react 12/27/19 12/27/19 06:36 06:36 WBC 7.8 RBC 3.61 L Hgb 11.1 Hct 32.8 MCV 91 MCH 31 MCHC 34 RDW 13.7 Plt Count 267 Urine Color Urine Turbidity Urine pH Ur Specific [place] Urine Protein Urine Glucose (UA) Urine Ketones Urine Blood Urine Nitrite Urine Bilirubin Urine Urobilinogen Ur Leukocyte Esterase Urine WBC (Auto) Urine RBC (Auto) U Epithel Cells (Auto) Urine Bacteria (Auto) Urine Mucus Syphilis IgG Antibody Nonreactive HIV 1&2 Antibody Rapid HIV P24 Antigen
[2019-12-27] MEDS: TERBUTALINE 1 MG/1 ML INJ SUB-Q SCH (07:44)
[2019-12-27 08:45] LABS: Band Neutrophils # (Manual) 0.2 K/mm3; Basophils % (Manual) 0 % (0.0-1.8); Eosinophils % (Manual) 0 % (0.0-4.3); Total Cells Counted 100
[2019-12-27 08:46] LABS: Platelet Estimate Consistent w Auto; RBC Morphology Normal
--- NOTE | 2019-12-28 00:41 | Event Note ---
Date: 12/28/19 (Late Entry from 1999: Pt still feeling ctxs.) Late Entry from 1999. Cervical exam remains unchanged at this time (2.5/50/-3). Pt states that she is still feeling ctxs. She has been refusing pain medication because she states that it makes her feel loopy. She is s/p 3 doses of terb, and IV fluid boluses. Discussed with patient that there is no clear cut reason why she is continuing to caitlyn and that we would continue to watch her and her baby. " I'm just tired of this and I don't know what to do about this, and I can not continue like this." Pt asked if she could go home at this time, but then immediately after asking stated that she did not want to go home because of the contraction pain. Asking what she would do at home if she continue to contract. Again, I offered pain medication and she refused. Discussed that we would then continue to watch her tonight. Also will let pt get up out of bed to shower and eat dinner. Pt verbalized understanding and agreed to the plan of care for the night.
[2019-12-28] MEDS ORDERED: diphenhydrAMINE 50 MG CAP PO PRN (00:43)
[2019-12-28] MEDS: BUTORPHANOL 2 MG/1 ML INJ IV PRN (03:52)
[2019-12-28] MEDS ORDERED: BUTORPHANOL 2 MG/1 ML INJ IV PRN (07:03)
[2019-12-28] MEDS ORDERED: ACETAMINOPHEN 500 MG TAB PO PRN (08:00)
--- NOTE | 2019-12-28 08:07 | Progress Note ---
<OSMAR FAUSTIN - Last Filed: 12/28/19 11:14> Assessment and Plan pt went for approx 2 hours this AM w/o contractions. Went in to explain POC to pt and discuss that these ctx may continue for remainder of . Pt divulged to me that she is under a lot of stress in her life: 1. lost her job due to Covid - where she worked closed 2. she had to have her mom, who is HIV+, move out of their house due to disrupting their family 3. her 16yo has quit school and moved in with his biological dad, just released from jail 4. she does stress that her present is very supportive and loving and has been a blessing to her "I'm just overwhelmed, I don't want my baby to come early." Consulted with Dr Garcia Plan: 1. stop Stadol 2. Tylenol 1,000mg Q6h 3. Procardia 10mg BID 4. Will collect fFN once its been 24hr since last SVE 5. Convert IV to INT - encouraged pt to ambulate be up in the room 6. D/C home if ctx decrease and there is no change in cervix or fetus Reviewed POC with pt she agrees. She does ask to speak with Case Mgt declines MH at this time. Subjective - Subjective Date of service: 12/28/19 (pt trying to rest) Principal diagnosis: IUP @ 35 + wks, contractions Patient reports: movement normal, other (Pt states that she is feeling vaginal pressure. ) Objective - Vital Signs Vital Signs: Vital Signs - 12hr 12/27/19 12/27/19 12/27/19 20:06 21:53 23:35 Temperature 98.3 F Pulse Rate 92 H Respiratory 20 Rate Blood Pressure 141/78 12/28/19 12/28/19 12/28/19 03:35 03:48 03:52 Temperature 98.4 F Pulse Rate 93 H Respiratory 22 Rate Blood Pressure 129/71 - Exam Breasts: deferred Cardiovascular: Regular rate Lungs: Normal air movement Abdomen: Present: normal appearance, soft. Absent: distention, tenderness Uterus: Present: normal FHR: auscultation normal, category 1 Uterine Contraction Monitor Mode: External Uterine Contraction Pattern: Regular Uterine Tone Measurement Phase: Resting Uterine Contraction Intensity: Mild Extremities: normal Deep Tendon Reflex Grade: Normal +2 - Labs Labs: Abnormal Labs 12/26/19 12/27/19 17:17 06:36 RBC 3.61 L Seg Neuts % (Manual) 73.0 H U Epithel Cells (Auto) 31.0 H Laboratory Results - last 24 hr 12/27/19 12/27/19 06:36 06:39 WBC 7.8 RBC 3.61 L Hgb 11.1 Hct 32.8 MCV 91 MCH 31 MCHC 34 RDW 13.7 Plt Count 267 Add Manual Diff Complete Total Counted 100 Seg Neuts % (Manual) 73.0 H Band Neutrophils % 2.0 Lymphocytes % (Manual) 21.0 Reactive Lymphs % (Man) 0 Monocytes % (Manual) 4.0 Eosinophils % (Manual) 0 Basophils % (Manual) 0 Metamyelocytes % 0 Myelocytes % 0 Promyelocytes % 0 Blast Cells % 0 Nucleated RBC % Not Reportable Seg Neutrophils # Man 5.7 Band Neutrophils # 0.2 Lymphocytes # (Manual) 1.6 Abs React Lymphs (Man) 0.0 Monocytes # (Manual) 0.3 Eosinophils # (Manual) 0.0 Basophils # (Manual) 0.0 Metamyelocytes # 0.0 Myelocytes # 0.0 Promyelocytes # 0.0 Blast Cells # 0.0 WBC Morphology Not Reportable Hypersegmented Neuts Not Reportable Hyposegmented Neuts Not Reportable Hypogranular Neuts Not Reportable Smudge Cells Not Reportable Toxic Granulation Not Reportable Toxic Vacuolation Not Reportable Dohle Bodies Not Reportable Pelger-Huet Anomaly Not Reportable Rika Rods Not Reportable Platelet Estimate Consistent w auto Clumped Platelets Not Reportable Plt Clumps, EDTA Not Reportable Large Platelets Not Reportable Giant Platelets Not Reportable Platelet Satelliting Not Reportable Plt Morphology Comment Not Reportable RBC Morphology Normal Dimorphic RBCs Not Reportable Polychromasia Not Reportable Hypochromasia Not Reportable Poikilocytosis Not Reportable Anisocytosis Not Reportable Microcytosis Not Reportable Macrocytosis Not Reportable Spherocytes Not Reportable Pappenheimer Bodies Not Reportable Sickle Cells Not Reportable Target Cells Not Reportable Tear Drop Cells Not Reportable Ovalocytes Not Reportable Helmet Cells Not Reportable Ferreira-Stannards Bodies Not Reportable [place] Rings Not Reportable [place] Cells Not Reportable Bite Cells Not Reportable Crenated Cell Not Reportable Elliptocytes Not Reportable Acanthocytes (Spur) Not Reportable Rouleaux Not Reportable Hemoglobin C Crystals Not Reportable Schistocytes Not Reportable Malaria parasites Not Reportable Aiden Bodies Not Reportable Hem Pathologist Commnt No Blood Type O POSITIVE Antibody Screen Negative <FIDENCIORENUKA Luis Alberto - Last Filed: 12/28/19 11:49> Assessment and Plan Patient sitting chair talking on the phone, states she desires to go home, states contractions much better. Will allow home with Procardia 10mg po bid for relief of contractions. She voiced understanding and agrees with POC Objective - Vital Signs Vital Signs: Vital Signs - 12hr 12/28/19 12/28/19 12/28/19 03:35 03:48 03:52 Temperature 98.4 F Pulse Rate 93 H Respiratory 22 Rate Blood Pressure 129/71 Blood Pressure [Right] 12/28/19 09:49 Temperature 98.1 F Pulse Rate 95 H Respiratory 18 Rate Blood Pressure 117/62 Blood Pressure 117/62 [Right] - Labs Labs: Abnormal Labs 12/26/19 12/27/19 17:17 06:36 RBC 3.61 L Seg Neuts % (Manual) 73.0 H U Epithel Cells (Auto) 31.0 H
[2019-12-28] MEDS: NIFEdipine*For Tocolysis only* 10 MG CAPSULE PO SCH ×2 (08:51→11:05)
[2019-12-28] MEDS: PRENATAL VIT27-FE FUMARATE-FOLIC ACID VIT TAB PO SCH ×2 (08:51→11:05)
[2019-12-28 09:50] VITALS: BP 117/62
--- NOTE | 2019-12-28 12:17 | Discharge Summary ---
Providers - Providers Date of Admission: 12/26/19 21:05 Date of discharge: 12/28/19 (pt agrees with d/c) Attending physician: CHANA YU 12/28/19 08:40 Consult to Case Management [CONS] Urgent Services Needed at Discharge: [employer] Notified:: DAISHA [id number] Phone number called:: [phone] Additional Physician Instructions: pt would like to speak with DAISHA Primary care physician: CHANA YU Hospitalization Condition: Good Disposition: DC-01 TO HOME OR SELFCARE Core Measure Documentation - Palliative Care Palliative Care/ Comfort Measures: Not Applicable - Core Measures Any of the following diagnoses?: none - VTE Discharge Requirements Deep Vein Thrombosis/Pulmonary Embolism Present on Admission: No Has pt received <5 days of overlap therapy or INR<2.0: No Anticoagulant overlap therapy prescribed at discharge: No Contraindication No Overlap Therapy order at DC: Not Indicated - Acute MO Discharge Requirements Aspirin at discharge: No Reason for no aspirin on DC: Medical contraindication RUSTY/ARB for LVSD if EF <40%: Not Applicable Reason for no RUSTY/ARB: Medical contraindication Beta shawn at discharge: No Reason for no beta shawn on DC: Medical contraindication Statin for LDL = or >100 mg/dl on DC: Not Applicable Reason for no statin on DC: Medical contraindication - Heart Failure Discharge Requirements RUSTY/ARB for LVSD if EF <40%: Not Applicable Reason for no RUSTY/ARB: Medical contraindication Beta shawn at discharge: No Reason for no beta shawn on DC: Medical contraindication - Stroke Discharge Requirements Statin for LDL = or >70 mg/dl on DC: Not Applicable Reason for no statin on DC: Not Indicated Anticoag for atrial fib/atrial flutter: Not Applicable Reason for no anticoag for AF/F on DC: Not Indicated Antithrombotic for ischemic stroke: No Reason for no antithrombotic on DC: Not Indicated Exam - Constitutional Vitals: Temp Pulse Resp BP Pulse Ox 98.1 F 95 H 18 117/62 93 12/28/19 09:49 12/28/19 09:49 12/28/19 09:49 12/28/19 09:49 12/26/19 21:02 General appearance: Present: no acute distress, well-nourished - EENT Eyes: Present: PERRL ENT: hearing intact, clear oral mucosa - Neck Neck: Present: supple, normal ROM - Respiratory Respiratory effort: normal Respiratory: bilateral: CTA - Cardiovascular Heart Sounds: Present: S1 & S2. Absent: rub, click - Extremities Extremities: pulses symmetrical, No edema Peripheral Pulses: within normal limits - Abdominal General gastrointestinal: Present: deferred Female genitourinary: Present: normal - Integumentary Integumentary: Present: clear, warm, dry - Musculoskeletal Musculoskeletal: gait normal, strength equal bilaterally - Psychiatric Psychiatric: appropriate mood/affect, intact judgment & insight - Neurologic Neurologic: CNII-XII intact, moves all extremities Plan Activity: advance as tolerated Weight Bearing Status: Weight Bear as Tolerated Diet: advance as tolerated Care Plan Goals: mild minimal contractions Plan of Treatment: Procardia 10mg po twice a day Follow up with: CHANA YU MD [Primary Care Provider] - 01/02/20 (Keep appointment as scheduled on the Hydration take Procardia and Tylenol as directed call with any concerns [phone]) Forms: Discharge Signature Page
== END 2019-12-28 12:30 | disposition home or self-care (01) ==
LOC: TRG 15:28 → APU 15:29 → UNDOADMOB 16:36 → APU 16:36 → TRG 16:36 → LD 16:36 → APU 18:56 → TRG 21:04 → LD 21:05
PROVIDERS: ADMIT Obstetrics & Gynecology; ATTEND Obstetrics & Gynecology
DX: O60.03 Preterm labor without delivery, third trimester (principal); O09.523 Supervision of elderly multigravida, third trimester; Z3A.35 35 weeks gestation of pregnancy; Z87.891 Personal history of nicotine dependence; Z98.890 Other specified postprocedural states
CPT/HCPCS: 36415; 81001; 85025; 86592; 86850; 86900; 86901; 87529; 87806; 96361; 96372; 96374; 96376; G0378; J0595; J3105; J7120; 85007

== ENCOUNTER 2020-01-14 14:08 | Emergency (ER) | payer MEDICAID ==
[2020-01-14 14:24] VITALS: BP 124/82
[2020-01-14] MEDS ORDERED: SODIUM CHLORIDE 0.9% 1000 ML 1,000 ML IV ONE ×2 (15:41→17:28)
[2020-01-14] MEDS ORDERED: BUTALB/ACETAMINOPHEN/CAFFEINE TAB PO ONE (15:44)
--- NOTE | 2020-01-14 15:59 | Emergency Department Report ---
ED General Adult HPI - General Chief complaint: Upper Respiratory Infection Stated complaint: 38 WKS /CHEST COLD Time Seen by Provider: 01/14/20 15:35 Source: patient Mode of arrival: Ambulatory Limitations: No Limitations - History of Present Illness Initial comments: 34-year-old -Ang[place] female patient presents with complaints of cough and congestion x2 days. Patient is 38 weeks and states that she was informed to be seen in the ED by her ETHANOL OPERATIONS MANAGER. She denies any shortness of breath, hemoptysis, chest pain, fever, abdominal pain, nausea/vomiting/diarrhea, or urinary symptoms. Patient states her was recently sick with a cold that resolved after a few days. She denies any recent known sick contacts or COVID-19 contacts. Patient states the cough is dry and denies any prior medical history or swelling in her legs or arms. She also complains of a headache for which she took 1000 mg of Tylenol last night and it did not resolve. She denies any dizziness, vision changes, numbness/tingling/weakness in her limbs, syncopal episodes, confusion, or difficulty with speech/ambulation. Severity scale (0 -10): 5 - Related Data Home Medications Medication Instructions Recorded Confirmed Last Taken Omeprazole 1 tab PO DAILY 12/28/19 12/28/19 12/26/19 Allergies Allergy/AdvReac Type Severity Reaction Status Date / Time Sulfa (Sulfonamide Allergy Unknown Verified 05/30/19 08:43 Antibiotics) ED Review of Systems ROS: Stated complaint: 38 WKS /CHEST COLD Other details as noted in HPI Constitutional: chills. denies: diaphoresis, fever, malaise, weakness Respiratory: cough. denies: shortness of breath Cardiovascular: denies: chest pain Gastrointestinal: denies: abdominal pain, nausea, vomiting, diarrhea Genitourinary: denies: urgency, dysuria, frequency, hematuria Musculoskeletal: denies: back pain Neurological: headache ED Past Medical Hx - Past Medical History Previous Medical History?: Yes Hx Hypertension: No Hx Congestive Heart Failure: No Hx Diabetes: No Hx Deep Vein Thrombosis: No Hx Renal Disease: No Hx Sickle Cell Disease: No Hx Seizures: No Hx Asthma: No Hx COPD: No Hx HIV: No Additional medical history: Vaginal delivery x 3, frequent/chronic SORE THROAT - Surgical History Past Surgical History?: Yes Additional Surgical History: hernia repair x 2, endoscopy 1992 - Social History Smoking Status: Former Smoker - Medications Home Medications: Home Medications Medication Instructions Recorded Confirmed Last Taken Type Omeprazole 1 tab PO DAILY 12/28/19 12/28/19 12/26/19 History ED Physical Exam - General Limitations: No Limitations General appearance: alert, in no apparent distress - Head Head exam: Present: atraumatic, normocephalic - Eye Eye exam: Present: normal appearance, PERRL, EOMI. Absent: scleral icterus - ENT ENT exam: Present: normal exam - Neck Neck exam: Present: normal inspection - Respiratory Respiratory exam: Present: normal lung sounds bilaterally. Absent: respiratory distress, wheezes, rales, rhonchi, stridor, chest wall tenderness - Cardiovascular Cardiovascular Exam: Present: normal rhythm, tachycardia. Absent: systolic murmur, diastolic murmur, rubs, gallop - Extremities Exam Extremities exam: Present: full ROM, other (No edema noted in upper or lower extremities) - Back Exam Back exam: Present: full ROM - Neurological Exam Neurological exam: Present: alert, oriented X3, normal gait - Psychiatric Psychiatric exam: Present: normal affect, normal mood - Skin Skin exam: Present: warm, dry, intact, normal color. Absent: rash, cyanosis, diaphoretic ED Course Vital Signs 01/14/20 14:15 Temperature 99.2 F Pulse Rate 123 H Respiratory 18 Rate Blood Pressure 124/82 [Right] O2 Sat by Pulse 98 Oximetry ED Medical Decision Making - Lab Data Lab Results 01/14/20 01/14/20 01/14/20 Range/Units 16:02 16:02 16:15 WBC 6.7 (4.5-11.0) K/mm3 RBC 3.98 (3.65-5.03) M/mm3 Hgb 12.9 (10.1-14.3) gm/dl Hct 36.1 (30.3-42.9) % MCV 91 (79-97) fl MCH 32 (28-32) pg MCHC 36 H (30-34) % RDW 13.7 (13.2-15.2) % Plt Count 297 (140-440) K/mm3 Sodium 136 L (137-145) mmol/L Potassium 4.1 (3.6-5.0) mmol/L Chloride 99.0 (98-107) mmol/L Carbon Dioxide 19 L (22-30) mmol/L Anion Gap 22 mmol/L BUN 6 L (7-17) mg/dL Creatinine 0.7 (0.6-1.2) mg/dL Estimated GFR > 60 ml/min BUN/Creatinine Ratio 9 % Glucose 111 H (65-100) mg/dL Calcium 9.7 (8.4-10.2) mg/dL Total Bilirubin 0.30 (0.1-1.2) mg/dL AST 20 (5-40) units/L ALT 15 (7-56) units/L Alkaline Phosphatase 193 H (35-129) units/L Total Protein 7.3 (6.3-8.2) g/dL Albumin 3.6 L (3.9-5) g/dL Albumin/Globulin Ratio 1.0 % Urine Color Yellow (Yellow) Urine Turbidity Slightly-cloudy (Clear) Urine pH 6.0 (5.0-7.0) Ur Specific [place] 1.029 (1.003-1.030) Urine Protein 30 mg/dl (Negative) mg/dL Urine Glucose (UA) Neg (Negative) mg/dL Urine Ketones Tr (Negative) mg/dL Urine Blood Neg (Negative) Urine Nitrite Neg (Negative) Urine Bilirubin Neg (Negative) Urine Urobilinogen 4.0 (<2.0) mg/dL Ur Leukocyte Esterase Neg (Negative) Urine WBC (Auto) 2.0 (0.0-6.0) /HPF Urine RBC (Auto) 3.0 (0.0-6.0) /HPF U Epithel Cells (Auto) 23.0 H (0-13.0) /HPF Urine Mucus 2+ /HPF - Radiology Data Radiology results: report reviewed CHEST 2 VIEWS INDICATION / CLINICAL INFORMATION: MAIN. Cough flu symptoms. COMPARISON: 04/06/2016 FINDINGS: SUPPORT DEVICES: None. HEART / MEDIASTINUM: No significant abnormality. LUNGS / PLEURA: No significant pulmonary or pleural abnormality. No pneumothorax. ADDITIONAL FINDINGS: No significant additional findings. Abdominal shielding was used. IMPRESSION: 1. No acute findings. - Medical Decision Making 34-year-old -Ang[place] female patient presents with complaints of cough and congestion x2 days. Patient is 38 weeks and states that she was informed to be seen in the ED by her ETHANOL OPERATIONS MANAGER. She denies any shortness of breath, hemoptysis, chest pain, fever, abdominal pain, nausea/vomiting/diarrhea, or urinary symptoms. Patient states her was recently sick with a cold that resolved after a few days. She denies any recent known sick contacts or COVID-19 contacts. Patient states the cough is dry and denies any prior medical history or swelling in her legs or arms. She also complains of a headache for which she took 1000 mg of Tylenol last night and it did not resolve. She denies any dizziness, vision changes, numbness/tingling/weakness in her limbs, syncopal episodes, confusion, or difficulty with speech/ambulation. Lungs are clear to auscultation bilaterally on exam. Heart rate noted to be 122. CBC shows normal white count. CMP shows anion gap of 22. Chest x-ray is normal. Patient given 1 L of saline and Fioricet. She states her headache has resolved. Heart rate is now..... Patient is well-appearing, her vitals are normal, she is stable for discharge home. Recommend outpatient COVID-19 testing-patient provided with COVID testing facility sheet. Patient to follow- up with her PCP and ETHANOL OPERATIONS MANAGER. Strict return precautions were discussed in detail with patient verbalized understanding Critical care attestation.: If time is entered above; I have spent that time in minutes in the direct care of this critically ill patient, excluding procedure time. ED Disposition Clinical Impression: Viral URI with cough, Dehydration Acute headache Qualifiers: Headache type: tension-type Intractability: not intractable Qualified Code(s): G44.209 - Tension-type headache, unspecified, not intractable Disposition: DC-01 TO HOME OR SELFCARE Is pt being admited?: No Condition: Stable Instructions: Upper Respiratory Infection (ED), Acute Headache (ED), Dehydration (ED) Referrals: PRIMARY CARE, [Primary Care Provider] - 3-5 Days
--- NOTE | 2020-01-14 16:10 | XRay Report ---
CHEST 2 VIEWS INDICATION / CLINICAL INFORMATION: MAIN. Cough flu symptoms. COMPARISON: 04/06/2016 FINDINGS: SUPPORT DEVICES: None. HEART / MEDIASTINUM: No significant abnormality. LUNGS / PLEURA: No significant pulmonary or pleural abnormality. No pneumothorax. ADDITIONAL FINDINGS: No significant additional findings. Abdominal shielding was used. IMPRESSION: 1. No acute findings. Signer Name: Jose Kingston MD Signed: 01/14/2020 4:05 PM Workstation Name: [id number]
[2020-01-14 16:24] LABS: Hematocrit 36.1 % (30.3-42.9); Hemoglobin 12.9 gm/dl (10.1-14.3); Mean Corpuscular HGB Conc 36 % (30-34); Mean Corpuscular Volume 91 fl (79-97); Platelet Count 297 K/mm3 (140-440); Red Blood Count 3.98 M/mm3 (3.65-5.03); Red Cell Distribution Width 13.7 % (13.2-15.2)
[2020-01-14 16:37] LABS: Alanine Aminotransferase 15 units/L (7-56); Albumin 3.6 g/dL (3.9-5); Blood Urea Nitrogen 6 mg/dL (7-17); Calcium 9.7 mg/dL (8.4-10.2); Hemolysis Index 4
[2020-01-14 16:43] LABS: Bilirubin,Urine NEG (Negative); Blood,Urine NEG (Negative); Color,Urine Yellow (Yellow); Mucus,Urine 2+ /HPF
[2020-01-14 16:45] LABS: BUN/Creatinine Ratio 9
[2020-01-14 17:48] LABS: RBC Morphology Normal; Total Cells Counted 100
== END 2020-01-14 18:29 | disposition home or self-care (01) ==
LOC: ED 14:08
DX: O99.513 Diseases of the respiratory system complicating pregnancy, third trimester (principal); J06.9 Acute upper respiratory infection, unspecified; O29.43 Spinal and epidural anesthesia induced headache during pregnancy, third trimester; Z98.890 Other specified postprocedural states; Z87.891 Personal history of nicotine dependence; Z79.899 Other long term (current) drug therapy; Z88.2 Allergy status to sulfonamides; Z3A.38 38 weeks gestation of pregnancy
CPT/HCPCS: 36415; 71046; 80053; 81001; 85007; 85025; 96360; 96361; 99284; J7030

== ENCOUNTER 2020-01-18 10:03 | Inpatient (IN) | payer MEDICAID ==
[2020-01-18] MEDS ORDERED: LACTATED RINGERS 1,000 ML ONE (10:12)
[2020-01-18] MEDS ORDERED: ACETAMINOPHEN 325 MG TAB PO PRN (10:17)
[2020-01-18] MEDS ORDERED: miSOPROStol 200 MCG TAB PR PRN (10:17)
[2020-01-18] MEDS ORDERED: fentaNYL 100 MCG/2 ML INJ IV PRN (10:17)
[2020-01-18] MEDS ORDERED: MINERAL OIL 30 ML ORAL LIQD PO PRN (10:17)
[2020-01-18] MEDS ORDERED: NALOXONE 0.4 MG/1 ML INJ IV PRN (10:17)
[2020-01-18] MEDS ORDERED: LOPERAMIDE 2 MG CAP PO PRN (10:17)
[2020-01-18] MEDS ORDERED: CARBOPROST TROMETHAMINE 250 MCG/1 ML INJ IM PRN (10:17)
[2020-01-18] MEDS ORDERED: OXYTOCIN 10 UNIT/1 ML INJ IM PRN (10:17)
[2020-01-18] MEDS ORDERED: PROMETHAZINE 25 MG TAB PO PRN ×2 (10:17→14:53)
[2020-01-18] MEDS ORDERED: ONDANSETRON 4 MG/2 ML INJ IV PRN ×2 (10:17→14:53)
[2020-01-18] MEDS ORDERED: TERBUTALINE 1 MG/1 ML INJ SUB-Q PRN (10:17)
[2020-01-18] MEDS ORDERED: ePHEDrine SULFATE 50 MG/1 ML INJ IV PRN (10:17)
--- NOTE | 2020-01-18 10:28 | History and Physical Report ---
History of Present Illness Date of examination: 01/18/20 (Pt in labor) Date of admission: 01/18/2020 Chief complaint: I've been caitlyn and now I'm feeling a lot of vaginal pressure. History of present illness: Pt with known CHF after delivery in 2005. She has been followed by [facility] d/t AMA and CHF. She has a visit with [facility] and per pt has to schedule a follow up after delivery. Also pt is COVID-19 positive. States that she was contacted today by the urgent care that she went to that she had a positive result. Past History : 7 Term Births: 4 Premature Births: 0 Living Children: 4 Para: 4 Mult. Births: 0 Prev : 0 Aborta: 2 Elect. Ab: 1 Spont. Ab: 1 Ectopics: 0 # 1 Delivery date: 02/02/2003 Weeks Gestation: 39 labor: no Delivery type: Hours of labor: 16 Anesthesia type: epidural Delivery location: [place] Sex: Male weight: 7-3 Name: Panda # 2 Delivery date: 05/17/2005 Weeks Gestation: 39 labor: no Delivery type: Hours of labor: 16 Anesthesia type: epidural [place] [facility] [place] Female weight: 7-8 Name: Charlotte Comments: HTN/ CHF # 3 Delivery date: 11/2007 Weeks Gestation: 39 Delivery type: Anesthesia type: epidural weight: ? Comments: Infant was placed for adoption # 4 Delivery date: 2008 Delivery type: EAB # 5 Delivery date: 04/09/2012 Weeks Gestation: 38 labor: no Delivery type: Hours of labor: 12 Anesthesia type: none Delivery location: [facility] Sex: Male weight: 7-12 Name: Arian # 6 Delivery date: 2018 Weeks Gestation: SAB Delivery type: SAB Comments: No D&C Risk Factors: Smoked Tobacco Use: Former smoker Cigarettes: Yes Years smoked: 15 Year quit: 2016 Years Since Last Quit: 4 Smokeless Tobacco Use: Never Passive smoke exposure: no Drug use: no HIV high-risk behavior: no Alcohol use: no Exercise: no Seatbelt use: 100 % Past Medical History: Allergies-seasonal G E R D Past Surgical History: Bilateral inguinal hernia repairs D&C: (2008) J[place] Family History Summary: Other Family Member - Has No Family History of Ovarvian Cancer - Entered On: 08/29/2019 Other Family Member - Has No Family History of Colon Cancer - Entered On: 08/29/2019 Other Family Member - Has No Family History of Breast Cancer - Entered On: 08/29/2019 Other Family Member - Has Family History of Hypertension - Entered On: 08/29/2019 Other Family Member - Has Family History of Diabetes - Entered On: 08/29/2019 Other Family Member - Has Family History of Coronary Heart Disease - Entered On: 08/29/2019 Social History: Marital Status: Children: 3 Occupation: [employer] Smoking History: Patient has never smoked. Past Medical History Surgery (Non-body and fender mechanic): Bilateral inguinal hernia repairs D&C: (2008) EAB Abnormal PAP: negative Infertility: negative Uterine Anomaly: negative Social Hx: Marital Status: Children: 3 Occupation: [employer] Smoking History: Patient has never smoked. Infection History Hx of STD: none HIV Risk Eval: no Personal hx. of genital herpes: no Genetic History ADVANCED MATERNAL AGE Congenital Heart Defect: Mom: no Dad: no Marc Disease: Mom: no Dad: no Thalassemia Mom: no Dad: no Neural Tube Defect Mom: no Dad: no Down's Syndrome Mom: no Dad: no Eder-Sachs Mom: no Dad: no Sickle Cell Disease/Trait Mom: no Dad: no Hemophilia Mom: no Dad: no Muscular Dystrophy Mom: no Dad: no Cystic Fibrosis Mom: no Dad: no Boyle Chorea Mom: no Dad: no Mental Retardation Mom: no Dad: no Fragile X Mom: no Dad: no Other Genetic/Chromosomal Disorder Mom: no Dad: no Child w/other defect Mom: no Dad: no Active Medications (reviewed today): None Current Allergies (reviewed today): * SULFUR (Critical) Past History Past Medical History: heart disease (After delivery in 2005) Past Surgical History: no surgical history Social history: no significant social history - Obstetrical History Expected Date of Delivery: 01/30/20 Actual Gestation: 38 Week(s) 2 Day(s) : 7 Para: 4 Hx # Term Pregnancies: 4 Number of Pregnancies: 0 Spontaneous Abortions: 1 Induced : 1 Number of Living Children: 4 Medications and Allergies Allergies Allergy/AdvReac Type Severity Reaction Status Date / Time Sulfa (Sulfonamide Allergy Unknown Verified 05/30/19 08:43 Antibiotics) Home Medications Medication Instructions Recorded Confirmed Last Taken Type Omeprazole 1 tab PO DAILY 12/28/19 12/28/19 12/26/19 History Review of Systems All systems: negative - Physical Exam Breasts: Positive: deferred Cardiovascular: Regular rate Lungs: Positive: Normal air movement Abdomen: Positive: normal appearance, soft Genitourinary (Female): Positive: normal external genitalia, normal perenium Vulva: both: normal Vagina: Positive: normal moisture. Negative: discharge Cervix: Negative: lesion, discharge Uterus: Positive: normal size, normal contour Adnexa: both: normal Anus/Rectum: Positive: normal perianal skin, heme negative. Negative: rectal mass, hemorrhoids Extremities: Positive: normal Deep Tendon Reflex Grade: Normal +2 - Obstetrical FHR: auscultation normal, category 1 Uterine Contraction Monitor Mode: External Cervical Dilatation: 5 Cervical Effacement Percentage: 70 station: -1 Uterine Contraction Pattern: Regular Uterine Tone Measurement Phase: Resting Uterine Contraction Intensity: Moderate Results Result Diagrams: 01/18/20 10:27 All other labs normal. GBS NEGATIVE HBsAg Screen Negative Negative *1 RPR Non Reactive Non Reactive *2 Rubella Antibodies, IgG 3.05 index Immune >0.99 *3 Non-immune <0.90 Equivocal 0.90 - 0.99 Immune >0.99 ABO Grouping O *4 Rh Factor Positive *5 Please note: Prior records for this patient's ABO / Rh type are not available for additional verification. Antibody Screen Negative Negative *6 WBC 9.8 x10E3/uL 3.4-10.8 *7 RBC 3.83 x10E6/uL 3.77-5.28 *8 Hemoglobin 11.5 g/dL 11.1-15.9 *9 Hematocrit 35.7 % 34.0-46.6 *10 MCV 93 fL 79-97 *11 MCH 30.0 pg 26.6-33.0 *12 MCHC 32.2 g/dL 31.5-35.7 *13 RDW 13.7 % 11.7-15.4 *14 Platelets 283 x10E3/uL 150-450 *15 Neutrophils 71 % Not Estab. *16 Lymphs 19 % Not Estab. *17 Monocytes 4 % Not Estab. *18 Eos 1 % Not Estab. *19 Basos 0 % Not Estab. *20 ! Immature Cells <No Reported Value> *21 Neutrophils (Absolute) 7.0 x10E3/uL 1.4-7.0 *22 Lymphs (Absolute) 1.8 x10E3/uL 0.7-3.1 *23 Monocytes(Absolute) 0.4 x10E3/uL 0.1-0.9 *24 Eos (Absolute) 0.1 x10E3/uL 0.0-0.4 *25 Baso (Absolute) 0.0 x10E3/uL 0.0-0.2 *26 ! Immature Granulocytes 5 % Not Estab. *27 ! Immature Grans (Abs) [H] 0.5 x10E3/uL 0.0-0.1 *28 (An elevated percentage of Immature Granulocytes has not been found to be clinically significant as a sole clinical predictor of disease. Does NOT include bands or blast cells. associated physiological leukocytosis may also show increased immature granulocytes without clinical significance.) ! NRBC <No Reported Value> *29 Hematology Comments: <No Reported Value> *30 Tests: (2) AFP Tetra ([id number]) ! Results Report *31 ! Test Results: *Screen Negative* *32 ! Gest. Age on Collection Date 19.0 WEEKS *33 ! Gestat. Age Based On Ultrasound *34 19.0 on 09/05/2019 ! M[age] WILLIAM [age] *35 ! Race Black *36 ! Weight 196 lbs *37 ! Insulin Dep Diabetes No *38 ! Multiple Gestation No *39 ! AFP Value 49.9 ng/mL *40 ! AFP MoM 1.10 *41 ! hCG Value 99583 mIU/mL *42 ! hCG MoM 1.57 *43 ! uE3 Value 1.25 ng/mL *44 ! uE3 MoM 0.78 *45 ! GEM Value 116.17 pg/mL *46 ! GEM MoM 0.77 *47 ! [place]BR [place] 1 [place] [address] *48 ! DSR (Second Trimester) 1 IN 1449 *49 ! DSR (By Age) 1 IN 244 *50 ! T18 Risk Not increased *51 ! T18 (By Age) 1:951 *52 ! Interpretation NL42 *53 Interpretation: Screen Negative This result is screen negative for OSB, Down Syndrome and Trisomy 18. The AFP MoM and patient specific risks calculated are based on the gestational age and the clinical information provided. This test can identify up to 80% of open neural tube defects. Closed neural tube defects and some open defects may not be detected by this test. The combination of maternal age, AFP, hCG, uE3, and GEM identifies 75-80% of Down Syndrome. The combination of maternal age, AFP, hCG and uE3 identifies 60% of Trisomy 18 pregnancies. The [employer] recommends amniocentesis be offered to women age 35 and older. Recalculations are not recommended when gestational dating by LMP and ultrasound are within 10 days. ! Comments: SPR *54 Chey Maxwell, Ph.D., [facility] Principal Genetics Security Management Specialist References: Available Upon Request. Multiples Of Median Cutoffs Abbreviation Definitions For AFP Elevations IDD- Insulin Dep Diabetes Jaramillo 2.5 Black 2.8 OSBR- Open Spina Bifida IDD 2.0 Twins 4.5 Risk DSR Cutoff 1:270 DSR- Down Syndrome Risk T18 Cutoff 1:100 T18- Trisomy 18 Down Syndrome and Trisomy 18 screening are considered Investigational For further inquiries contact [employer] at [phone]. Tests: (3) HB Solu + Rflx Fra ([id number]) Hemoglobin (Hgb) Solubility Negative Negative *55 Tests: (4) HIV Ag/Ab with Reflex ([id number]) HIV Screen 4th Generation wRfx Non Reactive Non Reactive *56 Tests: (5) HCV Ab w/Rflx to Verification ([id number]) ! HCV Ab <0.1 s/co ratio 0.0-0.9 *57 Tests: (6) Comment: ([id number]) ! Comment: SPR *58 Non reactive HCV antibody screen is consistent with no HCV infection, unless recent infection is suspected or other evidence exists to indicate HCV infection. Tests: (7) Urine Culture, Routine ([id number]) Urine Culture, Routine Final report *59 Tests: (8) Result ([id number]) ! Result 1 MUG *60 Mixed urogenital elvie 25,000-50,000 colony forming units per mL Assessment and Plan Pt is a 34 y.o. @ 38.2 wks in labor, cervical exam 1. Has hx of CHF after deliver in 2005. Also COVID-19 positive. Will admit to labor and delivery. Initiate IV for pain medication. Discussed pt with anesthesia, d/t hx of CHF, will only do 500ml bolus for epidural placement. Will continue to observe pt to see if she becomes symptomatic d/t COVID. - Patient Problems (1) 38 to 41 weeks gestation of Onset Date: ~01/16/20 Current Visit: Yes Status: Acute Plan to address problem: Monitor status during labor by EFM. (2) Cardiovascular disease of mother in Onset Date: ~01/18/20 Current Visit: Yes Status: Acute Qualifiers: Trimester: unspecified trimester Qualified Code(s): O99.419 - Diseases of the circulatory system complicating , unspecified trimester; I25.10 - Atherosclerotic heart disease of [place] coronary artery without angina pectoris Plan to address problem: Will closely monitor blood pressures during admission. Only a 500ml fluid bolus for epidural placement. Anesthesia to come and assess pt. (3) Coronavirus infection Onset Date: ~01/14/20 Current Visit: Yes Status: Acute Plan to address problem: Will monitor pt for worsening symptoms of COVID-19. Consult infectious disease as needed.
[2020-01-18 10:38] LABS: Hematocrit 35.6 % (30.3-42.9); Hemoglobin 12.6 gm/dl (10.1-14.3); Mean Corpuscular HGB Conc 35 % (30-34); Mean Corpuscular Volume 90 fl (79-97); Platelet Count 251 K/mm3 (140-440); Red Blood Count 3.98 M/mm3 (3.65-5.03); Red Cell Distribution Width 13.7 % (13.2-15.2)
[2020-01-18] MEDS ORDERED: LACTATED RINGERS 1,000 ML IV SCH (11:00)
[2020-01-18] MEDS ORDERED: OXYTOCIN DRIP 30 UNITS/500 ML BAG IV SCH ×3 (11:00→15:00)
[2020-01-18] MEDS ORDERED: LIDOCAINE (2%) 20 MG/1 ML VIAL 20 ML MDV INFILTRATI ONE (11:00)
[2020-01-18] MEDS ORDERED: DEXMEDETOMIDINE 200 MCG/2 ML VIAL IV ONE (13:07)
--- NOTE | 2020-01-18 14:24 | Anesthesia Consultation ---
Anesthesia Consult and Med Hx Date of service: 01/18/20 - Airway Anesthetic Teeth Evaluation: Good ROM Head & Neck: Adequate Mental/Hyoid Distance: Adequate Mallampati Class: Class II Intubation Access Assessment: Probably Good - Pulmonary Exam CTA: Yes - Cardiac Exam Cardiac Exam: RRR - Pre-Operative Health Status ASA Pre-Surgery Classification: ASA2 Proposed Anesthetic Plan: Epidural - Pulmonary Hx Smoking: No Hx Asthma: No Hx Respiratory Symptoms: No SOB: No (hx of CHF 2015 ) COPD: No Home Oxygen Therapy: No Hx Pneumonia: No Hx Sleep Apnea: No - Cardiovascular System Hx Hypertension: No Hx Coronary Artery Disease: No Hx Heart Attack/AMI: No Hx Angina: No Hx Percutaneous Transluminal Coronary Angioplasty (PTCA): No Hx Cardia Arrhythmia: No Hx Pacemaker: No Hx Internal Defibrillator: No Hx Valvular Heart Disease: No Hx Heart Murmur: No Hx Peripheral Vascular Disease: No - Central Nervous System Hx Neuromuscular Disorder: No Hx Seizures: No CVA: No Hx Back Pain: No Hx Psychiatric Problems: No - Gastrointestinal Hx Ulcer: No Hx Gastroesophageal Reflux Disease: Yes - Endocrine Hx Renal Disease: No Hx End Stage Renal Disease: No Hx Cirrhosis: No Hx Liver Disease: No Hx Insulin Dependent Diabetes: No Hx Non-Insulin Dependent Diabetes: No Hx Thyroid Disease: No Hx Hypothyroidism: No Hx Hyperthyroidism: No - Hematic Hx Anemia: No Hx Sickle Cell Disease: No - Other Systems Hx Alcohol Use: No Hx Substance Use: No Hx Cancer: No Hx Obesity: Yes
--- NOTE | 2020-01-18 14:28 | Progress Note ---
Labor Epidural - Labor Epidural Start Time: 13:24 Stop Time: 13:36 Performed by:: JOYCE STRANGE Procedure: Patient is requesting a laboring epidural for laboring pain. Patient IDed, H&P reviewed, all questions and concerns were answered, and consent was signed. Timeout was performed at bedside. Patient in sitting position. Sterile prep and drape was performed. [3] ml of 1% lidocaine skin wheal at L[4]- L [5]. 18- gauge Tuohy epidural needle was advanced to loss of resistance with air technique to 5cm. Negative CSF negative blood via Tuohy needle. #27g Spinal needle clear, free flowing CSF, Pecedex 10 mcg. Epidural catheter advanced to [10] centimeters. [negative] Aspiration [negative] test dose. Sterile dressing applied. Patient tolerated procedure.
--- NOTE | 2020-01-18 14:38 | Post Anesthesia Evaluation ---
- Post Anesthesia Evaluation Patient Participated: Yes Airway Patent: Yes Stable Respiratory Function: Yes Nausea/Vomiting: No Temp > 96.8F: Yes Pain Manageable: Yes Adequeate Hydration: Yes Anesthesia Complications: No Block Receding Appropriately: Yes Patient on Ventilator: No
--- NOTE | 2020-01-18 14:48 | Procedure Note ---
OB Delivery Note - Delivery Date of Delivery: 01/18/20 Evaporator Operator Molasses: MARTHA CRYSTAL Estimated blood loss: 300cc - Vaginal Delivery presentation: vertex Delivery position: OA Intrapartum events: other(please specify) (COVID-19 +, Unknown time of Rupture) Delivery induction: none Delivery augmentation: pitocin Delivery monitor: external FHT, external uterine Route of delivery: Delivery placenta: spontaneous Delivery cord: 3 umbilical vessels Episiotomy: none Delivery laceration: 1st degree (Hemostatic no repair needed) Anesthesia: epidural Delivery comments: of live male over 1st degree laceration 6lbs12.5oz and APGARs 8/9. Delivered OA, no nuchal cord. Body delivered without difficulty. Cord Clamped and cut after cessation of pulse. Baby handed to nurse. Placenta delivered spontaneously, intact. Fundus firm minimal bleeding. Placenta appears intact with 3 vessel cord. Perineum and vaginal inspected small 1st degree perineal laceration without repair hemostatic. EBL 300cc No complications during procedure, Mom and baby stable recovering in LDR. U. MADI Dawson
[2020-01-18] MEDS ORDERED: WITCH HAZEL/ GLYCERIN PAD TP PRN (14:53)
[2020-01-18] MEDS ORDERED: MAGNESIUM HYDROXIDE (MOM) ORAL LIQD UDC PO PRN (14:53)
[2020-01-18] MEDS ORDERED: LANOLIN/ZINC/DIMETHICONE (LANSINOH) 7 GM TP PRN (14:53)
[2020-01-18] MEDS ORDERED: BENZOCAINE/MENTHOL 20/0.5% TOP SPRAY 56 GM TP PRN (14:53)
[2020-01-18] MEDS ORDERED: diphenhydrAMINE 25 MG CAP PO PRN (14:53)
[2020-01-18] MEDS: ACETAMINOPHEN 500 MG TAB PO PRN (16:39)
--- NOTE | 2020-01-18 19:05 | Event Note ---
Date: 01/18/20 (Pt with fever and tachycardia) Received a call from RN stating that pt has a temp of 102.6. Also pt with tachycardia at 110'2-140's. Pt denies shortness of breath or chest pain. She just "feel like I have a chest cold." Lung sounds clear, expect diminished in the bases. Consulted with Dr. Zuñiga. Plan to order chest x-ray, ID consult, and an EKG.
--- NOTE | 2020-01-18 19:37 | Event Note ---
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 Parks. Per Dr. Parks, safe to transfer to mother baby, and put pt in an isolation room. Per Dr. Parks, if pt's O2 sat drops below 94%, then given her a call back. She was made aware of patient's current tachycardia, fever and had no new orders to add. Pt at this time continues to deny chest pain, shortness of breath. States that she feels feverish, but otherwise feels okay.
--- NOTE | 2020-01-18 19:56 | XRay Report ---
CHEST 1 VIEW INDICATION / CLINICAL INFORMATION: Pt is COVID-19 positive with symptoms.. Dyspnea. FINDINGS: SUPPORT DEVICES: None. HEART / MEDIASTINUM: No significant abnormality. LUNGS / PLEURA: No significant pulmonary or pleural abnormality. No pneumothorax. ADDITIONAL FINDINGS: No significant additional findings. IMPRESSION: 1. No acute findings. Signer Name: Juan Carlos Baker MD Signed: 01/18/2020 7:51 PM Workstation Name: [id number]
[2020-01-18] MEDS ORDERED: FLUTICASONE PROPIONATE NASAL SPRAY 16 GM NS PRN (21:57)
[2020-01-19] MEDS: IBUPROFEN 800 MG TAB PO SCH ×5 (01:26→18:50)
[2020-01-19] MEDS: DOCUSATE SODIUM 100 MG CAP PO SCH ×3 (01:27→21:10)
[2020-01-19] MEDS: ACETAMINOPHEN 500 MG TAB PO PRN (04:11)
[2020-01-19] MEDS ORDERED: DIPHtheria,PERTUSSIS(ACELL),TETANUS VACCINE/PF 0.5 ML VIAL IM ONE (06:00)
[2020-01-19 06:11] LABS: Hematocrit 33.2 % (30.3-42.9); Hemoglobin 11.3 gm/dl (10.1-14.3)
--- NOTE | 2020-01-19 10:13 | Progress Note ---
Assessment and Plan A: 34 y.o. s/p @ term, COVID 19 positive. Tachycardia improved. Afebrile this AM. P: Continue with care. Continue to monitor vital signs. Awaiting ID evaluation. If remains abebrile, anticipate discharge home. - Patient Problems (1) 38 to 41 weeks gestation of Onset Date: ~01/16/20 Current Visit: Yes Status: Resolved (2) Cardiovascular disease of mother in Onset Date: ~01/18/20 Current Visit: Yes Status: Acute Qualifiers: Trimester: unspecified trimester Qualified Code(s): O99.419 - Diseases of the circulatory system complicating , unspecified trimester; I25.10 - Atherosclerotic heart disease of [place] coronary artery without angina pectoris Plan to address problem: Observing blood pressures and I&O's. (3) Coronavirus infection Onset Date: ~01/14/20 Current Visit: Yes Status: Acute Plan to address problem: Consult to ID ordered. Awaiting evaluation. Subjective - Subjective Date of service: 01/19/20 (Pt states feeling much better today.) Principal diagnosis: s/p @ term, COVID Positive, tachycardia, fever Interval history: Pt with known CHF after delivery in 2005. She has been followed by [facility] d/t AMA and CHF. She has a visit with [facility] and per pt has to schedule a follow up after delivery. Also pt is COVID-19 positive. States that she was contacted today by the urgent care that she went to that she had a positive result. Past History : 7 Term Births: 4 Premature Births: 0 Living Children: 4 Para: 4 Mult. Births: 0 Prev : 0 Aborta: 2 Elect. Ab: 1 Spont. Ab: 1 Ectopics: 0 # 1 Delivery date: 02/02/2003 Weeks Gestation: 39 labor: no Delivery type: Hours of labor: 16 Anesthesia type: epidural Delivery location: [place] [facility] Sex: Male weight: 7-3 Name: Panda # 2 Delivery date: 05/17/2005 Weeks Gestation: 39 labor: no Delivery type: Hours of labor: 16 Anesthesia type: epidural Delivery location: [facility] [place] Infant Sex: Female weight: 7-8 Name: Charlotte Comments: HTN/ CHF # 3 Delivery date: 11/2007 Weeks Gestation: 39 Delivery type: Anesthesia type: epidural weight: ? Comments: was placed for adoption # 4 Delivery date: 2008 Delivery type: EAB # 5 Delivery date: 04/09/2012 Weeks Gestation: 38 labor: no Delivery type: Hours of labor: 12 Anesthesia type: none Delivery location: [facility] Sex: Male weight: 7-12 Name: Arian # 6 Delivery date: 2018 Weeks Gestation: SAB Delivery type: SAB Comments: No D&C Risk Factors: Smoked Tobacco Use: Former smoker Cigarettes: Yes Years smoked: 15 Year quit: 2016 Years Since Last Quit: 4 Smokeless Tobacco Use: Never Passive smoke exposure: no Drug use: no HIV high-risk behavior: no Alcohol use: no Exercise: no Seatbelt use: 100 % Past Medical History: Allergies-seasonal G E R D Past Surgical History: Bilateral inguinal hernia repairs D&C: (2008) EAB Family History Summary: Other Family Member - Has No Family History of Ovarvian Cancer - Entered On: 08/29/2019 Other Family Member - Has No Family History of Colon Cancer - Entered On: 08/29/2019 Other Family Member - Has No Family History of Breast Cancer - Entered On: 08/29/2019 Other Family Member - Has Family History of Hypertension - Entered On: 08/29/2019 Other Family Member - Has Family History of Diabetes - Entered On: 08/29/2019 Other Family Member - Has Family History of Coronary Heart Disease - Entered On: 08/29/2019 Social History: Marital Status: Children: 3 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 Infection History Hx of STD: none HIV Risk Eval: no Personal hx. of genital herpes: no Genetic History ADVANCED MATERNAL AGE Congenital Heart Defect: Mom: no Dad: no Marc Disease: Mom: no Dad: no Thalassemia Mom: no Dad: no Neural Tube Defect Mom: no Dad: no Down's Syndrome Mom: no Dad: no Eder-Sachs Mom: no Dad: no Sickle Cell Disease/Trait Mom: no Dad: no Hemophilia Mom: no Dad: no Muscular Dystrophy Mom: no Dad: no Cystic Fibrosis Mom: no Dad: no Serafin Chorea Mom: no Dad: no Mental Retardation Mom: no Dad: no Fragile X Mom: no Dad: no Other Genetic/Chromosomal Disorder Mom: no Dad: no Child w/other defect Mom: no Dad: no Active Medications (reviewed today): None Current Allergies (reviewed today): * SULFUR (Critical) Patient reports: appetite normal, voiding normally, pain well controlled, flatu s, ambulating normally Josephine: doing well Objective - Vital Signs Latest vital signs: Vital Signs Temp Pulse Resp BP Pulse Ox 01/19/20 08:49 96.8 F L 18 122/79 01/19/20 04:11 20 01/19/20 02:51 100.8 F H 103 H 18 105/56 97 01/19/20 02:04 100.1 F H 98 01/19/20 01:26 20 01/18/20 20:50 99.2 F 115 H 20 124/78 97 01/18/20 20:30 99 F 18 01/18/20 20:22 114 H 122/71 97 01/18/20 20:07 113 H 121/68 01/18/20 19:47 122 H 124/70 01/18/20 19:26 116 H 98 01/18/20 19:22 122 H 122/66 94 01/18/20 19:21 121 H 97 01/18/20 19:16 124 H 97 01/18/20 19:11 123 H 98 01/18/20 19:06 125 H 98 01/18/20 19:01 136 H 98 01/18/20 18:56 128 H 99 01/18/20 18:42 128 H 98 01/18/20 18:37 128 H 126/68 99 01/18/20 18:32 124 H 98 01/18/20 18:27 125 H 98 01/18/20 18:22 129 H 119/62 98 01/18/20 18:17 130 H 98 01/18/20 18:12 128 H 98 01/18/20 18:07 129 H 130/70 98 01/18/20 18:02 129 H 98 01/18/20 17:57 142 H 98 01/18/20 17:52 130 H 139/76 98 01/18/20 17:47 119 H 97 01/18/20 17:42 119 H 99 01/18/20 17:41 102.6 F H 16 01/18/20 17:37 122 H 142/78 99 01/18/20 17:32 135 H 96 01/18/20 17:27 124 H 95 01/18/20 17:26 122 H 94 01/18/20 17:22 119 H 120/74 94 01/18/20 17:17 119 H 94 01/18/20 17:15 119 H 94 01/18/20 17:12 121 H 96 01/18/20 17:07 117 H 120/76 97 01/18/20 17:02 112 H 97 01/18/20 16:57 121 H 98 01/18/20 16:53 100.6 F H 01/18/20 16:52 117 H 99 01/18/20 16:41 126 H 99 01/18/20 16:37 110 H 123/79 01/18/20 16:36 116 H 98 01/18/20 16:31 117 H 98 01/18/20 16:26 118 H 99 01/18/20 16:22 112 H 119/69 01/18/20 16:21 114 H 98 01/18/20 16:16 112 H 98 01/18/20 16:11 115 H 99 01/18/20 16:07 117 H 118/67 01/18/20 16:06 118 H 98 01/18/20 16:01 113 H 98 01/18/20 15:56 111 H 98 01/18/20 15:52 104 H 136/78 01/18/20 15:51 109 H 99 01/18/20 15:46 110 H 98 01/18/20 15:41 115 H 99 01/18/20 15:37 115 H 122/77 01/18/20 15:36 111 H 98 01/18/20 15:31 119 H 98 01/18/20 15:26 118 H 99 01/18/20 15:22 109 H 117/75 01/18/20 15:21 110 H 100 01/18/20 15:16 98 H 100 01/18/20 15:11 103 H 100 01/18/20 15:06 99 H 114/67 100 01/18/20 15:03 102 H 112/63 01/18/20 15:01 110 H 100 01/18/20 15:00 99 H 108/60 01/18/20 14:58 105 H 116/64 01/18/20 14:56 105 H 100 01/18/20 14:52 123 H 134/78 01/18/20 14:51 123 H 100 01/18/20 14:49 85 111/77 01/18/20 14:46 107 H 111/83 100 01/18/20 14:43 115 H 93 01/18/20 14:41 109 H 100 01/18/20 14:39 100 H 111/63 01/18/20 14:36 105 H 108/64 100 01/18/20 14:33 100 H 105/60 01/18/20 14:31 102 H 100 01/18/20 14:30 101 H 106/60 01/18/20 14:27 106 H 107/55 01/18/20 14:26 102 H 100 01/18/20 14:24 110 H 103/59 01/18/20 14:21 107 H 113/59 100 01/18/20 14:19 99.6 F 20 100 01/18/20 14:18 105 H 109/56 01/18/20 14:16 114 H 100 01/18/20 14:15 112 H 113/58 01/18/20 14:12 110 H 110/61 01/18/20 14:11 105 H 100 01/18/20 14:09 111 H 112/64 01/18/20 14:06 111 H 111/64 100 01/18/20 14:03 123 H 106/61 01/18/20 14:01 120 H 100 01/18/20 14:00 113 H 121/66 01/18/20 13:57 99 H 117/63 01/18/20 13:56 108 H 99 01/18/20 13:54 113 H 113/64 01/18/20 13:51 108 H 114/61 97 01/18/20 13:48 111 H 114/67 01/18/20 13:46 113 H 97 01/18/20 13:45 107 H 117/76 01/18/20 13:42 105 H 129/85 01/18/20 13:41 109 H 99 01/18/20 13:39 110 H 117/75 01/18/20 13:36 104 H 98 01/18/20 13:35 123 H 118/75 01/18/20 13:31 116 H 99 01/18/20 13:30 74 L 01/18/20 13:26 110 H 100 01/18/20 13:21 114 H 100 01/18/20 13:16 106 H 100 01/18/20 13:13 120 H 93 01/18/20 13:11 112 H 100 01/18/20 13:06 115 H 100 01/18/20 13:04 110 H 134/63 01/18/20 13:01 125 H 100 01/18/20 12:56 121 H 100 01/18/20 12:53 133 H 175/99 01/18/20 12:51 124 H 98 01/18/20 12:46 117 H 98 01/18/20 12:41 108 H 98 01/18/20 12:36 113 H 100 01/18/20 12:31 113 H 99 01/18/20 12:26 110 H 99 01/18/20 12:21 110 H 100 01/18/20 12:16 110 H 99 01/18/20 12:11 103 H 98 01/18/20 12:06 105 H 99 01/18/20 12:01 119 H 99 01/18/20 11:56 116 H 98 01/18/20 11:54 99.6 F 16 98 01/18/20 11:52 107 H 106/69 Intake and Output 01/18/20 01/19/20 01/19/20 22:59 06:59 14:59 Intake Total 360 Output Total 301 Balance -301 360 Intake: Intake, Free Water 360 Output: Urine 301 Void 301 Other: Total, Output Amount 1 # Voids Void 1 1 - Exam Narrative Exam: Pt states that she is feeling much better today compared to yesterday. Denies shortness of breath and chest pain. Worried about having elevated temperatures mostly at night. Discussed that this could be d/t being COVID positive. Pt instructed that if she feels short of breath or is having chest pain to let RN know immediately. Discussed that chest x-ray normal. All questions and concerns were addressed at this time. Breasts: Present: deferred Cardiovascular: Present: Regular rate Lungs: Present: Clear to auscultation Abdomen: Present: normal appearance, soft Vulva: both: normal Uterus: Present: normal, firm Extremities: Present: normal Deep Tendon Reflex Grade: Normal +2 - Labs Labs: Abnormal lab results 01/18/20 01/18/20 Range/Units 10:27 Unknown WBC 4.3 L (4.5-11.0) K/mm3 MCHC 35 H (30-34) % Coronavirus (PCR) Positive A (Negative)
--- NOTE | 2020-01-19 10:26 | Consultation ---
History of Present Illness - Reason for Consult Consult date: 01/19/20 COVID/delivery Requesting physician: CHANA YU - History of Present Illness 34 years old female with history of CHF since 2005, also COVID-19 positive admitted in labor. Patient delivered a healthy on 01/18/2020. Admission vital signs with temperature 100.6, HR 107, BP 106/69, RR 16, O2 sat 98%. O2 sat have remained >94%. Chest x-ray clear. Review of Systems: reviewed ED and H&P notes. Limited due to PPE conservation strategy Past History Social history: no significant social history Medications and Allergies Allergies Allergy/AdvReac Type Severity Reaction Status Date / Time Sulfa (Sulfonamide Allergy Unknown Verified 05/30/19 08:43 Antibiotics) Home Medications Medication Instructions Recorded Confirmed Last Taken Type Omeprazole 1 tab PO DAILY 12/28/19 12/28/19 12/26/19 History Active Meds: Active Medications Acetaminophen (Tylenol) 1,000 mg PO Q6H PRN PRN Reason: Pain, Mild (1-3) Last Admin: 01/19/20 04:11 Dose: 1,000 mg Documented by: Benzocaine/Menthol (Dermoplast) 1 spray TP PRN PRN PRN Reason: Episiotomy Pain Bisacodyl (Dulcolax) 10 mg AK BID PRN PRN Reason: Constipation Diphenhydramine HCl (Benadryl) 25 mg PO Q6H PRN PRN Reason: Itching Docusate Sodium (Colace) 100 mg PO BID [facility] Last Admin: 01/19/20 01:27 Dose: 100 mg Documented by: Fluticasone Propionate (Flonase) 100 mcg NS QDAY PRN PRN Reason: Nasal Congestion Oxytocin/Sodium Chloride (Pitocin/Ns 30 Unit/500ml) 30 units in 500 mls @ 40 mls/hr IV TITR ALEX; Protocol Ibuprofen (Ibuprofen) 800 mg PO Q8H [facility] Last Admin: 01/19/20 01:26 Dose: 800 mg Documented by: Magnesium Hydroxide (Milk Of Magnesia) 30 ml PO HS PRN PRN Reason: Constipation Multi-Ingredient Ointment (Lansinoh) 1 applic TP PRN PRN PRN Reason: Sore Nipples Multivitamins/Iron/Calcium ( Vitamin) 1 each PO QDAY ALEX Ondansetron HCl (Zofran) 4 mg IV Q8H PRN PRN Reason: Nausea And Vomiting Promethazine HCl (Phenergan) 25 mg PO Q6H PRN PRN Reason: Nausea And Vomiting Sodium Chloride (Sodium Chloride Flush Syringe 10 Ml) 10 ml IV PRN NR Stop: 01/19/20 14:59 Witch Jodie/Glycerin (Tucks Pad) 1 each TP PRN PRN PRN Reason: Hemorrhoid/cleansing/soothing Physical Examination - Physical Exam Narrative exam: Physical Exam: reviewed ED and hospitalist notes, limited due to conservation of PPE and decrease risk of transmission. General appearance: limited due to conservation of PPE Eyes: limited due to conservation of PPE HENT: Atraumatic; limited due to conservation of PPE Lungs: limited due to conservation of PPE CV: limited due to conservation of PPE Abdomen: limited due to conservation of PPE Extremities: limited due to conservation of PPE Skin: limited due to conservation of PPE Psych: limited due to conservation of PPE Neuro: limited due to conservation of PPE - Constitutional Vitals: Vital Signs Temp Pulse Resp BP Pulse Ox 96.8 F L 103 H 18 122/79 97 01/19/20 08:49 01/19/20 02:51 01/19/20 08:49 01/19/20 08:49 01/19/20 02:51 Temperature -Last 24 Hours Temperature 96.8 F Temperature 100.8 F Temperature 100.1 F Temperature 99.2 F Temperature 99 F Temperature 102.6 F Temperature 100.6 F Temperature 99.6 F Temperature 99.6 F Results - Labs CBC & Chem 7: 01/19/20 04:45 Labs: Abnormal lab results 01/18/20 01/18/20 Range/Units 10:27 Unknown WBC 4.3 L (4.5-11.0) K/mm3 MCHC 35 H (30-34) % Coronavirus (PCR) Positive A (Negative) Assessment and Plan Cultures: SARS CoV2 PCR positive Assessment: 34 years old female with history of CHF since 2006, also COVID-19 positive admitted in labor: #Mild COVID infection: Noted low-grade fever, no hypoxia, chest x-ray clear. #Labor and delivery: On 01/18/2020 Recommendations: -Monitor pulse oximetry, call ID if <94% -No indication for dexamethasone - patient is not hypoxic -No indication for Remdesivir -patient is not hypoxic -Continue COVID-19 isolation per hospital protocol -breast-feeding is allowed, encouraged to wear a mask while breast-feeding to decrease transmission to the -Okay to discharge home from ID standpoint All laboratory, cultures and imaging were reviewed. Discussed with nursing staff. Will follow Kim Wyatt MD Infectious Diseases Charge Poster [facility] M [phone] O [phone]
[2020-01-19] MEDS: PRENATAL VIT27-FE FUMARATE-FOLIC ACID VIT TAB PO SCH (10:41)
[2020-01-20] MEDS: IBUPROFEN 800 MG TAB PO SCH ×2 (04:54→13:14)
--- NOTE | 2020-01-20 06:40 | Progress Note ---
Assessment and Plan - Patient Problems (1) Coronavirus infection Onset Date: ~01/14/20 Current Visit: Yes Status: Acute Plan to address problem: RN called and spoke with Dr Parks this AM. Her recommendation is to keep the pt a nd repeat urine and blood cultures. (2) Spontaneous vaginal delivery Onset Date: ~01/18/20 Current Visit: Yes Status: Acute Plan to address problem: Pt w/o complaint. Feels warm but no c/o SOB,cough. Temp 102 otherwise VSS FF below umb Lochia scant. Perineum intact. Pt states she just feels frustrated. She tells me she heard maintenance refused to come in to fix her TV because she was covid +. Will investigate this. Stable H&H No s/sx of anemia P: will continue pathway. Will ask to improve situation in pt's room,ie get a working TV and a phone. Subjective - Subjective Date of service: 01/20/20 (temp 102 this AM) Principal diagnosis: Day # 2: s/p @ term, COVID Positive, tachycardia, fever Patient reports: appetite normal, voiding normally, pain well controlled, ambulating normally : doing well Objective - Vital Signs Latest vital signs: Vital Signs Temp Pulse Resp BP BP Pulse Ox 01/20/20 05:05 102 F H 01/20/20 04:54 16 01/19/20 20:55 99.1 F 86 16 121/78 96 01/19/20 15:58 98.1 F 79 18 119/76 97 01/19/20 12:13 98.1 F 96 H 18 121/86 97 01/19/20 08:49 96.8 F L 18 122/79 - Exam Breasts: Present: normal Cardiovascular: Present: Regular rate Lungs: Present: Clear to auscultation, Normal air movement Abdomen: Present: normal appearance, soft, normal bowel sounds Uterus: Present: normal, fundal height below umbilicus Extremities: Present: normal Incision: Present: normal, dry, intact
--- NOTE | 2020-01-20 09:22 | Event Note ---
Date: 01/20/20 Agree with supervisor grading note and exam. Will await input from ID regarding covid 19 treatment recommendations as pt continues to be fibrile this am. Stable from chef french standpoint.
[2020-01-20] MEDS: PRENATAL VIT27-FE FUMARATE-FOLIC ACID VIT TAB PO SCH (09:26)
[2020-01-20] MEDS: DOCUSATE SODIUM 100 MG CAP PO SCH (09:26)
[2020-01-20 09:46] LABS: Bacteria,Urine 1+ /HPF (Negative); Bilirubin,Urine NEG (Negative); Blood,Urine LG (Negative); Color,Urine Yellow (Yellow); Mucus,Urine FEW /HPF; Urobilinogen,Urine < 2.0 mg/dL (<2.0)
[2020-01-20 09:47] LABS: RBC,Urine > 182.0 /HPF (0.0-6.0)
[2020-01-20] MEDS: ACETAMINOPHEN 500 MG TAB PO PRN (10:15)
--- NOTE | 2020-01-20 15:59 | Progress Note ---
Assessment and Plan Cultures: SARS CoV2 PCR positive Assessment: 34 years old female with history of CHF since 2006, also COVID-19 positive admitted in labor: #Mild COVID infection: Noted fever, no hypoxia, chest x-ray clear. #Labor and delivery: On 01/18/2020 Recommendations: -Monitor pulse oximetry, call ID if <94% -No indication for dexamethasone - patient is not hypoxic -No indication for Remdesivir -patient is not hypoxic -Continue COVID-19 isolation per hospital protocol -breast-feeding is allowed, encouraged to wear a mask while breast-feeding to decrease transmission to the -Despite ongoing fevers, no acute treatment is necessary so long as patient is not hypoxic. Ligia Taylor MD [facility] M: [phone] O: [phone] F: [phone] Subjective Date of service: 01/20/20 Principal diagnosis: Day # 2: s/p @ term, COVID Positive, tachycardia, fever Interval history: Febrile to 102 white count mildly leukopenic at 4.3. Objective - Exam Narrative Exam: Physical exam deferred due to PPE conservation strategy. Please refer to primary team's note. - Constitutional Vitals: Vital Signs Temp Pulse Resp BP Pulse Ox 98.6 F 90 20 110/66 96 01/20/20 07:58 01/20/20 07:58 01/20/20 07:58 01/20/20 07:58 01/20/20 07:58 Temperature -Last 24 Hours Temperature 98.6 F Temperature 101.2 F Temperature 102 F Temperature 99.1 F - Labs CBC & Chem 7: 01/19/20 04:45 Labs: Abnormal lab results 01/20/20 Range/Units 09:00 Urine WBC (Auto) 52.0 H (0.0-6.0) /HPF
--- NOTE | 2020-01-20 17:16 | Event Note ---
Date: 01/20/20 (pt desires d/c) Called Dr Taylor in regards to allowing pt to d/c today. He states he is comfortable with allowing her to go because with exception of fevers she is asymptomatic. I did ask him to pls append his note to reflect that d/c home was OK. He voiced he would. I did ask if the pt needed to f/u with ID, he said no. I ran all the above past Dr De Leon she agreed with the d/c as long as ID made the notation
--- NOTE | 2020-01-20 17:18 | Discharge Summary ---
Providers - Providers Date of Admission: 01/18/20 10:25 Date of discharge: 01/20/20 (pt desires d/c home) Attending physician: CHANA YU 01/18/20 19:10 Consult to Physician [CONS] Routine Comment: Consulting Provider: HALIMA EPSTEIN Physician Instructions: Reason For Exam: COVID-19 Positive Primary care physician: CHANA YU Hospitalization Reason for admission: active labor, other (Covid 19+) Delivery: Episiotomy: none Laceration: none Incision: normal Other procedures: none complications: none Discharge diagnosis: IUP at term delivered baby: male Hospital course: uncomplicated vaginal delivery Covid 19+ febrile no other sx Pt masked and caring for her NB VSS FF below umb Lochia scant Perineum intact. H&H stable No s/sx of anemia. Doing well s/p and recovering from Covid P: d/c home today with instructions. Pt will call office for plan for circumcision She is aware she must have a negative covid test prior to her RTO Condition at discharge: Good Disposition: DC-01 TO HOME OR SELFCARE - Discharge Diagnoses (1) Coronavirus infection Status: Acute Comment: negative covid test is req prior to PP visit in 4 weeks (2) Spontaneous vaginal delivery Status: Acute Comment: RTO 4 weeks PP care Pt desires tubal Plan - Discharge Medications Prescriptions: Lidocain2.5%/Prilocai2.5% [Emla] 1 applic TP ONCE #1 tube Ibuprofen [Motrin] 800 mg PO Q8HR PRN #30 tablet PRN Reason: Pain, Moderate (4-6) - Provider Discharge Summary Activity: routine, no sex for 6 weeks, no heavy lifting 4 weeks, no strenuous exercise Diet: routine Instructions: routine Additional instructions: [] Smoking cessation referral if applicable(refer to patient education folder for contact #) [] Refer to [facility] Booklet Call your doctor immediately for: * Fever > 100.5 * Heavy vaginal bleeding ( >1 pad per hour) * Severe persistent headache * Shortness of breath * Reddened, hot, painful area to leg or breast * Drainage or odor from incision. * Keep incision clean and dry at all times and follow doctor's instructions regarding bathing/showering - Follow up plan Follow up: CHANA YU MD [Primary Care Provider] - 02/18/20 (Congratulations! Please call [phone] to schedule your visit in 4 weeks, you will need a negative Covid test. Take Motrin for cramping Tylenol for fever. )
[2020-01-21 00:45] VITALS: BP 130/70
== END 2020-01-20 21:30 | disposition home or self-care (01) | DRG 774 ==
LOC: TRG 10:03 → APU 10:05 → TRG 10:23 → LD 10:25 → OB 21:01
PROVIDERS: ADMIT Obstetrics & Gynecology; ATTEND Obstetrics & Gynecology
PROC: 3E0R3BZ Introduction of Anesthetic Agent into Spinal Canal, Percutaneous Approach (ICD-10-PCS; 2020-01-16)
PROC: 00HU33Z Insertion of Infusion Device into Spinal Canal, Percutaneous Approach (ICD-10-PCS; 2020-01-16)
PROC: 10E0XZZ Delivery of Products of Conception, External Approach (ICD-10-PCS; principal; 2020-01-18)
PROC: 0HQ9XZZ Repair Perineum Skin, External Approach (ICD-10-PCS; 2020-01-18)
PROC: 3E0234Z Introduction of Serum, Toxoid and Vaccine into Muscle, Percutaneous Approach (ICD-10-PCS; 2020-01-19)
PROC: 3E0134Z Introduction of Serum, Toxoid and Vaccine into Subcutaneous Tissue, Percutaneous Approach (ICD-10-PCS; 2020-01-19)
DX: O98.52 Other viral diseases complicating childbirth (principal); O99.419 Diseases of the circulatory system complicating pregnancy, unspecified trimester; Z37.0 Single live birth; Z3A.38 38 weeks gestation of pregnancy; U07.1 COVID-19; Z87.891 Personal history of nicotine dependence; Z88.2 Allergy status to sulfonamides; Z79.899 Other long term (current) drug therapy
CPT/HCPCS: 36415; 71045; 81001; 85014; 85018; 85027; 86592; 86850; 86900; 86901; 87040; 87086; 93005; G0378; A6250; J2405; J2590; J3010; J3490; J7120; U0003-CS

== ENCOUNTER 2020-09-26 15:16 | Emergency (ER) | payer MEDICAID ==
[2020-09-26] MEDS ORDERED: ONDANSETRON 4 MG ODT TAB PO ONE (16:37)
[2020-09-26] MEDS ORDERED: HYOSCYAMINE SUBL 0.125 MG TAB SL ONE (16:37)
--- NOTE | 2020-09-26 16:55 | Emergency Department Report ---
ED General Adult HPI - General Chief complaint: Nausea/Vomiting/Diarrhea Stated complaint: ABD CRAMPS, NAUSEA, DIARRHEA Time Seen by Provider: 09/26/20 16:34 Source: patient Mode of arrival: Ambulatory Limitations: No Limitations - History of Present Illness Initial comments: Patient is a 35-year-old female presents emergency room complaints of nausea and diarrhea that began earlier this morning. She has associated left upper quadrant cramping. She denies any vomiting, hematochezia, melena, hematemesis, pus in the stool, fever. She states that last night she ate at a new restaurant. She denies any known sick contacts. She denies any recent travel. She denies any water from a different source, camping, recent antibiotics. She has an allergy to sulfa. Past abdominal surgical history of tubal ligation and hernia repair. - Related Data Home Medications Medication Instructions Recorded Confirmed Last Taken Omeprazole 1 tab PO DAILY 12/28/19 12/28/19 12/26/19 Previous Rx's Medication Instructions Recorded Last Taken Type Ibuprofen [Motrin] 800 mg PO Q8HR PRN #30 tablet 01/19/20 Unknown Rx Lidocain2.5%/Prilocai2.5% [Emla] 1 applic TP ONCE #1 tube 01/19/20 Unknown Rx Hyoscyamine Subl [Levsin Sl 0.125 0.125 mg SL Q6HR PRN #8 tab 09/26/20 Unknown Rx TAB] Ondansetron [Zofran Odt] 4 mg PO Q8HR PRN #8 tab.rapdis 09/26/20 Unknown Rx Allergies Allergy/AdvReac Type Severity Reaction Status Date / Time Sulfa (Sulfonamide Allergy Unknown Verified 05/30/19 08:43 Antibiotics) ED Review of Systems ROS: Stated complaint: ABD CRAMPS, NAUSEA, DIARRHEA Other details as noted in HPI Comment: All other systems reviewed and negative ED Past Medical Hx - Past Medical History Previous Medical History?: Yes Hx Hypertension: No Hx Heart Attack/AMI: No Hx Congestive Heart Failure: No Hx Diabetes: No Hx Deep Vein Thrombosis: No Hx Liver Disease: No Hx Renal Disease: No Hx Sickle Cell Disease: No Hx Seizures: No Hx Asthma: No Hx COPD: No Hx HIV: No Additional medical history: Vaginal delivery x 3, frequent/chronic SORE THROAT - Surgical History Past Surgical History?: Yes Hx Pacemaker: No Hx Internal Defibrillator: No Additional Surgical History: hernia repair x 2, endoscopy 1992 - Social History Smoking Status: Former Smoker Substance Use Type: None - Medications Home Medications: Home Medications Medication Instructions Recorded Confirmed Last Taken Type Omeprazole 1 tab PO DAILY 12/28/19 12/28/19 12/26/19 History Ibuprofen [Motrin] 800 mg PO Q8HR PRN #30 tablet 01/19/20 Unknown Rx Lidocain2.5%/Prilocai2.5% [Emla] 1 applic TP ONCE #1 tube 01/19/20 Unknown Rx Hyoscyamine Subl [Levsin Sl 0.125 0.125 mg SL Q6HR PRN #8 tab 09/26/20 Unknown Rx TAB] Ondansetron [Zofran Odt] 4 mg PO Q8HR PRN #8 tab.rapdis 09/26/20 Unknown Rx ED Physical Exam - General Limitations: No Limitations General appearance: alert, in no apparent distress - Head Head exam: Present: atraumatic, normocephalic - Eye Eye exam: Present: normal appearance - ENT ENT exam: Present: mucous membranes moist - Respiratory Respiratory exam: Present: normal lung sounds bilaterally. Absent: respiratory distress, wheezes, rales, rhonchi, stridor, chest wall tenderness, accessory muscle use, decreased breath sounds, prolonged expiratory - Cardiovascular Cardiovascular Exam: Present: regular rate, normal rhythm, normal heart sounds. Absent: systolic murmur, diastolic murmur, rubs, gallop - GI/Abdominal GI/Abdominal exam: Present: soft, normal bowel sounds. Absent: distended, tenderness, guarding, rebound, rigid - Neurological Exam Neurological exam: Present: alert, oriented X3 - Psychiatric Psychiatric exam: Present: normal affect, normal mood - Skin Skin exam: Present: warm, dry, intact ED Course Vital Signs 09/26/20 09/26/20 16:15 18:15 Temperature 98.8 F Pulse Rate 87 65 Respiratory 20 15 Rate Blood Pressure 143/94 Blood Pressure 147/86 [Right] O2 Sat by Pulse 100 100 Oximetry ED Medical Decision Making - Lab Data Result diagrams: 09/26/20 16:50 09/26/20 16:50 Lab Results 09/26/20 09/26/20 09/26/20 Range/Units 16:49 16:50 16:50 WBC 7.2 (4.5-11.0) K/mm3 RBC 4.33 (3.65-5.03) M/mm3 Hgb 14.0 (10.1-14.3) gm/dl Hct 39.3 (30.3-42.9) % MCV 91 (79-97) fl MCH 32 (28-32) pg MCHC 36 H (30-34) % RDW 13.8 (13.2-15.2) % Plt Count 301 (140-440) K/mm3 Lymph % (Auto) 23.3 (13.4-35.0) % [place] % (Auto) 7.2 (0.0-7.3) % Eos % (Auto) 0.8 (0.0-4.3) % Baso % (Auto) 0.8 (0.0-1.8) % Lymph # (Auto) 1.7 (1.2-5.4) K/mm3 [place] # (Auto) 0.5 (0.0-0.8) K/mm3 Eos # (Auto) 0.1 (0.0-0.4) K/mm3 Baso # (Auto) 0.1 (0.0-0.1) K/mm3 Seg Neutrophils % 67.9 (40.0-70.0) % Seg Neutrophils # 4.9 (1.8-7.7) K/mm3 Sodium 138 (137-145) mmol/L Potassium 4.6 (3.6-5.0) mmol/L Chloride 102.0 (98-107) mmol/L Carbon Dioxide 26 (22-30) mmol/L Anion Gap 15 mmol/L BUN 9 (7-17) mg/dL Creatinine 0.7 (0.6-1.2) mg/dL Estimated GFR > 60 ml/min BUN/Creatinine Ratio 13 % Glucose 98 (65-100) mg/dL Calcium 9.5 (8.4-10.2) mg/dL Total Bilirubin 0.40 (0.1-1.2) mg/dL AST 14 (5-40) units/L ALT 12 (7-56) units/L Alkaline Phosphatase 59 (35-129) units/L Total Protein 7.7 (6.3-8.2) g/dL Albumin 4.8 (3.9-5) g/dL Albumin/Globulin Ratio 1.7 % Lipase 28 (13-60) units/L HCG, Qual (Negative) Urine Color Yellow (Yellow) Urine Turbidity Clear (Clear) Urine pH 6.0 (5.0-7.0) Ur Specific [place] 1.021 (1.003-1.030) Urine Protein <15 mg/dl (Negative) mg/dL Urine Glucose (UA) Neg (Negative) mg/dL Urine Ketones Neg (Negative) mg/dL Urine Blood Neg (Negative) Urine Nitrite Neg (Negative) Urine Bilirubin Neg (Negative) Urine Urobilinogen < 2.0 (<2.0) mg/dL Ur Leukocyte Esterase Neg (Negative) Urine WBC (Auto) 1.0 (0.0-6.0) /HPF Urine RBC (Auto) 2.0 (0.0-6.0) /HPF U Epithel Cells (Auto) 3.0 (0-13.0) /HPF Urine Mucus Few /HPF / Range/Units 16:50 WBC (4.5-11.0) K/mm3 RBC (3.65-5.03) M/mm3 Hgb (10.1-14.3) gm/dl Hct (30.3-42.9) % MCV (79-97) fl MCH (28-32) pg MCHC (30-34) % RDW (13.2-15.2) % Plt Count (140-440) K/mm3 Lymph % (Auto) (13.4-35.0) % [place] % (Auto) (0.0-7.3) % Eos % (Auto) (0.0-4.3) % Baso % (Auto) (0.0-1.8) % Lymph # (Auto) (1.2-5.4) K/mm3 [place] # (Auto) (0.0-0.8) K/mm3 Eos # (Auto) (0.0-0.4) K/mm3 Baso # (Auto) (0.0-0.1) K/mm3 Seg Neutrophils % (40.0-70.0) % Seg Neutrophils # (1.8-7.7) K/mm3 Sodium (137-145) mmol/L Potassium (3.6-5.0) mmol/L Chloride (98-107) mmol/L Carbon Dioxide (22-30) mmol/L Anion Gap mmol/L BUN (7-17) mg/dL Creatinine (0.6-1.2) mg/dL Estimated GFR ml/min BUN/Creatinine Ratio % Glucose (65-100) mg/dL Calcium (8.4-10.2) mg/dL Total Bilirubin (0.1-1.2) mg/dL AST (5-40) units/L ALT (7-56) units/L Alkaline Phosphatase (35-129) units/L Total Protein (6.3-8.2) g/dL Albumin (3.9-5) g/dL Albumin/Globulin Ratio % Lipase (13-60) units/L HCG, Qual Negative (Negative) Urine Color (Yellow) Urine Turbidity (Clear) Urine pH (5.0-7.0) Ur Specific [place] (1.003-1.030) Urine Protein (Negative) mg/dL Urine Glucose (UA) (Negative) mg/dL Urine Ketones (Negative) mg/dL Urine Blood (Negative) Urine Nitrite (Negative) Urine Bilirubin (Negative) Urine Urobilinogen (<2.0) mg/dL Ur Leukocyte Esterase (Negative) Urine WBC (Auto) (0.0-6.0) /HPF Urine RBC (Auto) (0.0-6.0) /HPF U Epithel Cells (Auto) (0-13.0) /HPF Urine Mucus /HPF - Medical Decision Making Patient is a 35-year-old female presents emergency room complaints of nausea and diarrhea that began earlier this morning. She has associated left upper quadrant cramping. She denies any vomiting, hematochezia, melena, hematemesis, pus in the stool, fever. She states that last night she ate at a new restaurant. She denies any known sick contacts. She denies any recent travel. She denies any water from a different source, camping, recent antibiotics. She has an allergy to sulfa. Past abdominal surgical history of tubal ligation and hernia repair. Vitals are stable. On exam patient has no abdominal tenderness palpation, no guarding, no rebound, no rigidity, nor bowel sounds, no peritoneal signs. Labs are normal. UA is within normal limits. Patient given p.o. medications while in the emergency department and symptoms improved and she is feeling much better ready go home. Patient had no further episodes of diarrhea while in the emergency department. Advised patient Please take medication as prescribed as needed. Increase your fluid intake over the next several days. Eat a bland liquid diet and slowly advance her diet as tolerated. Follow-up with primary care doctor for reexamination. Return to emergency room for any new or worsening symptoms. Critical care attestation.: If time is entered above; I have spent that time in minutes in the direct care of this critically ill patient, excluding procedure time. ED Disposition Clinical Impression: Nausea Diarrhea Qualifiers: Diarrhea type: unspecified type Qualified Code(s): R19.7 - Diarrhea, unspecified Disposition: DC- TO HOME OR SELFCARE Is pt being admited?: No Does the pt Need Aspirin: No Condition: Stable Instructions: Food Poisoning Additional Instructions: Please take medication as prescribed as needed. Increase your fluid intake over the next several days. Eat a bland liquid diet and slowly advance her diet as tolerated. Follow-up with primary care doctor for reexamination. Return to emergency room for any new or worsening symptoms. Prescriptions: Hyoscyamine Subl [Levsin Sl 0.125 TAB] 0.125 mg SL Q6HR PRN #8 tab PRN Reason: abdominal cramping/diarrhea Ondansetron [Zofran Odt] 4 mg PO Q8HR PRN #8 tab.rapdis PRN Reason: nausea/vomiting Referrals: PRIMARY CARE, [Primary Care Provider] - 2-3 Days Forms: Work/School Release Form(ED) Time of Disposition: 18:04 Print Language: YAKUT
[2020-09-26 17:01] LABS: Bilirubin,Urine NEG (Negative); Blood,Urine NEG (Negative); Color,Urine Yellow (Yellow); Mucus,Urine FEW /HPF; Protein,Urine <15 mg/dL mg/dL (Negative); Urobilinogen,Urine < 2.0 mg/dL (<2.0)
[2020-09-26 17:27] LABS: Basophils # (Auto) 0.1 K/mm3 (0.0-0.1); Basophils % (Auto) 0.8 % (0.0-1.8); Eosinophils # (Auto) 0.1 K/mm3 (0.0-0.4); Eosinophils % (Auto) 0.8 % (0.0-4.3); Hematocrit 39.3 % (30.3-42.9); Lymphocytes # (Auto) 1.7 K/mm3 (1.2-5.4); Lymphocytes % (Auto) 23.3 % (13.4-35.0); Mean Corpuscular HGB Conc 36 % (30-34); Mean Corpuscular Volume 91 fl (79-97); Monocytes # (Auto) 0.5 K/mm3 (0.0-0.8); Monocytes % (Auto) 7.2 % (0.0-7.3); Platelet Count 301 K/mm3 (140-440); Red Blood Count 4.33 M/mm3 (3.65-5.03); Red Cell Distribution Width 13.8 % (13.2-15.2)
[2020-09-26 17:39] LABS: Alanine Aminotransferase 12 units/L (7-56); Albumin 4.8 g/dL (3.9-5); Blood Urea Nitrogen 9 mg/dL (7-17); Calcium 9.5 mg/dL (8.4-10.2); Hemolysis Index 27
[2020-09-26 17:42] LABS: BUN/Creatinine Ratio 13
[2020-09-26 18:18] VITALS: BP 147/86
== END 2020-09-26 18:15 | disposition home or self-care (01) ==
LOC: ED 15:16
DX: R11.0 Nausea (principal); R19.7 Diarrhea, unspecified; Z98.890 Other specified postprocedural states; Z87.891 Personal history of nicotine dependence; Z79.1 Long term (current) use of non-steroidal anti-inflammatories (NSAID); Z79.899 Other long term (current) drug therapy; Z88.2 Allergy status to sulfonamides
CPT/HCPCS: 36415; 80053; 81001; 83690; 84703; 85025; Q0162

== ENCOUNTER 2021-03-17 13:52 | Emergency (ER) | payer MEDICAID ==
[2021-03-17] MEDS ORDERED: METOCLOPRAMIDE 10 MG/2 ML INJ IV ONE (14:51)
[2021-03-17] MEDS ORDERED: SODIUM CHLORIDE 0.9% 1000 ML 1,000 ML IV ONE (14:51)
[2021-03-17] MEDS ORDERED: diphenhydrAMINE 50 MG/ML VIAL IV ONE (14:52)
--- NOTE | 2021-03-17 15:10 | Emergency Department Report ---
ED General Adult HPI - General Chief complaint: Headache Stated complaint: HEADACHE/SORE THROAT Time Seen by Provider: 03/17/21 14:08 Source: patient Mode of arrival: Ambulatory Limitations: No Limitations - History of Present Illness Initial comments: 36-year-old -[place] female patient presents with complaints of headache and sore throat for the past few days. Patient states she chronically has intermittent mild sore throats due to allergies and that this feels like her normal sore throat. She denies any cough, chest pain, shortness of breath, vision changes, numbness/tingling/weakness in her limbs, difficulty with speech/ambulation, confusion, or memory loss. She does admit to some dizziness that occurs only with changing of body positions. She also states her headache is dull and achy and only worsens with changing in body positions. Blood pressure noted to be significantly elevated. Patient denies prior history of hypertension and states her blood pressure was on the low side of normal when she was seen at her doctor's visit 2 months ago. Patient rates her headache as a 9/10 in severity - Related Data Home Medications Medication Instructions Recorded Confirmed Last Taken Omeprazole 1 tab PO DAILY 12/28/19 03/17/21 12/26/19 Previous Rx's Medication Instructions Recorded Last Taken Type Ibuprofen [Motrin] 800 mg PO Q8HR PRN #30 tablet 01/19/20 Unknown Rx Lidocain2.5%/Prilocai2.5% [Emla] 1 applic TP ONCE #1 tube 01/19/20 Unknown Rx Hyoscyamine Subl [Levsin Sl 0.125 0.125 mg SL Q6HR PRN #8 tab 09/26/20 Unknown Rx TAB] Ondansetron [Zofran Odt] 4 mg PO Q8HR PRN #8 tab.rapdis 09/26/20 Unknown Rx predniSONE [Deltasone] 20 mg PO BID 2 Days #4 tab 03/17/21 Unknown Rx Allergies Allergy/AdvReac Type Severity Reaction Status Date / Time Sulfa (Sulfonamide Allergy Unknown Verified 03/17/21 16:18 Antibiotics) ED Review of Systems ROS: Stated complaint: HEADACHE/SORE THROAT Other details as noted in HPI Constitutional: denies: chills, diaphoresis, fever, malaise, weakness Eyes: other (Photophobia). denies: eye pain, vision change ENT: throat pain Respiratory: denies: cough, shortness of breath Cardiovascular: denies: chest pain Gastrointestinal: denies: abdominal pain, nausea, vomiting Genitourinary: denies: urgency, dysuria, frequency, hematuria Musculoskeletal: denies: back pain Neurological: headache, other (Lightheadedness). denies: numbness, paresthesias, abnormal gait ED Past Medical Hx - Past Medical History Hx Hypertension: No Hx Heart Attack/AMI: No Hx Congestive Heart Failure: No Hx Diabetes: No Hx Deep Vein Thrombosis: No Hx Liver Disease: No Hx Renal Disease: No Hx Sickle Cell Disease: No Hx Seizures: No Hx Asthma: No Hx COPD: No Hx HIV: No Additional medical history: Vaginal delivery x 3, frequent/chronic SORE THROAT - Surgical History Hx Pacemaker: No Hx Internal Defibrillator: No Additional Surgical History: hernia repair x 2, endoscopy 1992 - Social History Smoking Status: Former Smoker Substance Use Type: None - Medications Home Medications: Home Medications Medication Instructions Recorded Confirmed Last Taken Type Omeprazole 1 tab PO DAILY 12/28/19 03/17/21 12/26/19 History Ibuprofen [Motrin] 800 mg PO Q8HR PRN #30 tablet 01/19/20 03/17/21 Unknown Rx Lidocain2.5%/Prilocai2.5% [Emla] 1 applic TP ONCE #1 tube 01/19/20 03/17/21 Unknown Rx Hyoscyamine Subl [Levsin Sl 0.125 0.125 mg SL Q6HR PRN #8 tab 09/26/20 03/17/21 Unknown Rx TAB] Ondansetron [Zofran Odt] 4 mg PO Q8HR PRN #8 tab.rapdis 09/26/20 03/17/21 Unknown Rx predniSONE [Deltasone] 20 mg PO BID 2 Days #4 tab 03/17/21 Unknown Rx ED Physical Exam - General Limitations: No Limitations General appearance: alert, in no apparent distress - Head Head exam: Present: atraumatic, normocephalic - Eye Eye exam: Present: normal appearance, PERRL, EOMI. Absent: scleral icterus - ENT ENT exam: Present: normal exam, normal orophraynx - Neck Neck exam: Present: normal inspection, full ROM - Respiratory Respiratory exam: Present: normal lung sounds bilaterally. Absent: respiratory distress - Cardiovascular Cardiovascular Exam: Present: regular rate, normal rhythm - Extremities Exam Extremities exam: Present: full ROM - Back Exam Back exam: Present: full ROM - Neurological Exam Neurological exam: Present: alert, oriented X3, CN II-XII intact, normal gait. Absent: motor sensory deficit - Expanded Neurological Exam Expanded Speech: Present: fluid speech Cerebellar function: Finger to Nose: Normal, Heel to [place]: Normal, [place]: Normal Sensory exam: Upper Extremity Light Touch: Normal, Lower Extremity Light Touch: Normal Motor strength exam: RUE: 4, LUE: 4, RLE: 4, LLE: 4 Best Eye Response ([place]): (4) open spontaneously Best Motor Response ([place]): (6) obeys commands Best Verbal Response ([place]): (5) oriented Mary Total: 15 - Psychiatric Psychiatric exam: Present: normal affect, normal mood - Skin Skin exam: Present: warm, dry, intact, normal color. Absent: rash ED Course Vital Signs 03/17/21 03/17/21 03/17/21 14:04 16:15 16:16 Temperature 99.1 F 98.6 F 98.6 F Pulse Rate 81 89 89 Respiratory 18 14 14 Rate Blood Pressure 156/74 Blood Pressure 197/108 156/74 [Left] O2 Sat by Pulse 99 99 98 Oximetry ED Medical Decision Making - Lab Data Result diagrams: 03/17/21 15:02 03/17/21 15:14 - Radiology Data Radiology results: report reviewed CT BRAIN: 03/17/2021 INDICATION / CLINICAL INFORMATION: abnormal aucte STONE with elevated BP. COMPARISON: None available. FINDINGS: BRAIN/INTRACRANIAL STRUCTURES: Unenhanced CT images of the brain demonstrate no evidence of acute abnormality. Ventricles and sulci are within normal limits of size and shape for a patient of this age. There is no evidence of hemorrhage or mass. There are no abnormal extra-axial fluid collections. EXTRACRANIAL STRUCTURES: Unremarkable. IMPRESSION: No evidence of acute abnormality. - Medical Decision Making 36-year-old -[place] female patient presents with complaints of headache and sore throat for the past few days. Patient states she chronically has intermittent mild sore throats due to allergies and that this feels like her normal sore throat. She denies any cough, chest pain, shortness of breath, vision changes, numbness/tingling/weakness in her limbs, difficulty with speech/ ambulation, confusion, or memory loss. She does admit to some dizziness that occurs only with changing of body positions. She also states her headache is dull and achy and only worsens with changing in body positions. Blood pressure noted to be significantly elevated. Patient denies prior history of hypertension and states her blood pressure was on the low side of normal when she was seen at her doctor's visit [address] head is normal. Patient neurologically intact on exam. Blood pressure improved to 156/76. Patient states headache has completely resolved with meds given here in ED. Recommend she follows up with PCP in 3 to 5 days. Discussed imaging and lab results, presumptive diagnosis, and signs and symptoms that should prompt immediate return to the ED with patient verbalized understanding. Critical care attestation.: If time is entered above; I have spent that time in minutes in the direct care of this critically ill patient, excluding procedure time. ED Disposition Clinical Impression: Headache Disposition: 01 HOME / SELF CARE / HOMELESS Is pt being admited?: No Condition: Stable Prescriptions: predniSONE [Deltasone] 20 mg PO BID 2 Days #4 tab Referrals: PRIMARY CARE, [Primary Care Provider] - 2-3 Days Forms: Work/School Release Form(ED)
[2021-03-17 15:45] LABS: Basophils % (Auto) 0.5 % (0.0-1.8); Eosinophils # (Auto) 0.1 K/mm3 (0.0-0.4); Eosinophils % (Auto) 1.3 % (0.0-4.3); Hematocrit 41.8 % (30.3-42.9); Hemoglobin 13.5 gm/dl (10.1-14.3); Lymphocytes % (Auto) 32.1 % (13.4-35.0); Mean Corpuscular HGB Conc 32 % (30-34); Mean Corpuscular Volume 94 fl (79-97); Monocytes # (Auto) 0.5 K/mm3 (0.0-0.8); Monocytes % (Auto) 8.2 % (0.0-7.3); Platelet Count 260 K/mm3 (140-440); Red Blood Count 4.45 M/mm3 (3.65-5.03); Red Cell Distribution Width 13.3 % (13.2-15.2)
--- NOTE | 2021-03-17 15:50 | Cat Scan Report ---
CT BRAIN: 03/17/2021 INDICATION / CLINICAL INFORMATION: abnormal aucte STONE with elevated BP. COMPARISON: None available. FINDINGS: BRAIN/INTRACRANIAL STRUCTURES: Unenhanced CT images of the brain demonstrate no evidence of acute abn ormality. Ventricles and sulci are within normal limits of size and shape for a patient of this age. There is no evidence of hemorrhage or mass. There are no abnormal extra-axial fluid collections. EXTRACRANIAL STRUCTURES: Unremarkable. IMPRESSION: No evidence of acute abnormality. All CT scans at this location are performed using dose reduction to ALARA by means of automated expos ure control. Signer Name: Marc Vidales MD Signed: 03/17/2021 3:46 PM Workstation Name: [id number]
[2021-03-17] MEDS ORDERED: KETOROLAC 30 MG/1 ML INJ IV ONE (16:00)
[2021-03-17] MEDS ORDERED: dexAMETHasone 20 MG/5 ML VIAL IV ONE (16:00)
[2021-03-17 16:03] LABS: Alanine Aminotransferase 13 units/L (7-56); Albumin 4.4 g/dL (3.9-5); BUN/Creatinine Ratio 18; Blood Urea Nitrogen 11 mg/dL (7-17); Calcium 8.7 mg/dL (8.4-10.2)
[2021-03-17 16:16] VITALS: BP 156/74
[2021-03-17 16:27] LABS: Bilirubin,Direct < 0.2 mg/dL (0-0.2)
== END 2021-03-17 16:15 | disposition home or self-care (01) ==
LOC: ED 13:52
DX: R51.9 Headache, unspecified (principal); Z88.2 Allergy status to sulfonamides
CPT/HCPCS: 36415; 70450; 80048; 80076; 84703; 85025; 96361; 96374; 96375; 99284; J1100; J1200; J1885; J2765; J7030; Q0162

== ENCOUNTER 2021-07-23 15:09 | Emergency (ER) | payer MEDICAID ==
[2021-07-23 17:31] VITALS: BP 170/111
--- NOTE | 2021-07-23 22:11 | Emergency Department Report ---
ED Abdominal Pain HPI - General Chief Complaint: Abdominal Pain Stated Complaint: ABDOMINAL PAIN Time Seen by Provider: 07/23/21 21:57 Source: patient Mode of arrival: Ambulatory Limitations: No Limitations - History of Present Illness Initial Comments: 36-year-old female presents emerged department complaining of having abdominal issues off and on for the last 18 months. States that she had a baby about 18 months ago and was said to have had hemorrhoids which led to her having multiple bouts of constipation last 4 days and changed over to bouts of diarrhea. This is been fluctuating off and on since that time with no improvement occasional labile constipation she gets some bloody tissues when she wipes. Reports no fever, chills, sweats. Hemoptysis no hematemesis no hematuria hematochezia. No no dysuria no, possibility of no suspicion of any STDs. Her only other associated symptom is fatigue. MD Complaint: abdominal pain -: Gradual, year(s) Radiation: none Migration to: no migration Severity: mild Severity scale (0 -10): 8 Quality: dull Improves With: nothing Worsens With: nothing Associated Symptoms: denies: fever, dysuria, melena, anorexia, syncope - Related Data Home Medications Medication Instructions Recorded Confirmed Last Taken Omeprazole 1 tab PO DAILY 12/28/19 03/17/21 12/26/19 Previous Rx's Medication Instructions Recorded Last Taken Type Ibuprofen [Motrin] 800 mg PO Q8HR PRN #30 tablet 01/19/20 Unknown Rx Lidocain2.5%/Prilocai2.5% [Emla] 1 applic TP ONCE #1 tube 01/19/20 Unknown Rx Hyoscyamine Subl [Levsin Sl 0.125 0.125 mg SL Q6HR PRN #8 tab 09/26/20 Unknown Rx TAB] Ondansetron [Zofran Odt] 4 mg PO Q8HR PRN #8 tab.rapdis 09/26/20 Unknown Rx predniSONE [Deltasone] 20 mg PO BID 2 Days #4 tab 03/17/21 Unknown Rx Hyoscyamine Subl [Levsin Sl 0.125 0.125 mg SL Q6HR PRN #20 tab 07/24/21 Unknown Rx TAB] Allergies Allergy/AdvReac Type Severity Reaction Status Date / Time Sulfa (Sulfonamide Allergy Unknown Verified 03/17/21 16:18 Antibiotics) ED Review of Systems ROS: Stated complaint: ABDOMINAL PAIN Other details as noted in HPI Comment: All other systems reviewed and negative ED Past Medical Hx - Past Medical History Hx Hypertension: No Hx Heart Attack/AMI: No Hx Congestive Heart Failure: No Hx Diabetes: No Hx Deep Vein Thrombosis: No Hx Liver Disease: No Hx Renal Disease: No Hx Sickle Cell Disease: No Hx Seizures: No Hx Asthma: No Hx COPD: No Hx HIV: No Additional medical history: Vaginal delivery x 3, frequent/chronic SORE THROAT - Surgical History Hx Pacemaker: No Hx Internal Defibrillator: No Additional Surgical History: hernia repair x 2, endoscopy 1992 - Social History Smoking Status: Former Smoker Substance Use Type: None - Medications Home Medications: Home Medications Medication Instructions Recorded Confirmed Last Taken Type Omeprazole 1 tab PO DAILY 12/28/19 03/17/21 12/26/19 History Ibuprofen [Motrin] 800 mg PO Q8HR PRN #30 tablet 01/19/20 03/17/21 Unknown Rx Lidocain2.5%/Prilocai2.5% [Emla] 1 applic TP ONCE #1 tube 01/19/20 03/17/21 Unknown Rx Hyoscyamine Subl [Levsin Sl 0.125 0.125 mg SL Q6HR PRN #8 tab 09/26/20 03/17/21 Unknown Rx TAB] Ondansetron [Zofran Odt] 4 mg PO Q8HR PRN #8 tab.rapdis 09/26/20 03/17/21 Unknown Rx predniSONE [Deltasone] 20 mg PO BID 2 Days #4 tab 03/17/21 Unknown Rx Hyoscyamine Subl [Levsin Sl 0.125 0.125 mg SL Q6HR PRN #20 tab 07/24/21 Unknown Rx TAB] ED Physical Exam - General Limitations: No Limitations General appearance: alert, in no apparent distress - Head Head exam: Present: atraumatic, normocephalic - Eye Eye exam: Present: normal appearance, PERRL, EOMI Pupils: Present: normal accommodation - ENT ENT exam: Present: mucous membranes moist - Neck Neck exam: Present: normal inspection - Respiratory Respiratory exam: Present: normal lung sounds bilaterally. Absent: respiratory distress - Cardiovascular Cardiovascular Exam: Present: regular rate, normal rhythm. Absent: systolic murmur, diastolic murmur, rubs, gallop - GI/Abdominal GI/Abdominal exam: Present: soft, tenderness (Vague tenderness to left lower quadrant), normal bowel sounds. Absent: distended, hyperactive bowel sounds, hypoactive bowel sounds, organomegaly - Extremities Exam Extremities exam: Present: normal inspection, full ROM, normal capillary refill - Back Exam Back exam: Present: normal inspection. Absent: CVA tenderness (R), CVA tenderness (L), muscle spasm, paraspinal tenderness - Neurological Exam Neurological exam: Present: alert, oriented X3, CN II-XII intact, normal gait - Psychiatric Psychiatric exam: Present: normal affect, normal mood - Skin Skin exam: Present: warm, dry, intact, normal color. Absent: rash ED Course Vital Signs 07/23/21 17:27 Temperature 98.7 F Pulse Rate 83 Respiratory 18 Rate Blood Pressure 170/111 [Right] O2 Sat by Pulse 100 Oximetry ED Medical Decision Making - Lab Data Result diagrams: 07/23/21 22:23 07/23/21 22:23 - Medical Decision Making This patient presents with abdominal pain of unclear etiology. Their evaluation has not identified a emergent etiology for the abdominal pain. Specifically, given the very benign exam, normal laboratory studies, and lack of significant risk factors, I have a very low suspicion for appendicitis, ischemic bowel, bowel perforation, or any other life threatening disease. I have discussed with the patient the level of uncertainty with undifferentiated abdominal pain and clearly explained the need to follow-up as noted on the discharge instructions, or return to the Emergency Department immediately if the pain worsens, develops fever, persistent and uncontrollable vomiting, or for any new symptoms or concerns. I discussed with the patient that this presentation today for abdominal pain could represent a significant risk for an acute abdominal process. Although the tests in the ED were essentially normal, there is still a possibility of a process such as appendicitis, diverticulitis, cholecystitis, ulcer, early bowel obstruction, mesenteric ischemia, kidney stone, or even kidney infection which could subsequently cause disability or . The patient understands that they must return within 24 hours for a recheck or see their physician within 24 hours for re-exam due to the possibility of significant surgical or medical process. Critical care attestation.: If time is entered above; I have spent that time in minutes in the direct care of this critically ill patient, excluding procedure time. ED Disposition Clinical Impression: Diarrhea, Constipation Disposition: HOME / SELF CARE / HOMELESS Is pt being admited?: No Does the pt Need Aspirin: No Condition: Stable Instructions: Constipation, Adult, [id number], Diarrhea, Adult, [id number], Irritable Bowel Syndrome, Adult, Abdominal Pain (ED) Additional Instructions: People who have exocrine pancreatic insufficiency (EPI), a disease that interferes with the bodys ability to digest fat in food, typically experience a host of symptoms that impact their digestive system, including stomach pain, gas, and bloating. The problem is that many of these symptoms overlap with those of other gastrointestinal (GI) conditions, making it hard for doctors to correctly diagnose EPI. Its fairly common for physicians to misdiagnose EPI, says Kirstie oconnor MD, an account development associate yisel of medicine in the division of gastroenterology at the [facility] in [place] who is now in private practice in [place], [place]. A lot of people will come in with nonspecific symptoms. They may say, I have an upset stomach or I have bloating. The doctor needs to probe to find out what the real issue is. Even people who are at risk for EPI can go undiagnosed. A study published in July 2019 in the journal Alimentary Pharmacology and Therapeutics found that testing for the condition was infrequent. The researchers found that only about 7 percent of people with chronic pancreatitis and 2 percent of people with pancreatic cancer two at-risk groups were tested for EPI. If people with EPI are misdiagnosed or remain undiagnosed, they wont receive a prescription for pancreatic enzyme replacement therapy (PERT), which is the proper treatment for the condition. Without these enzymes, the body isnt able to process the fat-soluble vitamins A, D, E, and K, something that can lead to vitamin deficiencies and, eventually, complications such as osteoporosis, vision problems, and even neurological Prescriptions: Hyoscyamine Subl [Levsin Sl 0.125 TAB] 0.125 mg SL Q6HR PRN #20 tab PRN Reason: abdominal pain Referrals: [facility] [Provider Group] - 3-5 Days [facility], [Primary Care Provider] - 3-5 Days
[2021-07-23 22:39] LABS: Basophils # (Auto) 0.1 K/mm3 (0.0-0.1); Basophils % (Auto) 0.9 % (0.0-1.8); Eosinophils # (Auto) 0.2 K/mm3 (0.0-0.4); Eosinophils % (Auto) 2.7 % (0.0-4.3); Hematocrit 39.8 % (30.3-42.9); Hemoglobin 13.4 gm/dl (10.1-14.3); Lymphocytes # (Auto) 2.8 K/mm3 (1.2-5.4); Lymphocytes % (Auto) 37.8 % (13.4-35.0); Mean Corpuscular HGB Conc 34 % (30-34); Mean Corpuscular Volume 93 fl (79-97); Monocytes # (Auto) 0.4 K/mm3 (0.0-0.8); Monocytes % (Auto) 4.8 % (0.0-7.3); Platelet Count 306 K/mm3 (140-440); Red Blood Count 4.29 M/mm3 (3.65-5.03); Red Cell Distribution Width 13.3 % (13.2-15.2)
[2021-07-23 23:04] LABS: Alanine Aminotransferase 10 units/L (7-56); Albumin 4.5 g/dL (3.9-5); Blood Urea Nitrogen 15 mg/dL (7-17); Calcium 8.9 mg/dL (8.4-10.2); Hemolysis Index 11
[2021-07-23 23:08] LABS: BUN/Creatinine Ratio 21; Bilirubin,Direct < 0.2 mg/dL (0-0.2)
== END 2021-07-24 01:54 | disposition home or self-care (01) ==
LOC: ED 15:09
DX: K59.00 Constipation, unspecified (principal); R19.7 Diarrhea, unspecified; Z87.891 Personal history of nicotine dependence; Z88.2 Allergy status to sulfonamides; Z79.899 Other long term (current) drug therapy
CPT/HCPCS: 36415; 80048; 80076; 83690; 84703; 85025; 99283

== ENCOUNTER 2021-10-11 07:19 | Emergency (ER) | payer MEDICAID ==
--- NOTE | 2021-10-11 09:16 | Emergency Department Report ---
ED Abdominal Pain HPI - General Chief Complaint: Pain General Stated Complaint: HIP/ABD PAIN Time Seen by Provider: 10/11/21 08:48 Source: patient Mode of arrival: Ambulatory Limitations: No Limitations - History of Present Illness Initial Comments: 36-year-old black female with a past medical history of GERD resents to the emergency department for evaluation of abdominal pain. She states that she has had intermittent abdominal pain for the last several years, but over the last 3 to 4 days pain has been significantly worse with radiation to her left hip and pelvic area. States that she also has some nausea and abnormal stools. She denies fever, vaginal discharge, but states that she has pressure when she urinates. MD Complaint: abdominal pain -: Gradual, days(s) Location: diffuse (4-5) Radiation: LLQ, other (Left hip and pelvic area) Migration to: no migration Severity scale (0 -10): 9 Quality: aching Consistency: intermittent Associated Symptoms: nausea, dysuria. denies: vomiting, diarrhea, fever, chills, hematemesis, hematochezia, melena, hematuria, anorexia, syncope - Related Data LMP (females 10-50): last week Home Medications Medication Instructions Recorded Confirmed Last Taken Omeprazole 1 tab PO DAILY 12/28/19 03/17/21 12/26/19 Previous Rx's Medication Instructions Recorded Last Taken Type Ibuprofen [Motrin] 800 mg PO Q8HR PRN #30 tablet 01/19/20 Unknown Rx Lidocain2.5%/Prilocai2.5% [Emla] 1 applic TP ONCE #1 tube 01/19/20 Unknown Rx Hyoscyamine Subl [Levsin Sl 0.125 0.125 mg SL Q6HR PRN #8 tab 09/26/20 Unknown Rx TAB] Ondansetron [Zofran Odt] 4 mg PO Q8HR PRN #8 tab.rapdis 09/26/20 Unknown Rx predniSONE [Deltasone] 20 mg PO BID 2 Days #4 tab 03/17/21 Unknown Rx Hyoscyamine Subl [Levsin Sl 0.125 0.125 mg SL Q6HR PRN #20 tab 07/24/21 Unknown Rx TAB] Naproxen [Naprosyn] 500 mg PO BID PRN #14 tab 10/11/21 Unknown Rx Allergies Allergy/AdvReac Type Severity Reaction Status Date / Time Sulfa (Sulfonamide Allergy Unknown Verified 03/17/21 16:18 Antibiotics) ED Review of Systems ROS: Stated complaint: HIP/ABD PAIN Other details as noted in HPI Comment: All other systems reviewed and negative Constitutional: denies: chills, fever, malaise, weakness ENT: denies: congestion Respiratory: denies: shortness of breath Cardiovascular: denies: chest pain, palpitations Gastrointestinal: abdominal pain, nausea. denies: vomiting, diarrhea, hematemes is, melena, hematochezia Genitourinary: denies: urgency, dysuria, frequency, hematuria, discharge, abnormal menses Musculoskeletal: denies: back pain Skin: denies: rash, lesions Neurological: denies: headache, weakness ED Past Medical Hx - Past Medical History Previous Medical History?: Yes Hx Hypertension: No Hx Heart Attack/AMI: No Hx Congestive Heart Failure: No Hx Diabetes: No Hx Deep Vein Thrombosis: No Hx Liver Disease: No Hx Renal Disease: No Hx Sickle Cell Disease: No Hx Seizures: No Hx Asthma: No Hx COPD: No Hx HIV: No Additional medical history: Vaginal delivery x 3, frequent/chronic SORE THROAT, Back pain, Back injury - Surgical History Past Surgical History?: Yes Hx Pacemaker: No Hx Internal Defibrillator: No Additional Surgical History: hernia repair x 2, endoscopy 1992 - Social History Smoking Status: Former Smoker Substance Use Type: None - Medications Home Medications: Home Medications Medication Instructions Recorded Confirmed Last Taken Type Omeprazole 1 tab PO DAILY 12/28/19 03/17/21 12/26/19 History Ibuprofen [Motrin] 800 mg PO Q8HR PRN #30 tablet 01/19/20 03/17/21 Unknown Rx Lidocain2.5%/Prilocai2.5% [Emla] 1 applic TP ONCE #1 tube 01/19/20 03/17/21 Unknown Rx Hyoscyamine Subl [Levsin Sl 0.125 0.125 mg SL Q6HR PRN #8 tab 09/26/20 03/17/21 Unknown Rx TAB] Ondansetron [Zofran Odt] 4 mg PO Q8HR PRN #8 tab.rapdis 09/26/20 03/17/21 Unknown Rx predniSONE [Deltasone] 20 mg PO BID 2 Days #4 tab 03/17/21 Unknown Rx Hyoscyamine Subl [Levsin Sl 0.125 0.125 mg SL Q6HR PRN #20 tab 07/24/21 Unknown Rx TAB] Naproxen [Naprosyn] 500 mg PO BID PRN #14 tab 10/11/21 Unknown Rx ED Physical Exam - General Limitations: No Limitations General appearance: alert, in no apparent distress - Head Head exam: Present: atraumatic, normocephalic - Eye Eye exam: Present: normal appearance. Absent: conjunctival injection, periorbital swelling, periorbital tenderness - ENT ENT exam: Present: normal exam, normal orophraynx - Neck Neck exam: Present: normal inspection, full ROM. Absent: tenderness, lymphadenopathy - Respiratory Respiratory exam: Present: normal lung sounds bilaterally. Absent: respiratory distress, wheezes, rales, rhonchi, stridor, chest wall tenderness - Cardiovascular Cardiovascular Exam: Present: regular rate, normal heart sounds - GI/Abdominal GI/Abdominal exam: Present: soft, tenderness (Left lower quadrant), normal bowel sounds. Absent: distended, guarding, rebound, rigid - Extremities Exam Extremities exam: Present: normal inspection, normal capillary refill. Absent: pedal edema, joint swelling, calf tenderness - Back Exam Back exam: Present: normal inspection. Absent: CVA tenderness (R), CVA tenderness (L), vertebral tenderness - Neurological Exam Neurological exam: Present: alert, oriented X3, CN II-XII intact, normal gait - Psychiatric Psychiatric exam: Present: normal affect, normal mood - Skin Skin exam: Present: warm, dry, intact, normal color ED Course Vital Signs 10/11/21 07:33 Temperature 98.8 F Pulse Rate 91 H Respiratory 20 Rate Blood Pressure 154/98 [Right] O2 Sat by Pulse 100 Oximetry - Reevaluation(s) Reevaluation #1: 10/11/21 10:57 Pain mostly resolved after medications. ED Medical Decision Making - Lab Data Result diagrams: 10/11/21 09:25 10/11/21 09:25 - Radiology Data Radiology results: report reviewed, image reviewed CT of the abdomen and pelvis without contrast: FINDINGS: CT abdomen with IV contrast demonstrates normal appearance of the liver, spleen, pancreas, kidneys, and adrenal glands. Gallbladder is present and is without obvious abnormality. No intrarenal calculi or hydronephrosis. Abdominal aorta contains a small amount of calcified plaque but is otherwise normal. CT pelvis without contrast demonstrates large cystic mass in the right adnexa. Measures approximately 5.5 cm. This may represent an ovarian cyst. No associat ed free fluid. The uterus and left adnexa are unremarkable. GI track is normal. A normal appendix is present in the right lower quadrant. Visualized lung bases are clear. No acute osseous abnormality noted. IMPRESSION: 1. There is a 5.5 cm round cystic mass in the right adnexa, possibly representing ovarian cyst. Further evaluation with pelvic ultrasound is recommended. 2. No other significant finding within the abdomen or pelvis. - Medical Decision Making 36-year-old black female with a past medical history of GERD resents to the emergency department for evaluation of abdominal pain. She states that she has had intermittent abdominal pain for the last several years, but over the last 3 to 4 days pain has been significantly worse with radiation to her left hip and pelvic area. States that she also has some nausea and abnormal stools. She denies fever, vaginal discharge, but states that she has pressure when she urinates. Physical exam unremarkable. Labs and urine without any gross abnormalities noted. CT abdomen and pelvis without any acute abnormalities noted but probable right ovarian cyst. Patient will be discharged home with Naprosyn to use as needed and advised to follow up with pcp or SPECIFICATION WRITER if no improvement or worsening symptoms or return to Ed. She verbalized understanding of and agreement with plan of care. Critical care attestation.: If time is entered above; I have spent that time in minutes in the direct care of this critically ill patient, excluding procedure time. ED Disposition Clinical Impression: Ovarian cyst Qualifiers: Laterality: right Qualified Code(s): N83.201 - Unspecified ovarian cyst, right side Abdominal pain Qualifiers: Abdominal location: generalized Qualified Code(s): R10.84 - Generalized abdominal pain Disposition: HOME / SELF CARE / HOMELESS Is pt being admited?: No Does the pt Need Aspirin: No Condition: Stable Instructions: Ovarian Cyst, [id number], Abdominal Pain, Adult, [id number] Additional Instructions: Take medications as prescribed. Follow-up with SPECIFICATION WRITER or primary care provider for further evaluation and management. Return to the emergency department as needed. Prescriptions: Naproxen [Naprosyn] 500 mg PO BID PRN #14 tab PRN Reason: Pain, Moderate (4-6) Referrals: ÁNGEL OWEN MD [Staff Physician] - 3-5 Days CASEY LEYVA MD [Staff Physician] - 3-5 Days Time of Disposition: 11:06
[2021-10-11 09:59] LABS: Hematocrit 41.3 % (30.3-42.9); Hemoglobin 13.7 gm/dl (10.1-14.3); Mean Corpuscular HGB Conc 33 % (30-34); Mean Corpuscular Volume 93 fl (79-97); Platelet Count 294 K/mm3 (140-440); Red Blood Count 4.43 M/mm3 (3.65-5.03); Red Cell Distribution Width 13.7 % (13.2-15.2)
[2021-10-11 10:04] LABS: Alanine Aminotransferase 8 units/L (7-56); Albumin 4.9 g/dL (3.9-5); Blood Urea Nitrogen 13 mg/dL (7-17); Calcium 9.6 mg/dL (8.4-10.2); Hemolysis Index 9
[2021-10-11 10:13] LABS: BUN/Creatinine Ratio 19
[2021-10-11 10:39] LABS: Mucus,Urine FEW /HPF
[2021-10-11 10:46] LABS: Bilirubin,Urine Negative (Negative); Blood,Urine Negative (Negative); Color,Urine Yellow (Yellow); PH,Urine 7.5 (5.0-7.0); Urobilinogen,Urine < 2.0 mg/dL (<2.0)
--- NOTE | 2021-10-11 10:47 | Cat Scan Report ---
CT abdomen pelvis wo con INDICATION / CLINICAL INFORMATION: abdominal pain. TECHNIQUE: Axial CT imaging of abdomen and pelvis was obtained without contrast. Coronal and sagittal reformatte d imaging obtained and reviewed. All CT scans at this location are performed using CT dose reduction for ALARA by means of automated exposure control. COMPARISON: None available. FINDINGS: CT abdomen with IV contrast demonstrates normal appearance of the liver, spleen, pancreas, kidneys, a nd adrenal glands. Gallbladder is present and is without obvious abnormality. No intrarenal calculi o r hydronephrosis. Abdominal aorta contains a small amount of calcified plaque but is otherwise normal . CT pelvis without contrast demonstrates large cystic mass in the right adnexa. Measures approximately 5.5 cm. This may represent an ovarian cyst. No associated free fluid. The uter us and left adnexa are unremarkable. GI track is normal. A normal appendix is present in the right lower quadrant. Visualized lung bases are clear. No acute osseous abnormality noted. IMPRESSION: 1. There is a 5.5 cm round cystic mass in the right adnexa, possibly representing ovarian cyst. Furth er evaluation with pelvic ultrasound is recommended. 2. No other significant finding within the abdomen or pelvis. Signer Name: Michelle Fry MD Signed: 10/11/2021 10:43 AM Workstation Name: [id number]
[2021-10-11 11:21] VITALS: BP 129/82
== END 2021-10-11 11:35 | disposition home or self-care (01) ==
LOC: ED 07:19
DX: N83.201 Unspecified ovarian cyst, right side (principal); R10.84 Generalized abdominal pain; Z98.890 Other specified postprocedural states; Z87.891 Personal history of nicotine dependence; Z88.2 Allergy status to sulfonamides
CPT/HCPCS: 36415; 74176; 80053; 81001; 83690; 84703; 85027; 99284